=== PATIENT | female | born 1995 | race Caucasian/White ===

== ENCOUNTER 2024-05-25 08:02 | Outpatient (AMB) | payer OTHER, SELFPAY ==
--- OUTSIDE RECORDS SUMMARY | 2024-05-25 08:04 | XMS_ITS | Clinical Summary ---
Author Organization [address] Address [address] [place] [address] [place] [id number] Phone Care Team Providers Care Mineral Technologist Name Role Phone Vicki Miller MD Primary Care Provider [phone] Allergies Active Allergy Reactions Criticality Noted Date Comments Acetaminophen Headache,Nausea And Vomiting 08/08/2011 Fentanyl 09/05/2011 Nausea,vomiting Sumatriptan Succinate 02/13/2011 Cough blood and chest hurts Medications Medication Sig Dispensed Refills Start Date End Date Status levothyroxine sodium (LEVOTHYROXINE ORAL) Take by mouth. Active OMEPRAZOLE ORAL Take 20 mg by mouth. 07/19/2021 Active ARIPiprazole (ABILIFY) 15 mg tablet Take 1 Tablet by mouth daily. Active clotrimazole-beta methasone (LOTRISONE) 1-0.05 % cream Apply locally BID x 5 days 11/11/2023 Active drospirenone-ethi nyl estradioL (GIANVI,ARYA,YA Z) 3-0.02 mg per tablet Take 1 Tablet by mouth daily for 360 days. 11/11/2023 11/05/2024 Active FLUoxetine (PROzac) 10 mg capsule TAKE 1 CAPSULE BY MOUTH EVERY DAY 07/19/2021 Active melatonin-pyridox ine HCl, B6, 10-10 mg tablet, IR and ER, biphasic Daily at bedtime, 0 Refills, Maintenance, 07/19/21 11:54:00 EDT, Partial fill upon patient request if the prescription is for a schedule II opioid drug. 07/19/2021 Active methadone (DOLOPHINE) 10 mg/5 mL solution Take by mouth. 10/14/2019 Acti ve minocycline (MINOCIN,DYNACIN) 100 mg capsule TAKE 1 CAPSULE BY MOUTH 2 TIMES DAILY WITH FOOD-PROTECT SKIN FROM 12/26/2021 Active buPROPion (ZYBAN) 150 mg 12 hr tablet Take 1 tablet (150 mg total) by mouth 1 (one) time each day. 03/11/2024 Active nystatin-triamcin olone (MYCOLOG II) ointment 2x/day to affected area 30 g 05/19/2024 Active fluconazole (DIFLUCAN) 150 mg tablet Take 1 tablet (150 mg total) by mouth every 3 (three) days for 2 doses. 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 Overview (01/14/2024): 07/21/2019 methadone 45-50mg [employer] Depression 08/29/2011 Lumbago 08/05/2011 Post laminectomy syndrome 08/05/2011 Radiculitis, lumbosacral 08/05/2011 Encounters Date Type Department Care Team Description 05/19/2024 3:15 PM EST Office Visit Obstetrics and Gynecology - [address] [phone] Lolis Clement CNM Vulvar itching (Primary Dx); Vaginal discharge from Last 3 Months Immunizations Name Administration Dates Next Due Influenza trivalent, with pr eservative (Fluzone; Afluria) 6mo and older 01/07/2012 Surgical History Surgery Date Site/Laterality Comments BACK SURGERY PROCEDURE: HISTORICAL BACK SURGERY; COMMENT: 04/2011 Medical History Medical History Date Comments Deliberate self-cutting DX:Delib erate self-cutting Asthma DX:Asthma Bipolar disorder (CMS/HCC) DX:Bi polar disorder (HCC) Hypothyroidism DX:Hypothyroidis m Substance abuse (CMS/HCC) DX:Sub stance abuse (HCC) Family History Medical History Relation Name Comments Breast cancer Aunt 2 aunts father side Colon cancer Father Breast cancer Mother 40s Cervical cancer Mother Relation Name Status Comments Aunt Alive Brother Alive Father Mother Alive Sister Alive Social History Tobacco Use Types Packs/Day Years Used Date Smoking Tobacco: Some Days Smokeless Tobacco: Never Tobacco Cessation:Ready to Q uit: Not Asked; Counseling Given: Not Answered Alcohol Use Standard Drinks/Week Comments No 0 (1 standard drink = 0.6 oz pur e alcohol) Sex and Gender Information Value Date Recorded Sex Assigned at Not on file Gender Identity Not on file Sexual Orientation Not on file Job Start Date Occupation Industry Not on file Not on file Not on file Obstetrics History Last Filed Vital Signs Vital Sign Reading Time Taken Comments Blood Pressure 139/87 05/19/2024 1:24 PM EST Pulse 101 05/19/2024 1:24 PM EST Temperature - - Respiratory Rate 16 05/19/2024 1:24 PM EST Oxygen Saturation - - Inhaled Oxygen Concentration - - Weight 114 kg (251 lb 12.8 oz) 05/19/2024 1:24 P M EST Height 158 cm (5' 2.21 ) 05/19/2024 1:24 PM EST Body Mass Index 45.75 05/19/2024 1:24 PM EST Plan of Treatment Health Maintenance Due Date Last Done Comments Pneumococcal Vaccine: Pediatrics (0 to 5 Years) and At-Risk Patients (6 to 64 Years) (1 of 2 - PCV) 1999 Hepatitis B Vaccines (1 of 3 - 19+ 3-dose series) 2012 Cholesterol Screening (Lipid Panel) 03/30/2022 11/18/2011 Depression Screening 03/30/2022 Medicare Annual Wellness Visit 03/30/2022 Social Influencers of Health Screening 03/30/2022 COVID-19 Vaccine ( season) 2023 06/28/2023, 10/02/2020, 09/04/2020 Cervical Cancer Screening: Pap Smear 07/02/2025 07/02/2022, 07/02/2022 DTaP,Tdap,and Td Vaccines (2 - Td or Tdap) 07/20/2031 07/19/2021 HIV Screening Completed 08/08/2011 Hepatitis C Screening Completed 08/08/2011 Influenza Vaccine Completed 12/06/2023, , 03/11/2021, Additional history exists HIB Vaccines Aged Out No longer eligi ble based on patient's age to complete this topic HPV Vaccines Aged Out No longer eligi ble based on patient's age to complete this topic Hepatitis A Vaccines Aged Out No long er eligible based on patient's age to complete this topic IPV Vaccines Aged Out No longer eligi ble based on patient's age to complete this topic MMR Vaccines Aged Out No longer eligi ble based on patient's age to complete this topic Meningococcal ACWY Vaccine Aged Out N o longer eligible based on patient's age to complete this topic RSV Immunization Patients Under 20 months Aged Out No longer eligible based on patient's age to complete this topic Varicella Vaccines Aged Out No longer eligible based on patient's age to complete this topic Procedures Procedure Name Priority Date/Time Associated Diagnosis Comments POC WET MOUNT Routine 05/19/2024 2:01 PM EST Vulvar itching PAP SMEAR Routine 07/02/2022 LIPID PANEL Routine 11/18/2011 HEPATITIS C SCREENING Routine 08/08/2011 HIV SCREENING Routine 08/08/2011 from Last 3 Months or Most Recently Relevant to Health Maintenance Results * (ABNORMAL) POC Wet Mount (05/19/2024 2:01 PM EST) Trichomonas, Wet Prep POC Absent Absent Yeast, Wet Prep POC Positive(A) Not Applicable, Negative Clue Cells, Wet Prep POC Negative Not Applicable, Negative Whiff Test, Wet Prep POC Negative Not Done, Negative PH FL Type POC 4.0 Vaginal Fluid Vaginal structure / Unknown 05/19/2024 2:01 PM EST Lolis Clement CNM POINT OF CARE TEST ENTER/EDIT ORDERABLES * Pap smear (07/02/2022) 07/02/2022 Narrative HISTORICAL TESTING LAB RESULTING AGENCY - 07/14/2022 6:25 AM EDT [id number] THINPREP PAP, IMAGED: NEGATIVE FOR SQUAMOUS INTRAEPITHELIAL LESION AND MALIGNANCY . ORION CELESTIN(ASCP) (CASE ELECTRONICALLY SIGNED 07 12 2022) ADEQUACY: SATISFACTORY ENDOCERVICAL/TRANSFORMATION ZONE COMPONENT PRESENT. SOURCE: THINPREP PAP HPV IF ASCUS, CERVICAL, IMAGED CLINICAL INFORMATION: HPV IF DIAGNOSIS OF ASCUS. PAP HX NEGATIVE, [Z01.419] Ursula Galeanonz CN LAB CYTOLOGY ORDERAB LES HISTORICAL TESTING LAB RESULTING AGENCY * (ABNORMAL) Lipid panel (11/18/2011) LDL/HDL Ratio 4 0 - 4 Triglycerides 243(A) 0 - 150 mg/dL Cholesterol 193 0 - 200 mg/dL HDL 52 40 mg/dL LDL Cholesterol 93(A) 0 - 10 mg/dL Blood Venous blood specimen / Unknown Historical Provider LAB BLOOD ORDERAB LES * HIV Screening (08/08/2011) Pathologist [facility] HIV Screening Abstracted Historical Provider [facility] * Hepatitis C Screening (08/08/2011) Pathologist [facility] Hepatitis C Screening Abstracted Historical Provider MD GANN MAINTENJEN E from Last 3 Months or Most Recently Relevant to Health Maintenance Care Teams Mineral Technologist Relationship Specialty Start Date End Date Vicki Miller MD [address] [place] [address] , [address] [facility] D/B/A: [facility] [place] Diallo PCP - General Internal Medicine 06/13/14
--- OUTSIDE RECORDS SUMMARY | 2024-05-25 08:04 | XMS_ITS | Encounter Summary ---
Author Organization [facility] Address [address] [place] [address] Care Team Providers Care Inner Tube Cutter Name Role Phone Vicki Miller MD Primary Care Provider [phone] Reason for Visit * Reason Comments Vaginitis/Bacterial Vaginosis Vaginal Discharge Encounter Details Date Type Department Care Team (Late st Contact Info) Description 05/19/2024 3:15 PM EST Office Visit Obstetrics and Gynecology - [address] [phone] Lolis Clement, [address] [place] [address] Vulvar itching (Primary Dx); Vaginal discharge Social History Tobacco Use Types Packs/Day Years [...] file Not on file Not on file documented as of this encounter Last Filed Vital Signs Vital Sign Reading [...] Mass Index 45.75 05/19/2024 1:24 PM EST documented in this encounter Ordered Prescriptions Prescription Sig Dispensed Refills Start Date End Da te nystatin-triamcinolone (MYCOLOG II) ointment 2x/day to affected area 30 g 05/19/2024 fluconazole (DIFLUCAN) 150 mg tablet Take 1 tablet (150 mg total) by mouth every 3 (three) days for 2 doses. If symptoms not resolved in 3 days, take second dose 2 tablet 05/19/2024 05/23/2024 documented in this encounter Progress Notes * Lolis Juanita Clement, CARITO - 05/19/2024 3:15 PM EST VULVAR SKIN CARE GUIDELINES NOTE: The goal is to promote healthy vulvar skin. This is done by decreasing and removing chemicals, moisture, or rubbing (friction). Products listed below have been suggested for use because of their past success in helping to decrease or relieve vulvar/vaginal burning, irritation, or itching. LAUNDRY PRODUCTS 1. Use the detergent brand ALL FREE CLEAR on all laundry that goes into your washer, every load, every time. NO SUBSTITUTIONS. Use 1/3 to ?? the suggested amount per load. 2. Do not use fabric softeners or dryer sheets in the washer or dryer, even those advertised as ???free?? . If you use a shared washer or dryer, such as a laundromat, apartment, or dorm you must handwash, in ALL FREE CLEAR and line dry your underwear . You can use dryer balls to help soften clothes. 3. Stain removing products (including bleach). Soak and rinse in clear water all underwear and towels on which you have used a stain removing product. Then wash in your regular washing cycle using ALL FREE CLEAR. This removes as much of the product as possible. White vinegar or lemon juice, 1/4 to 1/3 cup per laundry load, can be used to freshen clothing and remove oils. CLOTHING 1. Wear white all cotton underwear, not nylon with a cotton crotch. Cotton allows air in and moisture out. Do not wear underwear when sleeping at night. Do not wear thongs. Loose fitting cotton boxers or cotton pajama bottoms are fine. 2. Avoid pantyhose. If you must wear them, either cut out the homero crotch (if you cut out the crotch be sure to leave about 1/4 inch of fabric from the seam to prevent running) or wear thigh high hose. Many stores now carry thigh high hose. 3. Avoid tight clothing, especially clothing made of synthetic fabrics. Remove wet bathing and exercise clothing as soon as you can. BATHING AND HYGIENE 1. Do not use bath soaps, lotions, gels, etc. which contain perfumes. These may smell nice, but canbe irritating. This includes many baby products and feminine hygiene products marked gentle or mild . DOVE FOR SENSITIVE SKIN, NEUTROGENA, BASIS, AVEENO, OR PEARS are the soaps we suggest. Your partner needs to use one of these soaps also. Do not use soap directly on the vulvar skin. Just warm wa ter and your hand will keep the vulvar area clean without irritating the skin. 2. Do not use bubble bath, bath salts, and scented oils. You may apply a neutral (unscented, non-perfumed) oil or lotion to damp skin after getting out of the tub or shower. Do not apply lotion directly to the vulva. 3. Do not scrub vulvar skin with a washcloth, washing with your hand and warm water is enough for good cleaning. 4. Pat dry rather than rubbing with a towel. Or, use a chair frame builder on a cool setting to dry the vulva. 5. Baking Soda soaks. Soak in lukewarm (not hot) bath water with 4-5 tablespoons of baking soda to help soothe vulvar itching and burning. Soak 1 to 3 times a day for 10 minutes. If you are using a sitz bath, use 1 to 2 teaspoons of baking soda. 6. Use white, unscented toilet paper. Do not use toilet paper with aloe. 7. Do not use feminine hygiene sprays, perfumes, adult, or baby wipes. You can use Water Wipes or Tucks hemorrhoid pads to clean if you feel the need. If urine causes burning of the skin, pour lukewarm water over the vulva while urinating. Pat dry rather than wiping. 8. Do not use deodorized pads and tampons. Tampons may be used when the blood flow is heavy enough to soak one tampon in four hours or less. Tampons are safe for most women, but wearing them too longor when the blood flow is light may result in vaginal infection, increased discharge, odor, or toxic shock syndrome. Also, use only pads that have a cotton liner, not nylon mesh weave, that comes in contact with your skin. Nylon traps moisture and keeps blood and discharge against your skin longer.Cotton unscented pads STAYFREE, CAREFREE, or 7th GENERATION. 9. Do not use xvve-vqw-cxqvkpa creams or ointments until you ask your health care provider. When buying ointments, be sure that they are paraben and fragrance-free. 10. Small amounts of coconut oil, extra virgin olive oil, vegetable oil, zinc oxide ointment, or plain Vaseline may be applied to your vulva as often as needed to protect the skin. It also helps to decrease skin irritation during your period and when you urinate. 11. Do not douche. Baking soda soaks or rinsing with warm water will help rinse away extra discharge and help with odor. 12. Do not shave or use hair removal products on the vulvar area. You may use scissors to trim the pubic hair close to the vulva. Laser hair removal is an option. 13. Some women may have problems with chronic dampness. Keeping dry is important. Do not wear pads on a daily basis. Choose cotton fabrics whenever you can. Keep an extra pair of underwear with you and change if you become damp. GOLD WINTER or ZEASORB powder may be applied to the groin area 1 to 2 times per day to help absorb moisture. Do not use powders that contain cornstarch. 14. Dryness and irritation during intercourse may be helped by using a lubricant. Use a small amount of a pure vegetable oil (solid, liquid, or extra virgin olive oil). These oils contain no chemicals to irritate vulvar/vaginal skin. Vegetable oils will rinse away with water and will not increase your chances of infection. Wdle-csf-rutlrdz water-based lubricants tend to dry out before intercourseis over, causing small tears in the vagina, and may also contain chemicals that can irritate your vulvar skin. It may be helpful to use a non-lubricated, non-spermicidal condom, and use vegetable oilas the lubricant. This will help keep the semen off the skin which can decrease burning and irritation after intercourse. CONTROL OPTIONS 1. control pills do not increase your chances of getting a yeast infection. 2. Lubricated condoms, contraceptive jellies, creams, or sponges may cause itching and burning. 3. The use of latex condoms with a vegetable oil as a lubricant (#14 above) is suggested to protectyour skin. Petroleum-based lubricants may affect the integrity of condoms when used for control or prevention of sexually transmitted infections. Our experience has not found this to be a problem with vegetable-based oils. However, the Centers for Disease Control recommend that condoms not beused with any oil-based lubricants for control or prevention of sexually transmitted disease. * Lolis Clement CNM - 05/19/2024 3:15 PM EST Encounter Date: 05/19/2024 Chief Complaint Patient presents with Vaginitis/Bacterial Vaginosis Subjective: Kalyn Weathers is a 29 y.o. who presents for evaluation of a vaginal infection. Main symptom is discharge which is also associated with itching. Symptoms started a couple of weeks ago. She has tried Monistat 7 which helped some but sx continue. She denies urinary symptoms, pelvic pain, fevers, chills. She is sexually active with one male partner. She uses vasectomy for contraception. No condoms. Declines STI testing. Review of Systems: As in HPI. All other systems reviewed and negative. Patient Active Problem List Diagnosis Depression Lumbago Methadone maintenance therapy patient ([facility]) Post laminectomy syndrome Radiculitis, lumbosacral Past Medical History: Diagnosis Date Asthma DX:Asthma Bipolar disorder (CMS/[facility]) DX:Bipolar disorder (HCC) Deliberate self-cutting DX:Deliberate self-cutting Hypothyroidism DX:Hypothyroidism Substance abuse (CMS/[facility]) DX:Substance abuse (HCC) Past Surgical History: Procedure Laterality Date BACK SURGERY PROCEDURE: HISTORICAL BACK SURGERY; COMMENT: 04/2011 Family History Problem Relation Name Age of Onset Breast cancer Mother 40s Cervical cancer Mother Colon cancer Father Breast cancer Aunt 2 aunts father side Social History Socioeconomic History Marital status: Single Spouse name: None Number of children: None Years of education: None Highest education level: None Occupational History None Tobacco Use Smoking status: Some Days Smokeless tobacco: Never Substance and Sexual Activity Alcohol use: No Drug use: No Sexual activity: None Comment: boyfriend x 3 years Other Topics Concern None Social History Narrative None OB History No obstetric history on file. Prior to Admission medications Medication Sig Start Date End Date Taking? Authorizing Provider buPROPion (ZYBAN) 150 mg 12 hr tablet Take 1 tablet (150 mg total) by mouth 1 (one) time each day. 03/11/24 Yes Historical Provider, ARIPiprazole (ABILIFY) 15 mg tablet Take 1 Tablet by mouth daily. Historical Provider, clotrimazole-betamethasone (LOTRISONE) 1-0.05 % cream Apply locally BID x 5 days 11/11/23 HistoricalProviderMD drospirenone-ethinyl estradioL (GIANVI,ARYA,ANGI) 3-0.02 mg per tablet Take 1 Tablet by mouth daily for 360 days. 11/11/23 11/05/24 Historical Provider, fluconazole (DIFLUCAN) 150 mg tablet Take 1 tablet (150 mg total) by mouth every 3 (three) days for2 doses. If symptoms not resolved in 3 days, take second dose 05/19/24 05/23/24 Lolis Clement CNM FLUoxetine (PROzac) 10 mg capsule TAKE 1 CAPSULE BY MOUTH EVERY DAY 07/19/21 Historical Provider, levothyroxine sodium (LEVOTHYROXINE ORAL) Take by mouth. Historical Provider, melatonin-pyridoxine HCl, B6, 10-10 mg tablet, IR and ER, biphasic Daily at bedtime, 0 Refills, Maintenance, 07/19/21 11:54:00 EDT, Partial fill upon patient request if the prescription is for a schedule II opioid drug. 07/19/21 Historical Provider, methadone (DOLOPHINE) 10 mg/5 mL solution Take by mouth. 10/14/19 Historical Provider, minocycline (MINOCIN,DYNACIN) 100 mg capsule TAKE 1 CAPSULE BY MOUTH 2 TIMES DAILY WITH FOOD-PROTECT SKIN FROM 12/26/21 Historical Provider, nystatin-triamcinolone (MYCOLOG II) ointment 2x/day to affected area 05/19/24 Lolis Clement CNM OMEPRAZOLE ORAL Take 20 mg by mouth. 07/19/21 Historical Provider, Allergies Allergen Reactions Acetaminophen Headache and Nausea And Vomiting Fentanyl Nausea,vomiting Sumatriptan Succinate Cough blood and chest hurts Objective: Vitals: 05/19/24 1324 BP: 139/87 BP Location: Right arm Patient Position: Sitting BP Cuff Size: Adult Pulse: 101 Resp: 16 Weight: 114 kg (251 lb 12.8 oz) Height: 1.58 m (62.21 ) Gen: Alert, cooperative. Well-appearing on today's exam NEUROLOGIC: speech fluent, grossly intact PSYCH: Normal affect. LYMPH: No inguinal lymphadenopathy. ABDOMEN: Soft, non-tender, no palpable masses or organomegally. PELVIC: External Genitalia: Normal appearing external genitalia, no lesions Urethral meatus: Normal Vagina: Normal appearance. Mucosa is pink. Mod amt white discharge. No lesions. Cervix: Normal in appearance without lesions. Uterus: Small, mobile, anteverted, non-tender. Adnexa: No palpable masses or tenderness ANUS: Normal, no lesions EXT: No edema, tenderness, discoloration Wet mount: neg clue/trich SCOTTY: pos yeast Whiff: neg pH: 4.0 All tests above performed in office and reviewed by me today Assessment/Plan: 29 y.o. with 1. Vulvar itching POC Wet Mount 2. Vaginal discharge Orders Placed This Encounter Procedures POC Wet Mount Reviewed vulvar and vaginal health and hygiene and how to use medications Will tx based on results. Follow up in about 6 months (around 11/16/2024) for bilingual trainer annual. Lolis Clement CNM documented in this encounter Plan of Treatment Not on file documented as of this encounter Procedures Procedure Name Priority Date/Time Associated Diagnosis Comments POC WET MOUNT Routine 05/19/2024 2:01 PM EST Vulvar itching documented in this encounter Results * (ABNORMAL) POC Wet Mount (05/19/2024 [...] CNM POINT OF CARE TEST ENTER/EDIT ORDERABLES documented in this encounter Visit Diagnoses Diagnosis Vulvar itching- Primary Vaginal discharge Leukorrhea, not specified as infective documented in this encounter Historical Medications * This list may reflect changes made after this encounter. Medication Sig Dispensed Refills Start Date End Date buPROPion (ZYBAN) 150 mg 12 hr tablet Take 1 tablet (150 mg total) by mouth 1 (one) time each day. 03/11/2024 added in this encounter Care Teams Inner Tube Cutter Relationship Specialty Start Date End Date Vicki Miller MD [address] [place] [address] , [address] [facility] D/B/A: [facility] [place] PCP - General Internal Medicine 06/13/14 documented as of this encounter
--- NOTE | 2024-05-25 11:45 | MHC.OFFVISWM ---
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 Allergies fentanyl Allergy (Unknown, Verified 05/18/24 15:51) rash sumatriptan [Imitrex] Allergy (Unknown, Verified 05/18/24 15:51) chest pain Medication List - Last Reconciled 05/25/24 by Michael Fuentes MD aripiprazole (Abilify) 30 mg PO BEDTIME duloxetine 60 mg PO DAILY levothyroxine 50 mcg PO DAILY zolpidem (Ambien) 5 mg PO BEDTIME HPI 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: Details: Start time: 11.42amam, End time: 12.18pm ?I spent 31 minutes speaking with the patient on the phone plus an additional 5 minutes reviewing and updating records for a total of 36 minutes HPI Comments Details: Previous weight loss efforts: exercise, self diets Wakes up: 6am, Sleeps: 11pm Breakfast: 6am (Bagels, cereal, microwaved food), or Slimfast Lunch: 12pm (Lean cousine, Delly sandwich) Dinner: 6pm (chicken Snacks: 3-4pm (Pretzels and hummus, [employer] protein bar, 8-9pm (Pretzels and hummus, crackers) Exercise: Has home treadmill Fluids: Coffee: just quit, tea: rarely, soda: none, juice: Gatorade zero, ETOH: rarely PFSH Medical History (Updated 05/25/24 @ 11:49 by Michael Fuentes MD) Insomnia Back pain Depression Bipolar 1 disorder Morbid obesity Surgical History (Updated 05/18/24 @ 15:53 by Sophie Bingham CMA) Hx of tonsillectomy Hx of discectomy Family History (Updated 05/18/24 @ 15:54 by Sophie Bingham CMA) Mother Depression Anxiety Father No problems noted. Social History (Updated 05/18/24 @ 15:54 by Sophie Bingham CMA) Alcohol intake: current Alcohol intake frequency: a few times a month Patient Tobacco Use Status: Former Tobacco user Telehealth Telehealth Telehealth Platform: Telephone Location of provider rendering services: practice address Location of patient: address on file Patient Identification confirmed using: Name, : Yes Telehealth method: voice only Patient verbally consented to treatment: Yes Patient verbally consented to billing insurance company: Yes Patient informed of any privacy concerns related to visit: Yes Minutes spent on Phone/Video with Pt.: 36 Assessment & Plan Assessment & Plan (1) Morbid obesity: Code(s): E66.01 - Morbid (severe) obesity due to excess calories Category: Medical Plan: 1.? Plan for lap sleeve gastrectomy. If diaphragmatic or ventral hernias are present at time of surgery, these will be repaired laparoscopically as well. I emphasized the importance of close follow-up, adherence to instructions and good communication. The surgery does not replace the need to change your lifestlyle which is the cause of the obesity problem. The surgery provides the motivation to try again to change your lifestyle, it reduces the appetite and make the transition to a better lifestyle easier and doubles the amount of weight you would lose compared to doing the lifestyle change without the surgery. You will need to be on a liquid diet with protein shakes for 2 weeks before surgery to maximize weight loss and boost your nutritional status to recover better from surgery and also for the first two weeks after surgery to let the stomach heal before we introduce other foods. After the first 2 weeks we will introduce protein bars and soft foods like scrambled eggs, cottage cheese and yogurt and after the 6th week will introduce meat, fish and cooked vegetables in small amounts. Over time you should be able to eat everything in small amounts. Side effects like nausea, vomiting, heartburn or abdominal pain are not common in the practice unless you are not following in the practice. This operation requires lifetime commitment to following in our practice and communication with me. You will much less weight and experience side effects if you don?t communicate or not following in the practice. Complications are rare and in our practice is about 1/10 of the national average. However, you can develop bleeding that may require transfusion (hasn?t happened for year in the practice), you may from complications (we did not have any deaths in the practice) and infections. Infections are usually a result of breakdown in communication or not understanding or following directions correctly. They are difficult to treat, they can happen during the first 6 weeks, they may require to be in the hospital for weeks or even months, not being able to eat by mouth and you may have drains and surgeries to try and correct the issue. Other risks and complications include possible conversion to an open procedure, leaks, small bowel obstruction, blood clots, cardiac, or pulmonary complications, as joint terminal attack controller complications such as ulcers, insufficient weight loss and vitamin deficiencies. 2. You will receive a link of our software shamika to generate an individualized nutritional and exercise plan specific for you. Please send me a screenshot of the plans you will generate Meal to include lean meat (beef, fish, pork, turkey, chicken), or panamanian yogurt, or egg whites, or beans with a salad with olive oil and fruits (berries, pears, apples, kiwi). Avoid salt, breads, potatoes, rice, pasta, desserts. ?3. If you choose shakes, each shake would be drunk slowly, like coffee in a period of 2 hours. ?4. If you choose bars, cut each bar in 4 pieces and eat each piece in 30min ?to make each bar last 2 hours. ?5. I emphasized the importance of measuring accurately the food portion and measure it when serving the food in plate ?6. The meal portions include a specific number of forks of meat and salad. You always eat the meat portion but you can replace up to half of salad/vegetables portion with rice, potatoes or pasta, or a fruit ?if you like. The less you do it the better weight loss will be. ?7. One full-size fork is what it can be scooped on the fork without falling aside and not what can be bit with the fork. Use regular forks like those you find in a typical restaurant. ?8.? Please buy the body composition scale we discussed and send me weight measurements as soon as possible and then once a week. Always include your diet and exercise plan. 9. The best choice would be to purchase a stationary bike, elliptical or treadmill at home that can track calories. Let me know if you do so I can give you an exercise plan. ?10.?It is important of avoiding and for at least 18 months postoperatively and has been discussed at the infosession. ?11. Goal is to lose at least 1.5-2lbs per week ?12. Goal to lose 10% of your weight before surgery, which is about 25lbs. Ultimate weight goal: 225lbs before surgery 13. Please follow the diet plan exactly without any change. If you don't like something about the plan or you feel hungry you need to communicate with me so I can help you revise the plan. You should not change the plan yourself. 14. To be scheduled for EGD due to the history of sleeve gastrectomy and anemia. The possibility of biopsies was discussed. Patient needs to avoid use of NSAIDs and aspirin for 1 week prior to EGD. You must be on liquids only the day before your endoscopy. Risks of perforation and bleeding was discussed with the patient. This will be an outpatient procedure with IV sedation. Orders: Orders Insulin Today E66.01 - Morbid (severe) obesity due to excess calories Hemoglobin A1c Today E66.01 - Morbid (severe) obesity due to excess calories H Pylori Breath Test Today E66.01 - Morbid (severe) obesity due to excess calories Lipid Panel Today E66.01 - Morbid (severe) obesity due to excess calories Vitamin B12 and Folate Today E66.01 - Morbid (severe) obesity due to excess calories C Reactive Protein Today E66.01 - Morbid (severe) obesity due to excess calories Vitamin B1 Today E66.01 - Morbid (severe) obesity due to excess calories Vitamin A Today E66.01 - Morbid (severe) obesity due to excess calories TSH reflex Free T4 Today E66.01 - Morbid (severe) obesity due to excess calories Vitamin D 25-OH Total Today E66.01 - Morbid (severe) obesity due to excess calories XR chest 2V Today E66.01 - Morbid (severe) obesity due to excess calories FL upper GI w air Today E66.01 - Morbid (severe) obesity due to excess calories Complete Blood Count Auto Diff Today E66.01 - Morbid (severe) obesity due to excess calories IRON PROFILE Today E66.01 - Morbid (severe) obesity due to excess calories Comprehensive Met. Panel Today E66.01 - Morbid (severe) obesity due to excess calories Zinc Today E66.01 - Morbid (severe) obesity due to excess calories Ferritin Today E66.01 - Morbid (severe) obesity due to excess calories US abdomen comp w elastography Today E66.01 - Morbid (severe) obesity due to excess calories ECG 12 lead EKG Today E66.01 - Morbid (severe) obesity due to excess calories Referrals Behavioral Health Referral E66.01 - Morbid (severe) obesity due to excess calories Nutrition/Dietitian Referral E66.01 - Morbid (severe) obesity due to excess calories
[2024-05-25 11:56] VITALS: BMI 40.2
== END 2024-05-25 12:19 | disposition home or self-care (01) ==
LOC: HO.HBS 08:02
PROVIDERS: PCP Pediatrics; Visit Provider Surgery
DX: E66.813 Obesity, class 3 (principal); Z68.41 Body mass index [BMI] 40.0-44.9, adult
CPT/HCPCS: 99203

== ENCOUNTER → 2024-05-25 08:02 | Outpatient (BNVA) | payer OTHER, SELFPAY | PROVIDERS: PCP Pediatrics; Visit Provider Surgery ==

== ENCOUNTER 2024-06-10 06:08 | Outpatient (REF) | payer OTHER, SELFPAY ==
--- NOTE | ~2024-06-10 | XR_ITS ---
CLINICAL HISTORY: E66.01 - Morbid (severe) obesity due to excess calories 2 view chest x-ray Comparison: None Findings: No focal consolidation. No pleural effusion or pneumothorax. Normal size cardiac silhouette. No acute fracture. IMPRESSION: 1. No acute findings. This document has been electronically signed by: Rola Hendrix MD on 06/10/2024 11:08:03
--- OUTSIDE RECORDS SUMMARY | 2024-06-10 06:11 | XMS_ITS | Encounter Summary ---
Author Organization [facility] Address [address] [place] [address] Care Team Providers Care Team Driver Name Role Phone Vicki Miller MD Primary Care Provider [phone] Reason for Visit * Reason Comments Vaginitis/Bacterial Vaginosis Vaginal Discharge Encounter Details Date Type Department Care Team (Late st Contact Info) Description 05/19/2024 3:15 PM EST Office Visit Obstetrics and Gynecology - [address] [address] Lolis Clement, [address] [place] [address] Vulvar itching (Primary Dx); Vaginal discharge Social History Tobacco Use Types Packs/Day Years Used Date Smoking Tobacco: Some Days Smokeless Tobacco: Never Tobacco Cessation:Ready to Q uit: Not Asked; Counseling Given: Not Answered Alcohol Use Standard Drinks/Week Comments No 0 (1 standard drink = 0.6 oz pur e alcohol) Comments Unknown Sex and Gender Information Value Date Recorded Sex Assigned at Not on file Legal Sex Female 6:52 AM EST Gender Identity Not on file Sexual Orientation Not on file documented as of this [...] in this encounter Ordered Prescriptions Prescription Sig Dispense Quantity Refills Last Filled Start Date End Date nystatin-triamcino lone (MYCOLOG II) ointment 2x/day to affected area 30 g 05/19/2024 fluconazole (DIFLUCAN) 150 mg tablet Take 1 tablet (150 mg total) by mouth every 3 (three) days for 2 doses. If symptoms not resolved in 3 days, take second dose 2 tablet 05/19/2024 documented in this encounter Progress Notes * Lolis Grant Racquel, CARITO - 05/19/2024 3:15 PM EST VULVAR [...] rubbing with a towel. Or, use a unhairing machine operator on a cool setting to dry the [...] or 7th GENERATION. 9. Do not use pwgo-zuc-qzcslyh creams or ointments until you ask your [...] will not increase your chances of infection. 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) Post laminectomy syndrome Radiculitis, lumbosacral Past Medical History: Diagnosis Date Asthma DX:Asthma Bipolar disorder (CMS/HCC) DX:Bipolar disorder (HCC) Deliberate self-cutting DX:Deliberate self-cutting Hypothyroidism DX:Hypothyroidism Substance abuse ([facility]) DX:Substance abuse ([facility]) Past Surgical History: Procedure Laterality Date BACK [...] Apply locally BID x 5 days 11/11/23 HistoricalProMD inga drospirenone-ethinyl estradioL (GIANVI,LORYNA,ANGI) 3-0.02 mg per tablet Take 1 Tablet [...] in about 6 months (around 11/16/2024) 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 Lolis Clement CNM documented in this [...] / Unknown 05/19/2024 2:01 PM EST Lolis RANDLE POINT OF CARE TEST ENTER/ED IT ORDERABLES Final Result documented in this encounter Visit Diagnoses Diagnosis Vulvar itching- Primary Vaginal discharge Leukorrhea, not specified as infective documented in this encounter Historical Medications * This list may reflect changes made after this encounter. buPROPion (ZYBAN) 150 mg 12 hr tablet Take 1 tablet (150 mg total) by mouth 1 (one) time each day. 03/11/2024 added in this encounter Care Teams Team Driver Relationship Specialty Start Date End Date Vicki Miller MD [address] [place] [address] , [address] [facility] [place] PCP - General Internal Medicine 06/13/14 documented as of this encounter
[2024-06-10 06:25] LABS: MANUAL DIFF FLAG NO
--- NOTE | 2024-06-10 06:44 | ECG_ITS ---
Test Reason : E66.01 Blood Pressure : */* mmHG Vent. Rate : 81 BPM Atrial Rate : 81 BPM P-R Int : 170 ms QRS Dur : 82 ms QT Int : 372 ms P-R-T Axes : 68 50 54 degrees QTcB Int : 432 ms Normal sinus rhythm Normal ECG No previous ECGs available Referred By: Michael Fuentes Electronically Signed By: MARA FALLON
[2024-06-10 07:44] LABS: Basophils Percent Auto 0.4 % (0-2); Eosinophils Absolute Auto 0.1 X10*3/uL (0.0-0.4); Eosinophils Percent Auto 0.7 % (0-4); Hematocrit 40.1 % (37.0-47.0); Hemoglobin 13.3 g/dl (12.0-16.0); Imm Gran Abs Auto 0.05 X10*3/uL (0.00-0.03); Imm Gran Pct Auto 0.6 % (0.0-0.4); Lymphocytes Absolute Auto 3.7 X10*3/uL (1.2-4.9); Lymphocytes Percent Auto 43.8 % (20-40); Mean Corpuscular HGB Conc 33.2 g/dl (31.0-35.0); Mean Corpuscular Hemoglobin 28.1 pg (27.0-33.0); Mean Corpuscular Volume 84.8 fL (80.0-98.0); Mean Platelet Volume 9.8 fL (9.4-12.3); Monocytes Absolute Auto 0.5 X10*3/uL (0.1-1.2); Monocytes Percent Auto 5.9 % (2-11); Neutrophils Absolute Auto 4.1 x10*3/uL (2.0-8.3); Neutrophils Percent Auto 48.6 % (45-73); Platelet Count 262 X10*3/uL (160-400); Red Blood Count 4.73 X10*6/uL (4.20-5.50); Red Cell Distribution Width 12.6 % (11.0-16.0); White Blood Count 8.5 X10*3/uL (4.8-10.8)
[2024-06-10 07:56] LABS: Estimated Average Glucose 235 mg/dL; Hemoglobin A1C 289.8588 umol/L; Hemoglobin A1c % 9.8 % (<6.0); Total Hemoglobin (HGBA1C) 3471.7924 umol/L
[2024-06-10 08:21] LABS: Alanine Aminotransferase 163 U/L (0-31); Alkaline Phosphatase 82 U/L (39-117); Anion Gap 12 (12-20); Aspartate Amino Transferase 95 U/L (5-31); Bilirubin Total 0.5 mg/dL (0.0-1.0); Blood Urea Nitrogen 11 mg/dL (9-16); C Reactive Protein 1.85 mg/dL (< or = 0.50); Calcium 9.3 mg/dL (8.4-10.2); Carbon Dioxide 26 mmol/L (22-29); Chloride 102 mmol/L (96-108); Cholesterol 221 mg/dL (<200); Estimated Glomerular Filt Rate > 60; Glucose Random 147 mg/dL (60-115); HDL Cholesterol 43 mg/dL (>40); Iron 70 mcg/dL (30-160); LDL Cholesterol Calculated 151 mg/dL (<100); Percent Iron Saturation 22 % (15-50); Potassium 3.8 mmol/L (3.3-5.1); Sodium 136 mmol/L (135-145); Total Iron Binding Capacity 314 mcg/dL (228-428); Total Protein 7.6 g/dL (6.5-8.0); Triglycerides 137 mg/dL (<150); Unsaturated Iron Binding 244 ug/dL
[2024-06-10 08:53] LABS: Folate 8.6 ng/mL (> or = 4.0); Vitamin B12 559 pg/mL (200-900)
[2024-06-10 08:57] LABS: Ferritin 165 ng/mL (10-122); Insulin 21 uU/mL (2-29); TSH reflex Free T4 3.71 uIU/mL (0.32-4.0); Vitamin D 25-OH Total 19.5 ng/mL (>30)
[2024-06-14 12:08] LABS: Zinc 76 mcg/dL (60-130)
[2024-06-14 13:23] LABS: Vitamin A 48 mcg/dL (38-98)
[2024-06-15 15:24] LABS: Vitamin B1 9 nmol/L (8-30)
== END 2024-06-10 06:09 | disposition home or self-care (01) ==
LOC: HO.XRAY 06:08
PROVIDERS: PCP Pediatrics; Visit Provider Surgery
DX: E66.01 Morbid (severe) obesity due to excess calories (principal); Z13.1 Encounter for screening for diabetes mellitus
CPT/HCPCS: 36415; 71046; 80053; 80061; 82306; 82607; 82728; 82746; 83036; 83525; 83540; 84425; 84443; 84590; 84630; 85025; 86140; 93005

== ENCOUNTER → 2024-06-10 06:25 | Outpatient (BNV) | payer OTHER, SELFPAY | PROVIDERS: PCP Pediatrics; Visit Provider Radiology Diagnostic Radiology | DX: E66.01 Morbid (severe) obesity due to excess calories (principal) | CPT/HCPCS: 71046 ==

== ENCOUNTER → 2024-06-10 06:44 | Outpatient (BNV) | payer OTHER, SELFPAY | PROVIDERS: PCP Pediatrics; Visit Provider Internal Medicine | DX: E66.01 Morbid (severe) obesity due to excess calories (principal) | CPT/HCPCS: 93010 ==

== ENCOUNTER 2024-06-15 09:06 | Outpatient (AMB) | payer OTHER, SELFPAY ==
--- NOTE | 2024-06-15 09:05 | MHC.WMTHER ---
Intake Intake Visit Reasons: TV BH Intake Allergies fentanyl Allergy (Unknown, Verified 05/18/24 15:51) rash sumatriptan [Imitrex] Allergy (Unknown, Verified 05/18/24 15:51) chest pain PFSH Medical History (Updated 05/25/24 @ 11:49 by Michael Fuentes MD) Insomnia Back pain Depression Bipolar 1 disorder Morbid obesity Surgical History (Updated 05/18/24 @ 15:53 by Sophie Bingham CMA) Hx of tonsillectomy Hx of discectomy Family History (Updated 05/18/24 @ 15:54 by Sophie Bingham CMA) Mother Depression Anxiety Father No problems noted. Social History (Updated 05/18/24 @ 15:54 by Sophie Bingham CMA) Alcohol intake: current Alcohol intake frequency: a few times a month Patient Tobacco Use Status: Former Tobacco user Behavioral Health Assessment Weight Management Therapy Therapy Notes Details PT is a 29-year-old female presenting for a behavioral health assessment as part of a surgical weight loss program. She reports that her current weight is the highest she has ever been and that she does not feel healthy. Recently, she was diagnosed with fatty liver, a condition that could improve with weight loss. PT?s primary goal is to achieve better health and feel more energetic. Presenting Concerns Referral Source P Provider. PT had an initial visit with surgeon on 08/22/2024. PT reports she was initially referred by her [facility] counselor. Reason for referral Completion of behavioral health assessment as part of process for weight-loss surgery. Precipitating Event Obesity. Living Situation Current Living Situation Rent At risk of losing current housing? No Satisfied with current living situation? Yes Comments PT lives with her boyfriend and their dog. Food/Weight/Diet Expectations of change The initial goal is to lose 10% of your weight before surgery, about 25 Lbs. The ultimate weight goal is 225 lbs before surgery. PT is implementing the following: Current meal plan: Exercise plan: History/Relationship with food Example of meals before starting the program: Breakfast: Lunch: Dinner: Snacks: Drinks/Liquids: History/Relationship with weight In the last 10 years, the patient's Lowest weight was and highest Social History Family history and relationship PT has been in a relationship with her current partner for about 4 years, she doesn't have children together. Partner has 3 bio-kids and 2 adopted. They get along together. Father is due to colon cancer. Mother is alive, she has a brother and a sister. PT reports she has had a shanna relationship with her mother in the past but they're better now. PT is close to her aunts on her dad's side. Also close to her siblings. 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 Developmental history and status Growing up had reading issues but denies any learning disabilities in childhood. Currently WNL, besides mental health issues and a BYRNES Hx. Social support with the WM Her boyfriend is her biggest support and her 2 aunts. Her mom and siblings are close to her and supportive in her life. Community support PT has a Nathan use counselor through [facility] and an outpatient therapist at [facility]. Also her MH prescriber, PCP. Confucianism/Spirituality None Cultural/Ethnic information PT is from [place]. . Legal Involvement and History Current or historical involvement with the legal system? None currently. Education Highest grade completed 10th. Preferred learning style Written and Learn by doing Currently enrolled in educational program? No Interested in further educational program? Yes (Wants to obtain her GED. ) Educational Interests/Skills PT would like to finish her GED and get a degree. Wants to eventually go back to work as she has been on disability since she was 18 after she injured her back at work. Employment Employment Status Unemployed Wants help to find employment? No Meaningful activities Coloring, reading, watch shows, listen to poadcast. Financial Situation Describe current financial situation Comfortable Financial assistance? [employer], Contributions from your family/friends, SSDI and Other (Medicaid.) Service Service? No Mental Health and Addiction Treatment Current/Past substance abuse? Yes (PT has a history of opioids use. Currently) Comments PT started taking opioids at age 18 due to her back history. She has D/c after her Dr went on leave without proper tampering process. She eventually started buying pills, and switched to heroin. Last time she used heroin about 4 years ago. She has been in Methadone Tx since stopped att [facility]. This medication also helps her with pain. Alcohol: Socially. 1-2 times at month. 1 mixed drink. Cigarettes/Tobacco: None. Cannabis/Edibles: None. Current/Past addictive behavior concerns? No (does $20 dollars on scratch tickets at week. ) Psychiatric history PT started counseling services when she was around 16 years old due to the start of Bipolar disorder. PT states she has never been hospitalized for psych Sx or in crisis, however, she was sectioned 6 years ago due to substance use. PT current attends [facility] treatment at [facility] in [place], She is at 30mg of methadone daily, currently going down to 1Ml a day. She meets with the [facility] counselor twice at month and gets the Methadone for home every 28 Days. PT also attends outpatient services at [facility] ([address] [place] [address]), she meets with a clinician every 2 weeks for counseling and every 1-3 months with a prescriber. PT reports she is diagnosed with Bipolar 2 (manic depression), generalized anxiety disorder, and insomnia. She gets prescribed Abilify 30mg 1 at day, duloxetine 60mg 1 at day and Zolpidem 5mg 1 at bedtime. PT reports she started the duloxetine less than a month ago as she was having major fatigue, and depressive Sx in the morning impacting her functioning. PT has noticed already improvements in her energy levels. PT reports her mental health is a work in progress . Questionnaires PHQ-9 Over the last 2 weeks, how often have you been bothered by any of the following problems? 1. Little interest or pleasure in doing things: not at all 2. Feeling down, depressed, or hopeless: more than half the days 3. Trouble falling or staying asleep, or sleeping too much: more than half the days 4. Feeling tired or having little energy: more than half the days 5. Poor appetite or overeating: several days 6. Feeling bad about yourself - or that you are a failure or have let yourself or your family down: not at all 7. Trouble concentrating on things, such as reading the newspaper or watching television: several days 8. Moving or speaking so slowly that other people could have noticed. Or the opposite - being so fidgety or restless that you have been moving around a lot more than usual: not at all 9. Thoughts that you would be better off or of hurting yourself in some way: not at all Total score: 8 Depression Screening Interpretation: Positive Depression Screening Follow-up: Existing condition and In treatment Depression Screening Done: Yes Source: Developed by Drs. Pradeep Owusu, Sheron Dykes, Johnathan Maya and colleagues, with an educational frankie from [employer]. Binge Eating Scale Group 1 A. I don't feel self-conscious about my wt. or body size when I'm with others. B. I feel concerned about how I look to others, but it normally does not make me fell disappointed with myself C. I do get self-conscious about my appearance and wt. which makes me feel disappointed in myself. D. I feel very self-conscious about my wt. and frequently I feel intense shame and disgust for myself. I try to avoid social contacts because of my self-consciousness. Response Group 1: B Group 2 A. I don't have any difficulty eating slowly in the proper manner. B. Although I seem to gobble down foods, I don't end up feeling stuffed because of eating to much. C. At times, I tend to eat quickly and then, I feel uncomfortably full afterwards. D. I have the habit of bolting down my food, without really chewing it. When this happens I usually feel uncomfortably stuffed because I've eaten to much. Response Group 2: A Group 3 A. I feel capable to control my eating urges when I want to. B. I feel like I have failed to control my eating more than the average person. C. I feel utterly helpless when it comes to feeling in control of my eating urges. D. Because I feel so helpless about controlling my eating I have become very desperate about trying to get control. Response Group 3: A Group 4 A. I don't have the habit of eating when I'm bored. B. I sometimes eat when I'm bored, but often I'm able to get busy and get my mind off food. C. I have a regular habit of eating when I'm bored, but occasionally, I can use some other activity to get my mind off eating. D. I have a strong habit of eating when I'm bored. Nothing seems to help me breath the habit. Response Group 4: C Group 5 A. I'm usually physically hungry when I eat something. B. Occasionally, I eat something on impulse even though I really am not hungry. C. I have the regular habit of eating foods, that I might not really enjoy, to satisfy a hungry feeling even though physically, I don't need the food. D. Although I'm not physically hungry, I get a hungry feeling in my mouth that only seems to be satisfied when I eat a food, like sandwich, that fills my mouth. Sometimes, when I eat the food to satisfy my mouth hunger, I then spit the food out so I won't gain weight. Response Group 5: A Group 6 A. I don't feel any guilt or self-hate after I overeat. B. After I overeat, occasionally I feel guilt or self-hate. C. Almost all the time I experience strong guilt or self-hate after I overeat. Response Group 6: B Group 7 A. I don't lose total control of my eating when dieting even after periods when I overeat. B. Sometimes when I eat a forbidden food on a diet, I feel like I blew it and eat even more. C. Frequently, I have the habit of saying to myself, I've blown it now, why not go all the way, when I overeat on a diet. When that happens I eat more. D. I have a regular habit of starting a strict diets for myself but I break the diets by going on an eating binge. My life seems to be either a feast or famine. Response Group 7: B Group 8 A. I rarely eat so much food that I feel uncomfortably stuffed afterwards. B. Usually about once a month, I each such a quantity of food, I end up feeling very stuffed. C. I have regular periods during the month when I eat large amounts of food, either at mealtime or at snacks. D. I eat so much food that I regularly feel quite uncomfortable after eating and sometimes a bit nauseous. Response Group 8: B Group 9 A. My level of calorie intake does not go up very high or go down very low on a regular basis. B. Sometimes after I overeat, I will try to reduce my caloric intake to almost nothing to compensate for the excess calories I've eaten. C. I have a regular habit of overeating during the night. It seems that my routine is not to be hungry in the morning but overeat in the evening. D. In my adult years, I have had week-long periods where I practically starve myself. This follows periods when I overeat. It seems I live a life of either feast or famine. Response Group 9: B Group 10 A. I usually am able to stop eating when I want to. I know when enough is enough. B. Every so often, I experience a compulsion to eat which I can't seem to control. C. Frequently, I experience strong urges to eat which I seem unable to control, but at other times I can control my eating urges. D. I feel incapable of controlling urges to eat. I have a fear of not being able to stop eating voluntarily. Response Group 10: B Group 11 A. I don't have any problem stopping eating when I feel full. B. I usually can stop eating when I feel full but occasionally overeat leaving me feeling uncomfortably stuffed. C. I have a problem stopping eating once I start and usually I feel uncomfortably stuffed after I eat a meal. D. Because I have a problem not being able to stop eating when I want, I sometimes have to induce vomiting to relieve my stuffed feeling. Response Group 11: A Group 12 A. I seem to eat just as much when I'm with others, Family social gatherings as when I'm by myself. B. Sometimes, when I'm with other persons, I don't eat as much as I want to eat because I'm self-conscious about my eating. C. Frequently, I eat only a small amount of food when others are present, because I'm very embarrassed about my eating. D. I feel so ashamed about overeating that I pick times to overeat when I know no one will see me. I feel like a closet eater. Response Group 12: A Group 13 A. I eat three meals a day with only an occasional between meal snack. B. I eat 3 meals a day, but I also normally snack between meals. C. When I am snacking heavily, I get in the habit of skipping regular meals. D. There are regular periods when I seem to be continually eating, with no planned meals. Response Group 13: B Group 14 A. I don't think much about trying to control unwanted eating urges. B. At least some of the time, I feel my thoughts are pre-occupied with trying to control my eating urges. C. I feel that frequently I spend much time thinking about how much I ate or about trying not to eat anymore. D. It seems to me that most of my waking hours are pre-occupied by thoughts about eating or not eating. I feel like I'm constantly struggling not to eat. Response Group 14: B Group 15 A. I don't think about food a great deal. B. I have strong craving for food but they last only for brief periods of time. C. I have days when I can't seem to think about anything else but food. D. Most of my days seem to be pre-occupied with thoughts about food. I feel like I live to eat. Response Group 15: B Group 16 A. I usually know whether or not I'm physically hungry. I take the right portion of food to satisfy me. B. Occasionally, I feel uncertain about knowing whether or not I'm physically hungry. A these times it's hard to know how much food I should take to satisfy me. C. Even though I might know how many calories I should eat, I don't have any idea what is a normal amount of food for me. Response Group 16: B Binge Eating Score: 12 Score less than 17 Minimal Risk Score between 18-26 Moderate Risk Score between 27-46 High Risk Assessment & Plan Assessment & Plan (1) Insomnia: Code(s): G47.00 - Insomnia, unspecified (2) Bipolar disorder, unspecified: Code(s): F31.9 - Bipolar disorder, unspecified (3) Generalized anxiety disorder: Code(s): F41.1 - Generalized anxiety disorder Plan PT is not cleared yet, she will return in about 3 weeks to continue assessment. We will send a request for her provider to complete mental health questionnaire to support clearance due to complex mental health history. Next shamika: 07/04/2024 at 8am. Telehealth Telehealth Telehealth Telehealth Platform: [facility] Location of provider rendering services: other Location of patient: address on file Patient Identification confirmed using: Name, : Yes Telehealth method: video Patient verbally consented to treatment: Yes Patient verbally consented to billing insurance company: Yes Patient informed of any privacy concerns related to visit: Yes Minutes spent on Phone/Video with Pt.: 60 Coding Level of Care Code New Pt Tele Psy Diag Eval (40374) Patient Type New Diagnoses Insomnia G47.00 Bipolar disorder, unspecified F31.9 Generalized anxiety disorder F41.1 Time Spent (min) 60
--- OUTSIDE RECORDS SUMMARY | 2024-06-15 10:00 | XMS_ITS | Encounter Summary ---
Author Organization [facility] Address [address] [place] [address] Care Team Providers Care Barge Pilot Name Role Phone Vicki Miller MD Primary Care Provider [phone] Reason for Visit * Reason Comments Vaginitis/Bacterial Vaginosis Vaginal Discharge Encounter Details Date Type Department Care Team (Late st Contact Info) Description 05/19/2024 3:15 PM EST Office Visit Obstetrics and Gynecology - [address] [address] Lolis Clement, [address] [place] [address] Vulvar itching (Primary Dx); Vaginal discharge Social [...] rubbing with a towel. Or, use a english division chair on a cool setting to dry the [...] or 7th GENERATION. 9. Do not use kfva-fsv-csjxzph creams or ointments until you ask your [...] will not increase your chances of infection. Iher-cbc-poibejn water-based lubricants tend to dry out before [...] Diagnosis Depression Lumbago Methadone maintenance therapy patient ([facility]/HCC) Post laminectomy syndrome Radiculitis, lumbosacral Past Medical History: Diagnosis Date Asthma DX:Asthma Bipolar disorder (CMS/HCC) DX:Bipolar disorder (HCC) Deliberate self-cutting DX:Deliberate self-cutting Hypothyroidism DX:Hypothyroidism Substance abuse ([facility]) DX:Substance abuse ([facility]) Past Surgical History: Procedure Laterality Date BACK [...] in about 6 months (around 11/16/2024) for obstetrics gynecology md annual. Lolis Clement CNM documented in this [...] 03/11/2024 added in this encounter Care Teams Barge Pilot Relationship Specialty Start Date End Date Vicki Miller MD [address] [place] [address] , [address] [facility] Physician Associ D/B/A: [facility] [place] PCP - General Internal Medicine 06/13/14 documented as of this encounter
--- OUTSIDE RECORDS SUMMARY | 2024-06-15 10:00 | XMS_ITS | Clinical Summary ---
Author Organization [address] Address [address] [place] [address] [place] [address] Phone Care Team Providers Care Restaurant Crew Member Name Role Phone Vicki Miller MD Primary Care Provider [phone] Allergies Active Allergy Reactions Criticality Noted Date Comments Acetaminophen Headache,Nausea And Vomiting 08/08/2011 Fentanyl 09/05/2011 Nausea,vomiting Sumatriptan Succinate 02/13/2011 Cough blood and chest hurts Medications levothyroxine sodium (LEVOTHYROXINE ORAL) Take by mouth. Activ e OMEPRAZOLE ORAL Take 20 mg by mouth. 2 Active ARIPiprazole (ABILIFY) 15 mg tablet Take 1 Tablet by mouth daily. Active clotrimazole-b etamethasone (LOTRISONE) 1-0.05 % cream Apply locally BID x 5 days 4 Active drospirenone-e thinyl estradioL (GIANVI,BALWINDERYNA ,ANGI) 3-0.02 mg per tablet Take 1 Tablet by mouth daily for 360 days. 4 11/06/19 25 Active FLUoxetine (PROzac) 10 mg capsule TAKE 1 CAPSULE BY MOUTH EVERY DAY 2 Active melatonin-pyri doxine HCl, B6, 10-10 mg tablet, IR and ER, biphasic Daily at bedtime, 0 Refills, Maintenance, 07/19/21 11:54:00 EDT, Partial fill upon patient request if the prescription is for a schedule II opioid drug. 2 Active methadone (DOLOPHINE) 10 mg/5 mL solution Take by mouth. 0 Active minocycline (MINOCIN,DYNAC IN) 100 mg capsule TAKE 1 CAPSULE BY MOUTH 2 TIMES DAILY WITH FOOD-PROTECT SKIN FROM SUN 2 Active buPROPion (ZYBAN) 150 mg 12 hr tablet Take 1 tablet (150 mg total) by mouth 1 (one) time each day. 4 Active nystatin-triam cinolone (MYCOLOG II) ointment 2x/day to affected area 30 g 5 Active fluconazole (DIFLUCAN) 150 mg tablet Take 1 tablet (150 mg total) by mouth every 3 (three) days for 2 doses. If symptoms not resolved in 3 days, take second dose 2 tablet 5 05/23/19 25 Active Problems Problem Noted Date Diagnosed Date Methadone maintenance therapy patient 07/21/2019 Overview (01/14/2024): 07/21/2019 methadone 45-50mg [employer] Depression 08/29/2011 Lumbago 08/05/2011 Post laminectomy syndrome 08/05/2011 Radiculitis, lumbosacral 08/05/2011 Encounters Date Type Department Care Team Description 05/19/2024 3:15 PM EST Office Visit Obstetrics and Gynecology - [address] [address] Lolis Clement CNM Vulvar itching (Primary Dx); [...] on file Sexual Orientation Not on file Obstetrics History Last Filed [...] Health Maintenance Due Date Last Done Comments Hepatitis B Vaccines (1 of 3 - 19+ 3-dose series) 2012 Pneumococcal Vaccine: Pediatrics (0 to 5 Years) and At-Risk Patients (6 to 64 Years) (1 of 2 - PCV) 2012 Cholesterol Screening (Lipid Panel) 03/30/2022 11/18/2011 [...] patient's age to complete this topic Meningococcal B Vacine Aged Out No lo nger eligible based on patient's age to complete [...] CARE TEST ENTER/ED IT ORDERABLES Final Result * Pap smear (07/02/2022) 07/02/2022 Narrative HISTORICAL TESTING LAB RESULTING AGENCY - 07/14/2022 6:25 AM EDT [id number] THINPREP PAP, IMAGED: NEGATIVE FOR SQUAMOUS INTRAEPITHELIAL LESION AND MALIGNANCY . DERECK KERN , ORION(ASCP) (CASE ELECTRONICALLY SIGNED 07 12 2022) ADEQUACY: SATISFACTORY ENDOCERVICAL/TRANSFORMATION ZONE COMPONENT PRESENT. SOURCE: THINPREP PAP HPV IF ASCUS, CERVICAL, IMAGED CLINICAL INFORMATION: HPV IF DIAGNOSIS OF ASCUS. PAP HX NEGATIVE, [[id number]] Result [facility] Ursula Steel CN LAB CYTOLOGY ORDERABLES Final R esult HISTORICAL TESTING LAB RESULTING AGENCY * (ABNORMAL) Lipid panel (11/18/2011) LDL/HDL Ratio 4 0 - 4 Triglycerides 243(A) 0 - 150 mg/dL Cholesterol 193 0 - 200 mg/dL HDL 52 >=40 mg/dL LDL Cholesterol 93(A) 0 - 10 mg/dL Blood Venous blood specimen / Unknown Result [facility] Historical Provider LAB BLOOD ORDERABLES Emily l Result * HIV Screening (08/08/2011) HIV Screening Abstracted Historical Provider HEALTH MAINTENANCE Final Result * Hepatitis C Screening (08/08/2011) Hepatitis C Screening Abstracted Historical Provider HEALTH MAINTENANCE Final Result from Last 3 Months or Most Recently Relevant to Health Maintenance Insurance [facility] MEDIC[facility] Member Subscriber Plan / Payer (Ef fective 2023-Present) Name:Kalyn Weathers Relation to Subscriber:Self Name:Kalyn Weathers Payer ID:[id number] Group ID:[id number] Type:Not on file Address: [facility] [address] Care Teams Restaurant Crew Member Relationship Specialty Start Date End Date Vicki Miller MD [address] [place] [address] , [address] [facility] Physician Associ D/B/A: [facility] [place] PCP - General Internal Medicine 06/13/14
== END 2024-06-15 10:33 | disposition home or self-care (01) ==
LOC: HO.HBST 09:06
PROVIDERS: PCP Pediatrics; Visit Provider Counselor Mental Health
DX: G47.00 Insomnia, unspecified (principal); F31.9 Bipolar disorder, unspecified; F41.1 Generalized anxiety disorder
CPT/HCPCS: 90791

== ENCOUNTER → 2024-06-15 09:06 | Outpatient (BNVA) | payer OTHER, SELFPAY | PROVIDERS: PCP Pediatrics; Visit Provider Counselor Mental Health ==

== ENCOUNTER 2024-06-22 11:27 | Outpatient (REF) | payer OTHER, SELFPAY ==
--- NOTE | ~2024-06-22 | US_ITS ---
EXAMINATION: US ABDOMEN COMPLETE WITH LIVER ELASTOGRAPHY HISTORY: E66.01 - Morbid (severe) obesity due to excess calories TECHNIQUE: Real-time grayscale ultrasound imaging of the abdomen was performed and images were reviewed. COMPARISON: There are no prior studies for comparison. FINDINGS: Liver: The right lobe of the liver measures 18.1 cm in size. The left lobe of the liver measures 12.0 cm in size. The liver demonstrates increased echotexture, consistent with steatosis. There is focal fatty sparing adjacent to the gallbladder. No focal mass or intrahepatic biliary ductal dilatation is identified. There is normal hepatopedal flow in the portal vein. Ultrasound elastography of the liver was performed with 10 separate measurements of the liver parenchyma with the patient in the supine position. Measurements were obtained approximately 2 cm below Lucas's capsule and perpendicular to the capsule. Images are of satisfactory quality. The median shear wave velocity is 1.88 m/s. The interquartile range/median (IQR/median) is 0.14. Gallbladder and biliary tree: The gallbladder is unremarkable, without evidence of calculi, wall thickening, or pericholecystic fluid. There is no sonographic Dong sign. The common bile duct is normal in caliber measuring 2 mm. Kidneys: The right kidney measures 12.8 cm in length. The left kidney measures 11.9 cm in length. The kidneys are unremarkable, without evidence of masses, hydronephrosis, or calculi. Pancreas: The pancreatic head, neck, and body are unremarkable. The pancreatic tail is obscured by bowel gas. Spleen: The spleen is enlarged, measuring 14.9 cm in length. Abdominal aorta and inferior vena cava: The visualized portions of the abdominal aorta and inferior vena cava are normal in caliber. There is no free fluid in the abdomen. US/US abdomen comp w elastography IMPRESSION: Hepatosplenomegaly and hepatic steatosis. The median shear wave velocity is 1.88 m/s, corresponding to a median liver stiffness of 10.75 kPa. The IQR/median value is 0.14. This is indicative of a quality data set. Findings are indicative of a high elastography value suggestive of compensated advanced chronic liver disease. REFERENCE: Society of Radiologists in Ultrasound Liver Stiffness Thresholds (2020): LIVER STIFFNESS THRESHOLDS: *Shear wave velocity less than 1.3 m/s (Liver Stiffness equal or less than 5 kPa): High probability of being normal. *Shear wave velocity less than 1.7 m/s (Liver Stiffness less than 9 kPa): In the absence of other known clinical signs, rules out compensated advanced chronic liver disease. *Shear wave velocity between 1.7-2.1 m/s (Liver Stiffness 9-13 kPa): Suggestive of compensated advanced chronic liver disease but need further test for confirmation. *Shear wave velocity between 2.1-2.4 m/s (Liver Stiffness 13-17 kPa): Rules in compensated advanced chronic liver disease. *Shear wave velocity greater than 2.4 m/s (Liver Stiffness over 17 kPa): Suggestive of clinically significant portal hypertension. QUALITY OF DATA SET: *IQR/Median value equal or less than 0.15 implies a quality data set. *IQR/Median value over 0.15 implies a poor quality data set. SIGNIFICANT CHANGE FROM PRIOR EXAM: Significant change if liver stiffness measurement is 10% or greater from prior exam. OTHER CONSIDERATIONS: The stage of liver fibrosis may be overestimated in the setting of acute hepatitis, liver inflammation, elevated liver function tests, hepatic vascular congestion, obstructive cholestasis, non-fasting state, and infiltrative diseases such as amyloidosis and lymphoma. In some patients with NAFLD, the liver stiffness thresholds for compensated advanced chronic liver disease may be lower. In causes other than viral hepatitis and NAFLD, liver stiffness thresholds are not well established. Electronically signed by: Pradeep Watters MD 06/24/2024 08:04 AM [facility]
--- OUTSIDE RECORDS SUMMARY | 2024-06-22 13:53 | XMS_ITS | Clinical Summary ---
Author Organization [address] Address [address] [place] [address] [place] [address] Phone Care Team Providers Care Latex Dipper Name Role Phone Vicki Miller MD Primary Care Provider [phone] Allergies Active Allergy Reactions Criticality Noted Date [...] EST Office Visit Obstetrics and Gynecology - [address] [id number] Lolis Clement CNM Vulvar itching [...] RESULTING AGENCY - 07/14/2022 6:25 AM EDT [id number] THINPREP PAP, IMAGED: NEGATIVE FOR SQUAMOUS INTRAEPITHELIAL LESION AND MALIGNANCY . DERECK KERN , ORION(ASCP) (CASE ELECTRONICALLY SIGNED 07 12 2022) ADEQUACY: SATISFACTORY ENDOCERVICAL/TRANSFORMATION ZONE COMPONENT PRESENT. SOURCE: THINPREP PAP HPV IF ASCUS, CERVICAL, IMAGED CLINICAL INFORMATION: HPV IF DIAGNOSIS OF ASCUS. PAP HX NEGATIVE, [Z01.419] Result [facility] Ursula Steel CN LAB CYTOLOGY ORDERABLES Final R esult HISTORICAL TESTING LAB RESULTING AGENCY * (ABNORMAL) Lipid panel (11/18/2011) LDL/HDL Ratio 4 0 - 4 Triglycerides 243(A) 0 - 150 mg/dL Cholesterol 193 0 - 200 mg/dL HDL 52 >=40 mg/dL LDL Cholesterol 93(A) 0 - 10 mg/dL Blood Venous blood specimen / Unknown Result [facility] Historical Provider LAB BLOOD ORDERABLES Emily l Result * HIV Screening (08/08/2011) HIV Screening Abstracted Historical Provider HEALTH MAINTENANCE Final Result * Hepatitis C Screening (08/08/2011) Hepatitis C Screening Abstracted Historical Provider HEALTH MAINTENANCE Final Result from Last 3 Months or Most Recently Relevant to Health Maintenance Insurance [facility] [employer] Member Subscriber Plan / Payer (Ef fective 2023-Present) Name:Kalyn Weathers Relation to Subscriber:Self Name:Kalyn Weathers Payer ID:[id number] Group ID:[id number] Type:Not on file Address: [facility] [address] [address] Care Teams Latex Dipper Relationship Specialty Start Date End Date Vicki Miller MD [address] [place] [address] , [address] [facility] FERMIN Diallo PCP - General Internal Medicine 06/13/14
== END 2024-06-22 11:28 | disposition home or self-care (01) ==
LOC: HO.US 11:27
PROVIDERS: PCP Pediatrics; Visit Provider Surgery
DX: E66.01 Morbid (severe) obesity due to excess calories (principal)
CPT/HCPCS: 76700; 76981

== ENCOUNTER → 2024-06-22 11:28 | Outpatient (BNV) | payer OTHER, SELFPAY | PROVIDERS: PCP Pediatrics; Visit Provider Radiology Diagnostic Radiology | DX: K76.0 Fatty (change of) liver, not elsewhere classified (principal); R16.2 Hepatomegaly with splenomegaly, not elsewhere classified | CPT/HCPCS: 76700 ==

== ENCOUNTER 2024-07-04 08:16 | Outpatient (AMB) | payer OTHER, SELFPAY ==
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
--- OUTSIDE RECORDS SUMMARY | 2024-07-04 08:25 | XMS_ITS | Clinical Summary ---
Author Organization [address] Address [address] [place] [address] [place] [address] Phone Care Team Providers Care Front Office Supervisor Name Role Phone Vicki Miller MD Primary Care Provider [phone] Allergies Active Allergy Reactions Criticality Noted Date Comments Acetaminophen Headache,Nausea And Vomiting 08/08/2011 Fentanyl 09/05/2011 Nausea,vomiting Sumatriptan Succinate 02/13/2011 Cough blood and chest hurts Medications levothyroxine sodium (LEVOTHYROXINE ORAL) Take by mouth. Activ e OMEPRAZOLE ORAL Take 20 mg by mouth. 2 Active ARIPiprazole (ABILIFY) 15 mg tablet Take 1 Tablet by mouth daily. Active clotrimazole-be tamethasone (LOTRISONE) 1-0.05 % cream Apply locally BID x 5 days 4 Active drospirenone-et hinyl estradioL (GIANVI,LORYNA, ANGI) 3-0.02 mg per tablet Take 1 Tablet by mouth daily for 360 days. 4 11/06/19 25 Active FLUoxetine (PROzac) 10 mg capsule TAKE 1 CAPSULE BY MOUTH EVERY DAY 2 Active melatonin-pyrid oxine HCl, B6, 10-10 mg tablet, IR and ER, biphasic Daily at bedtime, 0 Refills, Maintenance, 07/19/21 11:54:00 EDT, Partial fill upon patient request if the prescription is for a schedule II opioid drug. 2 Active methadone (DOLOPHINE) 10 mg/5 mL solution Take by mouth. 0 Active minocycline (MINOCIN,DYNACI N) 100 mg capsule TAKE 1 CAPSULE BY MOUTH 2 TIMES DAILY WITH FOOD-PROTECT SKIN FROM SUN 2 Active buPROPion (ZYBAN) 150 mg 12 hr tablet Take 1 tablet (150 mg total) by mouth 1 (one) time each day. 4 Active nystatin-triamc inolone (MYCOLOG II) ointment 2x/day to affected area 30 g 5 Active Active Problems Problem Noted Date Diagnosed Date Methadone maintenance therapy patient 07/21/2019 Overview (01/14/2024): 07/21/2019 methadone 45-50mg [facility] Depression 08/29/2011 Lumbago 08/05/2011 Post laminectomy syndrome 08/05/2011 Radiculitis, lumbosacral 08/05/2011 Encounters Date Type Department Care Team Description 05/19/2024 3:15 PM EST Office Visit Obstetrics and Gynecology [address] [phone] Lolis Clement CNM [place] itching [...] DX:Asthma Bipolar disorder (CMS/HCC) DX:Bi polar disorder ([facility]) Hypothyroidism DX:Hypothyroidis m Substance abuse (CMS/HCC) DX:Sub stance abuse ([facility]) Family History Medical History Relation Name Comments [...] Lolis Clement CNM POINT OF CARE TEST ENTER/ED IT ORDERABLES Final Result * Pap smear (07/02/2022) 07/02/2022 Narrative HISTORICAL TESTING LAB RESULTING AGENCY - 07/14/2022 6:25 AM EDT [id number] THINPREP PAP, IMAGED: NEGATIVE FOR SQUAMOUS INTRAEPITHELIAL LESION AND MALIGNANCY . ORION CELESTIN(ASCP) (CASE ELECTRONICALLY SIGNED 07 12 2022) ADEQUACY: SATISFACTORY ENDOCERVICAL/TRANSFORMATION ZONE COMPONENT PRESENT. SOURCE: THINPREP PAP HPV IF ASCUS, CERVICAL, IMAGED CLINICAL INFORMATION: HPV IF DIAGNOSIS OF ASCUS. PAP HX NEGATIVE, [Z01.419] Ursula Steel CNM LAB CYTOLOGY ORDERABLES Final R esult HISTORICAL TESTING LAB RESULTING AGENCY * (ABNORMAL) Lipid panel (11/18/2011) Pathologist [facility] [place] LDL/HDL Ratio 4 0 - 4 Triglycerides 243(A) 0 - 150 mg/dL Cholesterol 193 0 - 200 mg/dL HDL 52 >=40 mg/dL LDL Cholesterol 93(A) 0 - 10 mg/dL Blood Venous blood specimen / Unknown Historical Provider LAB BLOOD ORDERABLES Emily l Result * HIV Screening (08/08/2011) Pathologist [facility] [place] HIV Screening Abstracted Historical Provider HEALTH MAINTENANCE Final Result * Hepatitis C Screening (08/08/2011) Pathologist [facility] Hepatitis C Screening Abstracted Historical Provider HEALTH MAINTENANCE Final Result from Last 3 Months or Most Recently Relevant to Health Maintenance Insurance [employer] MEDICARE Member Subscriber Plan / Payer (Ef fective 2023-Present) Name:Kalyn Weathers Relation to Subscriber:Self Name:Kalyn Weathers Payer ID:[id number] Group ID:[id number] Type:Not on file Address: [place] [address] [address] [phone] Care Teams Front Office Supervisor Relationship Specialty Start Date End Date Vicki Miller MD [address] [place] [address] , [facility] D/B/A: [facility] FERMIN Diallo PCP - General Internal Medicine 06/13/14
== END 2024-07-04 09:32 | disposition home or self-care (01) ==
LOC: HO.HBST 08:16
PROVIDERS: PCP Pediatrics; Visit Provider Counselor Mental Health
DX: F31.9 Bipolar disorder, unspecified (principal); F41.1 Generalized anxiety disorder; G47.00 Insomnia, unspecified
CPT/HCPCS: 90837

== ENCOUNTER → 2024-07-04 08:16 | Outpatient (BNVA) | payer OTHER, SELFPAY | PROVIDERS: PCP Pediatrics; Visit Provider Counselor Mental Health ==

== ENCOUNTER 2024-08-12 13:07 | Outpatient (AMB) | payer OTHER, SELFPAY ==
--- NOTE | 2024-08-12 12:29 | MHC.WMTHER ---
Intake Intake Visit Reasons: VIDEO BH F/U Allergies fentanyl Allergy (Unknown, Verified 05/18/24 15:51) rash sumatriptan [Imitrex] Allergy (Unknown, Verified 05/18/24 15:51) chest pain PFSH Medical History (Updated 06/23/24 @ 14:36 by Michael Fuentes MD) Insomnia Back pain Depression Bipolar 1 disorder Morbid obesity Surgical History (Updated 05/18/24 @ 15:53 by Sophie Bingham CMA) Hx of tonsillectomy Hx of discectomy Family History (Updated 05/18/24 @ 15:54 by Sophie Bingham CMA) Mother Depression Anxiety Father No problems noted. Social History (Updated 05/18/24 @ 15:54 by Sophie Bingham CMA) Alcohol intake: current Alcohol intake frequency: a few times a month Patient Tobacco Use Status: Former Tobacco user Behavioral Health Assessment Weight Management Therapy Therapy Notes Details Subjective: Patient reports feeling generally well with stable mental health. Currently on a 40 mg dose of Methadone and continues to attend scheduled behavioral health treatments. PT shared some concerns with low sugar levels, advised to inform Dr. Osei for further guidance. Objective: Patient presents for a follow-up behavioral health appointment via Telehealth. . Discussed current functioning, program engagement, and challenges. Provided support for managing ambivalence about surgery and discussed common post-surgical psychological responses. Reinforced patient autonomy and emphasized the role of internal motivation versus external pressure. Focused on cultivating a growth-oriented mindset by exploring cognitive reframing techniques and the importance of self-compassion. Introduced strategies to build discipline, including establishing consistent routines, setting achievable goals, and tracking progress. Emphasized the significance of psychological preparation in enhancing surgical outcomes, highlighting the impact of mindset on recovery and long-term success. Assessment/Response: Mental status: WNL Risk reported/identified:None. Food/Weight/Diet Expectations of change The initial goal is to lose 10% of your weight before surgery, about 25 Lbs. The ultimate weight goal is 225 lbs before surgery. The initial weight was 249 Lbs, per the system's note. However, the client reports that it was 254 lbs on her records from the [employer] scale. Weight as of 07/03/2024: 246 Lbs Weight as of 08/07/2024: 238 Lbs Target: 180 Lbs and go from there. PT is implementing the following: Current meal plan: using the [employer] website. Using a combination of shakes and 1 meal Exercise plan: She has been walking. Now she's starting the stationary bike today. Scale: Yes. Communication with provider: Fridays. Assessment & Plan Assessment & Plan (1) Insomnia: Code(s): G47.00 - Insomnia, unspecified (2) Bipolar disorder, unspecified: Code(s): F31.9 - Bipolar disorder, unspecified (3) Generalized anxiety disorder: Code(s): F41.1 - Generalized anxiety disorder Plan Patient remains cleared from a behavioral health standpoint. A follow-up appointment will be scheduled 1?3 weeks post-surgery to monitor psychological adjustment and provide ongoing support. Telehealth Telehealth Telehealth Platform: [facility] Location of provider rendering services: other Location of patient: other Patient Identification confirmed using: Name, : Yes Telehealth method: voice only Patient verbally consented to treatment: Yes Patient verbally consented to billing insurance company: Yes Patient informed of any privacy concerns related to visit: Yes Minutes spent on Phone/Video with Pt.: 30 Coding Level of Care Code Established Pt Tele Psytx 30 mins (76115) Patient Type Established Diagnoses Insomnia G47.00 Bipolar disorder, unspecified F31.9 Generalized anxiety disorder F41.1 Time Spent (min) 30
--- OUTSIDE RECORDS SUMMARY | 2024-08-12 13:51 | XMS_ITS | Clinical Summary ---
Author Organization [address] Address [address] [place] [address] [place] [address] Phone Care Team Providers Care Airborne Weapons Technical Manager Name Role Phone Vicki Miller MD Primary Care Provider [phone] Allergies Active Allergy Reactions Criticality Noted Date [...] Diagnosed Date Methadone maintenance therap y patient ([facility] V24, [facility] V28) 07/21/2019 Overview (01/14/2024): 07/21/2019 methadone 45-50mg [employer] Depression 08/29/2011 Lumbago 08/05/2011 Post laminectomy syndrome 08/05/2011 Radiculitis, lumbosacral 08/05/2011 Encounters Date Type Department Care Team Description 05/19/2024 3:15 PM EST Office Visit Obstetrics and Gynecology [address] [phone] Lolis Clement CNM Vulvar itching (Primary Dx); Vaginal discharge from Last 3 Months Immunizations Name Administration Dates Next Due Influenza trivalent, with pr eservative (Fluzone; Afluria) 6mo and older 01/07/2012 Surgical History Surgery Date Site/Laterality Comments BACK SURGERY PROCEDURE: HISTORICAL BACK SURGERY; COMMENT: 04/2011 Medical History Medical History Date Comments Deliberate self-cutting DX:Delib erate self-cutting Asthma DX:Asthma Bipolar disorder ([facility] V24, [facility] V28) DX:Bipolar disorder (HCC) Hypothyroidism DX:Hypothyroidis m Substance abuse ([facility] V24, [facility] V28) DX:Substance abuse (HCC) Family History Medical [...] RESULTING AGENCY - 07/14/2022 6:25 AM EDT [id number] THINPREP PAP, IMAGED: NEGATIVE FOR SQUAMOUS INTRAEPITHELIAL [...] RESULTING AGENCY * (ABNORMAL) Lipid panel (11/18/2011) [facility] LDL/HDL Ratio 4 0 - 4 Triglycerides 243(A) 0 - 150 mg/dL Cholesterol 193 0 - 200 mg/dL HDL 52 >=40 mg/dL LDL Cholesterol 93(A) 0 - 10 mg/dL Blood Venous blood specimen / Unknown Result [facility] Historical Provider LAB BLOOD ORDERABLES Emily l Result * HIV Screening (08/08/2011) [facility] HIV Screening Abstracted Historical Provider HEALTH MAINTENANCE Final Result * Hepatitis C Screening (08/08/2011) [facility] Hepatitis C Screening Abstracted Historical Provider HEALTH MAINTENANCE Final Result from Last 3 Months or Most Recently Relevant to Health Maintenance Insurance [facility] MEDICARE Member Subscriber Plan / Payer (Ef fective 2023-Present) Name:Kalyn Weathers Relation to Subscriber:Self Name:Kalyn Weathers Payer ID:[id number] Group ID:[id number] Type:Not on file Address: [place] [address] [place] [id number] Care Teams Airborne Weapons Technical Manager Relationship Specialty Start Date End Date Vicki Miller MD [address] [place] [address] , [address] [facility] Physician Associ D/B/A: [facility] FERMIN Diallo PCP - General Internal Medicine 06/13/14
== END 2024-08-12 13:37 | disposition home or self-care (01) ==
LOC: HO.HBST 13:07
PROVIDERS: PCP Pediatrics; Visit Provider Counselor Mental Health
DX: G47.00 Insomnia, unspecified (principal); F31.9 Bipolar disorder, unspecified; F41.1 Generalized anxiety disorder
CPT/HCPCS: 90832

== ENCOUNTER 2024-08-15 08:04 | Outpatient (REF) | payer OTHER, SELFPAY ==
--- NOTE | ~2024-08-15 | FL_ITS ---
EXAMINATION: XR FLUOROSCOPY UPPER GI WITH AIR CLINICAL INFORMATION: Moderate to severe obesity due to excess calories. COMPARISON: None available. TECHNIQUE: Routine upper GI air contrast study was performed in upright and lying position. FINDINGS: Following oral administration of thick barium and effervescent granules there is there is normal propagation of bolus from the oral cavity through the pharynx, esophagus into stomach without any evidence of obstruction, narrowing or stricture. On placing patient in supine and prone lying the course, caliber and peristalsis of the stomach is normal. On placing patient in supine and prone lying the course, caliber and peristalsis of the stomach is normal. There is a large gastroesophageal reflux without hiatal hernia. The mucosal pattern of the esophagus, stomach or duodenum is normal. FLUOROSCOPY TIME: 1 minute 20 seconds DOSE AREA PRODUCT: 1673 uGy-m2 (microgray-meter squared) FL/FL upper GI w air IMPRESSION: Large gastroesophageal reflux without hiatal hernia. Electronically signed by: Ty Martin MD 08/15/2024 02:33 PM EDT
--- OUTSIDE RECORDS SUMMARY | 2024-08-15 08:16 | XMS_ITS | Clinical Summary ---
Author Organization [address] Address [address] [place] [address] [place] [address] Phone Care Team Providers Care Care Aid Name Role Phone Vicki Miller MD Primary Care Provider [phone] Allergies Active Allergy Reactions Criticality Noted Date [...] Diagnosed Date Methadone maintenance therap y patient ([facility] V24, [facility] V28) 07/21/2019 Overview (01/14/2024): 07/21/2019 methadone 45-50mg [employer] Depression 08/29/2011 Lumbago 08/05/2011 Post laminectomy syndrome 08/05/2011 Radiculitis, lumbosacral 08/05/2011 Encounters Date Type Department Care Team Description 05/19/2024 3:15 PM EST Office Visit Obstetrics and Gynecology [address] [phone] Lolis Clement CNM Vulvar itching (Primary Dx); Vaginal discharge from Last 3 Months Immunizations Name Administration Dates Next Due Influenza trivalent, with pr eservative (Fluzone; Afluria) 6mo and older 01/07/2012 Surgical History Surgery Date Site/Laterality Comments BACK SURGERY PROCEDURE: HISTORICAL BACK SURGERY; COMMENT: 04/2011 Medical History Medical History Date Comments Deliberate self-cutting DX:Delib erate self-cutting Asthma DX:Asthma Bipolar disorder ([facility] V24, [facility] V28) DX:Bipolar disorder (HCC) Hypothyroidism DX:Hypothyroidis m Substance abuse ([facility] V24, [facility] V28) DX:Substance abuse (HCC) Family History Medical [...] Maintenance Due Date Last Done Comments Hepatitis A Vaccines (1 of 2 - Risk 2-dose series) 2012 Hepatitis B Vaccines (1 of 3 - [...] RESULTING AGENCY - 07/14/2022 6:25 AM EDT [id number] THINPREP PAP, IMAGED: NEGATIVE FOR SQUAMOUS INTRAEPITHELIAL [...] RESULTING AGENCY * (ABNORMAL) Lipid panel (11/18/2011) [facility] LDL/HDL Ratio 4 0 - 4 Triglycerides 243(A) 0 - 150 mg/dL Cholesterol 193 0 - 200 mg/dL HDL 52 >=40 mg/dL LDL Cholesterol 93(A) 0 - 10 mg/dL Blood Venous blood specimen / Unknown Result [facility] Historical Provider LAB BLOOD ORDERABLES Emily l Result * HIV Screening (08/08/2011) [facility] HIV Screening Abstracted Historical Provider HEALTH MAINTENANCE Final Result * Hepatitis C Screening (08/08/2011) [facility] Hepatitis C Screening Abstracted Historical Provider HEALTH MAINTENANCE Final Result from Last 3 Months or Most Recently Relevant to Health Maintenance Insurance [facility] MEDICARE Member Subscriber Plan / Payer (Ef fective 2023-Present) Name:Kalyn Weathers Relation to Subscriber:Self Name:Kalyn Weathers Payer ID:[id number] Group ID:[id number] Type:Not on file Address: [place] [address] [place] [phone] Care Teams Care Aid Relationship Specialty Start Date End Date Vicki Miller MD [address] [place] [address] , [address] [facility] Physician Associ D/B/A: [facility] FERMIN Diallo PCP - General Internal Medicine 06/13/14
== END 2024-08-15 08:05 | disposition home or self-care (01) ==
LOC: HO.XRAY 08:04
PROVIDERS: PCP Pediatrics; Visit Provider Surgery
DX: E66.01 Morbid (severe) obesity due to excess calories (principal)
CPT/HCPCS: 74246

== ENCOUNTER → 2024-08-15 08:05 | Outpatient (BNV) | payer OTHER, SELFPAY | PROVIDERS: PCP Pediatrics; Visit Provider Radiology Diagnostic Radiology | DX: E66.09 Other obesity due to excess calories (principal) | CPT/HCPCS: 74246 ==

== ENCOUNTER 2024-08-17 09:11 | Day surgery (SDC) | payer OTHER, SELFPAY ==
--- OUTSIDE RECORDS SUMMARY | 2024-07-28 15:14 | XMS_ITS | Clinical Summary ---
Author Organization [address] Address [address] [place] [address] [place] [address] Phone Care Team Providers Care Wort Extractor Name Role Phone Vikci Miller MD Primary Care Provider [phone] Allergies Active Allergy Reactions Criticality Noted Date [...] Problem Noted Date Diagnosed Date Methadone maintenance therap y patient ([facility] [place], [facility] V28) 07/21/2019 Overview (01/14/2024): 07/21/2019 methadone 45-50mg [employer] Depression 08/29/2011 Lumbago 08/05/2011 Post laminectomy syndrome 08/05/2011 Radiculitis, lumbosacral 08/05/2011 Encounters Date Type Department Care Team Description 05/19/2024 3:15 PM EST Office Visit Obstetrics and Gynecology [address] [phone] Lolis Clement CNM Vulvar itching (Primary Dx); Vaginal discharge from Last 3 Months Immunizations Name Administration Dates Next Due Influenza trivalent, with pr eservative (Fluzone; Afluria) 6mo and older 01/07/2012 Surgical History Surgery Date Site/Laterality Comments BACK SURGERY PROCEDURE: HISTORICAL BACK SURGERY; COMMENT: 04/2011 Medical History Medical History Date Comments Deliberate self-cutting DX:Delib erate self-cutting Asthma DX:Asthma Bipolar disorder ([facility] [place], [facility] V28) DX:Bipolar disorder (HCC) Hypothyroidism DX:Hypothyroidis m Substance abuse ([facility]24, [facility] V28) DX:Substance abuse (HCC) Family History Medical History Relation [...] age to complete this topic Meningococcal B Vaccine Aged Out No l onger eligible based on patient's age to complete [...] RESULTING AGENCY - 07/14/2022 6:25 AM EDT [id number] THINPREP PAP, IMAGED: NEGATIVE FOR SQUAMOUS INTRAEPITHELIAL LESION AND MALIGNANCY . DERECK KERN , ORION(ASCP) (CASE ELECTRONICALLY SIGNED 07 12 2022) ADEQUACY: SATISFACTORY ENDOCERVICAL/TRANSFORMATION ZONE COMPONENT PRESENT. SOURCE: THINPREP PAP HPV IF ASCUS, CERVICAL, IMAGED CLINICAL INFORMATION: HPV IF DIAGNOSIS OF ASCUS. PAP HX NEGATIVE, [Z01.419] Ursula Steel CN LAB CYTOLOGY ORDERABLES Final R esult HISTORICAL TESTING LAB RESULTING AGENCY * (ABNORMAL) Lipid panel (11/18/2011) [facility] LDL/HDL Ratio 4 0 - 4 Triglycerides 243(A) 0 - 150 mg/dL Cholesterol 193 0 - 200 mg/dL HDL 52 >=40 mg/dL LDL Cholesterol 93(A) 0 - 10 mg/dL Blood Venous blood specimen / Unknown Result [facility] Historical Provider LAB BLOOD ORDERABLES Emily l Result * HIV Screening (08/08/2011) [facility] HIV Screening Abstracted Historical Provider HEALTH MAINTENANCE Final Result * Hepatitis C Screening (08/08/2011) [facility] Hepatitis C Screening Abstracted Historical Provider HEALTH MAINTENANCE Final Result from Last 3 Months or Most Recently Relevant to Health Maintenance Insurance [facility] MEDICARE Member Subscriber Plan / Payer (Ef fective 2023-Present) Name:Kalyn Weathers Relation to Subscriber:Self Name:Kalyn Weathers Payer ID:[id number] Group ID:[id number] Type:Not on file Address: [place] [address] [place] [phone] Care Teams Wort Extractor Relationship Specialty Start Date End Date Vicki Miller MD [address] [place] [address] , [address] [facility] Associ D/B/A: [facility] FERMIN Diallo PCP - General Internal Medicine 06/13/14
--- NOTE | 2024-08-16 10:12 | P.CONAN_ITS ---
Documented by User: Susana Rose NP 08/16/24 10:12 HPI - Anesthesia Eval Consult details Narrative: 29yo F for Upper Endoscopy Anesthesia Pre-Procedure Meds Is the patient on any of the following meds?: GLP1/DPP4 PMFSH Active Problems Active Problems: All Active Problems Non-insulin dependent type 2 diabetes mellitus (Acute) Insomnia (Acute) Back pain (Acute) Depression (Acute) Bipolar 1 disorder (Acute) Morbid obesity (Acute) Past Medical History Medical History (Updated 08/17/24 @ 09:36 by Kasey Kimball RN) Asthma Diabetes Insomnia Back pain Depression Bipolar 1 disorder Morbid obesity Family History Family History (Updated 05/18/24 @ 15:54 by Sophie Bingham CMA) Mother Depression Anxiety Father No problems noted. Surgical History Surgical History (Updated 08/17/24 @ 09:42 by Kasey Kimball RN) History of surgery History of surgery Hx of tonsillectomy Hx of discectomy Social History Social History (Updated 05/18/24 @ 15:54 by Sophie Bingham CMA) Alcohol intake: current Alcohol intake frequency: holidays/special occasions only Patient Tobacco Use Status: Former Tobacco user Use of substances other than those prescribed or required for medical reasons: No Are you DNR?: No Advance Directives: No Advance Directives Information Provided: Yes Meds Allergies Allergy/AdvReac Type Severity Reaction Status Date / Time fentanyl Allergy Unknown rash Verified 05/18/24 15:51 sumatriptan [Imitrex] Allergy Unknown chest pain Verified 05/18/24 15:51 acetaminophen [From Tylenol] AdvReac Mild Nausea Verified 08/17/24 09:30 Home Medications ?Medication ?Instructions ?Recorded ?Confirmed ?Last Taken ?Type aripiprazole 30 mg tablet (Abilify) 30 mg PO BEDTIME 05/18/24 08/17/24 Unknown History levothyroxine 50 mcg capsule 50 mcg PO DAILY 05/18/24 08/17/24 Unknown History zolpidem 5 mg tablet (Ambien) 5 mg PO BEDTIME 05/18/24 08/17/24 Unknown History duloxetine 60 mg capsule,delayed 60 mg PO DAILY 05/25/24 08/17/24 Unknown History release methadone 40 mg soluble tablet 40 mg PO DAILY 08/17/24 08/17/24 08/16/24 History Assessment and Plan Assessment Anesthesia Assessment: Chart Reviewed Documented by User: Gómez Barcenas MD 08/17/24 11:24 [facility] Past Medical History Medical History (Updated 08/17/24 @ 09:36 by Kasey Kimball RN) Asthma Diabetes Insomnia Back pain Depression Bipolar 1 disorder Morbid obesity Family History Family History (Updated 05/18/24 @ 15:54 by Sophie Bingham CMA) Mother Depression Anxiety Father No problems noted. Family history of problems with anesthesia: No Surgical History Surgical History (Updated 08/17/24 @ 09:42 by Kasey Kimball RN) History of surgery History of surgery Hx of tonsillectomy Hx of discectomy History of Problems with Anesthesia: No Social History Social History (Updated 05/18/24 @ 15:54 by Sophie Bingham CMA) Alcohol intake: current Alcohol intake frequency: holidays/special occasions only Patient Tobacco Use Status: Former Tobacco user Use of substances other than those prescribed or required for medical reasons: No Are you DNR?: No Advance Directives: No Advance Directives Information Provided: Yes Meds Allergies Allergy/AdvReac Type Severity Reaction Status Date / Time fentanyl Allergy Unknown rash Verified 05/18/24 15:51 sumatriptan [Imitrex] Allergy Unknown chest pain Verified 05/18/24 15:51 acetaminophen [From Tylenol] AdvReac Mild Nausea Verified 08/17/24 09:30 Home Medications ?Medication ?Instructions ?Recorded ?Confirmed ?Last Taken ?Type aripiprazole 30 mg tablet (Abilify) 30 mg PO BEDTIME 05/18/24 08/17/24 Unknown History levothyroxine 50 mcg capsule 50 mcg PO DAILY 05/18/24 08/17/24 Unknown History zolpidem 5 mg tablet (Ambien) 5 mg PO BEDTIME 05/18/24 08/17/24 Unknown History duloxetine 60 mg capsule,delayed 60 mg PO DAILY 05/25/24 08/17/24 Unknown His tory release methadone 40 mg soluble tablet 40 mg PO DAILY 08/17/24 08/17/24 08/16/24 History Exam Airway Mallampati Class: II TM Dist: >3cm Neck ROM: Full Assessment and Plan Assessment Anesthesia Assessment: Anesthesia Plan Discussed Final Anesthetic Review Family History of Problems with Anesthesia: No History of Problems with Anesthesia: No NPO: Yes ASA Class: III Final Preanesthetic Review: No Changes in Pt Med Stat, Meds/Allgs Chart Rev iewed, Consent Obtained/Reviewed and Anes Risks/Benef Reviewed Patient Risk: Intermediate Procedure Risk: Low Anesthetic Plan Anesthetic Plan: TIVA Disposition: Standard PACU
[2024-08-17 09:27] VITALS: BMI 38.7
[2024-08-17 09:35] LABS: UPreg QC Valid YES
[2024-08-17 09:36] LABS: Urine Pregnancy NEGATIVE (NEGATIVE)
[2024-08-17 09:45] VITALS: BP 121/65; PULSE 88; RESP 16; TEMP 36.8; O2SAT 98
[2024-08-17] MEDS: Lactated Ringers 1,000 ML 100 ML IVCONT (09:59)
--- NOTE | 2024-08-17 11:32 | MHC.SHP ---
Pre-Procedural Eval Section A - 24 Hr Update-Section A only Date of Service: 08/17/24 The patient is an INPATIENT: No The patient has been examined within 24 hours of the surgical procedure. The History & Physical has been completed within 30 days and I have reviewed it.: Yes Section B - Complete if H&P > 30 days Chief Complaint: Morbid (severe) obesity due to excess calories Relevant Family History (Specify if Yes): No Relevant Social History: None Present Medications: None Medical History: No relevant PMH History of Previous Operations: No relevant previous surgery Allergies: Allergies Allergy/AdvReac Type Severity Reaction Status Date / Time fentanyl Allergy Unknown rash Verified 05/18/24 15:51 sumatriptan [Imitrex] Allergy Unknown chest pain Verified 05/18/24 15:51 acetaminophen [From Tylenol] AdvReac Mild Nausea Verified 08/17/24 09:30 Review of Systems Sugical H&P ROS: Negative: Constitution, Cardiovascular, Respiratory, Neurological, Psychiatric, Hem-Onc, Allergic/Immunologic, Gastrointestinal, Genitourinary, Musculoskeletal, Integumentary, Endocrine and Eyes/Ears/Nose/Throat Exam Surgical H&P Exam: Normal: HEENT, Normal: Heart, Normal: Lungs, Normal: Extremities, Normal: Abdomen, Normal: Skin and Normal: Neurological Plan Diagnosis/Plan: Unchanged (EGD to assess the stomach's anatomy. Risks of bleeding and perforation were discussed with the patient and she is in agreement with the plan.) I have reviewed the history and physical and performed a pertinent physical examination on my patient. No changes have occurred unless specified. Time Spent With Patient Time: Total time managing care of this patient today ____ minutes.
--- NOTE | 2024-08-17 11:58 | P.BOP_ITS ---
Brief Operative Note Date of Service: 08/17/24 Pre-op diagnosis: Morbid obesity Post-op diagnosis: same Procedure: PROCEDURE DATE: 08/17/2024 PREOPERATIVE DIAGNOSIS: Morbid obesity POSTOPERATIVE DIAGNOSIS: ?Same as above. 1) gastritis PROCEDURE: Fvjocseg-[id number] with biopsies Surgeon: ?Mir Fuentes M.D.. Ph.D. Event Security Officer: None ? Anesthesia: IV sedation Estimated blood loss: ?Minimal FINDINGS AND PROCEDURE: ? OPERATIVE INDICATIONS: ?The patient is a 29 year old female known to me who is interested in bariatric surgery. Based on this information I recommended an upper endoscopy to evaluate the stomach's anatomy. Risks and complications of the surgery were discussed with the patient in advance particularly the possibility of perforation or bleeding that may require surgical intervention. The patient understood the risks and was in agreement with the plan. ? PROCEDURE: After informed consent was obtained by the patient, the patient was ?transferred to the Operating Room and was placed in the supine position.? After successful induction of IV sedation, a mouth block was inserted and the patient was placed in the left lateral decubitus position. An upper endoscopy was performed next, the oropharynx and esophagus appeared within the normal limits. There was no hiatal hernia. The z-line was smooth. Two biopsies were obtained from the distal esophagus 2-3 cm proximal to the GE junction and two additional biopsies from the GE junction. The stomach was entered and it appeared to be of normal size. There was gastritis at stomach's mid-body and antrum. There was no stricture or ulcer. A biopsy was obtained from the gastric fundus, mid-gastric body and the antrum. No significant bleeding was noted from any of the biopsy sites. The scope was then advanced into the duodenum which appeared to be normal as well. Retroflexion of the scope confirmed a normal GE junction. At that point the duodenum ?and the stomach were decompressed and the scope was withdrawn from the patient's mouth. The patient extubated and was transferred in stable condition to the Recovery Room for further care. I was present and performed all steps of the procedure. There were no residents to assist with this case. Mir Fuentes M.D., Ph.D. Surgeon: Michael Fuentes MD Anesthesia: MAC Was an Event Security Officer used for this Procedure?: No Estimated blood loss (mL): 0 IV fluids (mL): 400 Urine output (mL): 0 (No Menendez to record output) Pathology: other (1) antrum x1, 2) fundus x1, 3) GE junction x2, 4) distal esophagus x2, 5) mid gastric body x1) Condition: stable Disposition: PACU
[2024-08-17 12:04] VITALS: BP 90/53; PULSE 94; RESP 16; TEMP 36.8; O2SAT 95
[2024-08-17 12:19] VITALS: BP 115/59; PULSE 90; RESP 20; TEMP 36.6; O2SAT 98
== END 2024-08-17 12:52 | disposition home or self-care (01) ==
PROVIDERS: Nurse Practitioner; PCP Pediatrics; Visit Provider Surgery
PROC: 0DJ08ZZ Inspection of Upper Intestinal Tract, Via Natural or Artificial Opening Endoscopic (ICD-10-PCS; CPT 43235; principal; 2024-08-17 11:40)
DX: E66.01 Morbid (severe) obesity due to excess calories (principal); Z68.41 Body mass index [BMI] 40.0-44.9, adult; E11.9 Type 2 diabetes mellitus without complications; K29.50 Unspecified chronic gastritis without bleeding; M54.9 Dorsalgia, unspecified; F31.9 Bipolar disorder, unspecified; G47.00 Insomnia, unspecified; Z79.899 Other long term (current) drug therapy; Z79.85 Long-term (current) use of injectable non-insulin antidiabetic drugs; Z88.5 Allergy status to narcotic agent; Z88.8 Allergy status to other drugs, medicaments and biological substances; Z87.891 Personal history of nicotine dependence
CPT/HCPCS: 43239; 81025; 88305; 88313; 88342; J2003; J2704

== ENCOUNTER → 2024-08-17 09:11 | Outpatient (BNV) | payer OTHER, SELFPAY | PROVIDERS: PCP Pediatrics; Visit Provider Surgery | DX: K29.70 Gastritis, unspecified, without bleeding (principal) | CPT/HCPCS: 43239 ==

== ENCOUNTER 2024-09-21 08:21 | Outpatient (AMB) | payer OTHER, SELFPAY ==
--- OUTSIDE RECORDS SUMMARY | 2024-09-21 08:26 | XMS_ITS | Clinical Summary ---
Author Organization [address] Address [address] [place] [address] [place] [address] Phone Care Team Providers Care Nurse Office Name Role Phone Vicki Miller MD Primary Care Provider [phone] Allergies Active Allergy Reactions Criticality Noted Date [...] 5 days 4 Active drospirenone-et hinyl estradioL (GIANVI,BALWINDERYNA, ANGI) 3-0.02 mg per tablet Take 1 [...] Diagnosed Date [place]adone maintenance therap [place] [place] [facility] 07/21/2019 Overview (01/14/2024): 07/21/2019 methadone 45-50mg [employer] Depression 08/29/2011 Lumbago 08/05/2011 Post laminectomy syndrome 08/05/2011 Radiculitis, lumbosacral 08/05/2011 Immunizations Name Administration Dates Next Due Influenza trivalent, with pr eservative (Fluzone; Afluria) 6mo and older 01/07/2012 Surgical History Surgery Date Site/Laterality Comments BACK SURGERY PROCEDURE: HISTORICAL BACK SURGERY; COMMENT: 04/2011 Medical History Medical History Date Comments Deliberate self-cutting DX:Delib erate self-cutting Asthma DX:Asthma B[place] disorder [place] [place] [facility] DX:Bipolar disorder ([facility]) Hypothyroidism DX:Hypothyroidis m Substance abuse [place] [place] [facility] [place] DX:Substance abuse ([facility]) Family History Medical [...] Procedure Name Priority Date/Time Associated Diagnosis Comments PAP SMEAR Routine 07/02/2022 LIPID PANEL Routine 11/18/2011 HEPATITIS C SCREENING Routine 08/08/2011 HIV SCREENING Routine 08/08/2011 from Last 3 Months or Most Recently Relevant to Health Maintenance Results * Pap smear (07/02/2022) 07/02/2022 Narrative HISTORICAL TESTING LAB RESULTING AGENCY - 07/14/2022 6:25 AM EDT [id number] THINPREP PAP, IMAGED: NEGATIVE FOR SQUAMOUS INTRAEPITHELIAL [...] Result * Hepatitis C Screening (08/08/2011) Pathologist [facility] Hepatitis C Screening Abstracted us Historical Provider HEALTH MAINTENANCE Final Result from Last 3 Months or Most Recently Relevant to Health Maintenance Insurance [employer] MEDICARE Member Subscriber Plan / Payer (Ef fective 2023-Present) Name:Deanne Weathersica Relation to Subscriber:Self Name:Weathers Kalyn Payer ID:[id number] Group ID:[id number] Type:Not on file Address: [place] [address] [address] [address] Care Teams Nurse Office Relationship Specialty Start Date End Date Vicki Miller MD [address] [place] [address] , [address] [facility] FERMIN Diallo PCP - General Internal Medicine 06/13/14
--- NOTE | 2024-09-21 11:39 | MHC.OFFVISWM ---
VS Expanded 09/21/24 11:49 Height 5 ft 6 in Weight 234 lb 2 oz BMI 37.8 Body Fat % 48.2 Body Fat Mass 112.8 Fat Free Mass 121.2 Visceral Fat Rating 19 Body Water % 35.5 Body Water Mass 83.1 Basal Metabolic Rate/Score 1,558 Intake Visit Reasons: TV Pre Op LSG 10/04/24 Allergies fentanyl Allergy (Unknown, Verified 05/18/24 15:51) rash sumatriptan [Imitrex] Allergy (Unknown, Verified 09/21/24 11:41) chest pain Medication List - Last Reconciled 09/21/24 by Michael Fuentes MD aripiprazole (Abilify) 30 mg PO BEDTIME cholecalciferol (vitamin D3) 125 mcg PO DAILY duloxetine 60 mg PO DAILY levothyroxine 50 mcg PO DAILY methadone 40 mg PO DAILY ondansetron 4 mg PO Q12H pantoprazole 40 mg PO DAILY polyethylene glycol 3350 17 grams PO DAILY semaglutide (Ozempic) 2 mg (0.75 mL) subcut QWEEK sucralfate 10 mL PO BID zolpidem (Ambien) 5 mg PO BEDTIME HPI HPI TV Pre Op LSG 10/04/24: Details: Start time: 11.30am, End time: 12pm ?I spent 25 minutes speaking with the patient on the phone plus an additional 5 minutes reviewing and updating records for a total of 30 minutes HPI Comments Details: Overall weight loss: 16.2lbs, or 6.5% TBWL Is doing 3 Merlos protein bars and one meal (8 forks of protein and 8 forks of salad or vegetables) Exercise: stationary bike x3 for 170 mary ann and walking outside for 170 calories PFSH Medical History (Updated 09/21/24 @ 12:02 by Michael Fuentes MD) Obesity Asthma Diabetes Insomnia Back pain Depression Bipolar 1 disorder Morbid obesity Surgical History (Updated 08/17/24 @ 09:42 by Kasey Kimball RN) History of surgery History of surgery Hx of tonsillectomy Hx of discectomy Family History (Updated 05/18/24 @ 15:54 by Sophie Bingham CMA) Mother Depression Anxiety Father No problems noted. Social History (Updated 05/18/24 @ 15:54 by Sophie Bingham CMA) Alcohol intake: current Alcohol intake frequency: holidays/special occasions only Patient Tobacco Use Status: Former Tobacco user Telehealth Telehealth Telehealth Platform: Telephone Location of provider rendering services: practice address Location of patient: address on file Patient Identification confirmed using: Name, : Yes Telehealth method: voice only Patient verbally consented to treatment: Yes Patient verbally consented to billing insurance company: Yes Patient informed of any privacy concerns related to visit: Yes Minutes spent on Phone/Video with Pt.: 30 Assessment & Plan Assessment & Plan (1) Obesity: Code(s): E66.9 - Obesity, unspecified Category: Medical Qualifiers: Obesity type: due to excess calories Obesity classification: adult class 2 (BMI 35 - 39.9) Serious obesity comorbidity presence: without serious comorbidity Body mass index: BMI 37.0-37.9 Qualified Code(s): E66.812 - Obesity, class 2; E66.09 - Other obesity due to excess calories; Z68.37 - Body mass index [BMI] 37.0-37.9, adult Plan: 1. Plan for lap sleeve gastrectomy including upper GI endoscopy. All tests has been completed and reviewed and the patient is cleared for the surgery. ?If diaphragmatic or ventral hernias are present at time of surgery, these will be repaired laparoscopically as well. Risks and complications were discussed in detail including possible conversion to an open procedure, anastomotic leak, bleeding requiring transfusion, small bowel obstruction, , DVT and pulmonary embolism, cardiac, or pulmonary complications, as group home complications such as anastomotic ulcer, insufficient weight loss and vitamin deficiencies. I emphasized the importance of close follow-up, adherence to instructions and good communication. So far she has proven to be an excellent communicator and very compliant with all our directions accomplishing a great weight loss. I believe that she is an excellent candidate and she is ready. 2. Preop prescriptions were provided and explained the purpose of each one. Need to be purchased preop. Start Pantoprazole now as you get it from the pharmacy, 1 pill per day. Sucralfate and Zofran are for after surgery as needed. 3. Bowel prep: please do 7 packets ?of Miralax mixing each one with a an 8oz glass of water, crystal light, gatorade zero, or propel ?on 10/02/24 and the same amount on 10/03/24. The Miralax you begin with one packet at a time in 8oz water or crystal light, gatorade zero, or propel ?as early in the day as you can and you do them back to back until you finish them. Continue the protein shakes during ?the bowel prep. 4. Needs to purchase 1oz medicine cups . 5. Needs to purchase Children's liquid Tylenol for postop pain control. 6. She needs to stop the Ozempic as of tomorrow 09/22/24. Last dose tomorrow. Avoid aspirin, motrin, Advil, Aleve, Meloxicam, Excedrin, Ibuprofen, Naproxyn. Tylenol is OK. 7. She needs to purchase the Celebrate multivitamins from the hospital's gift shop, chewable or pills whatever you prefer. 8. Will do basic preop blood work-up any day between Thursday09/26/24 and Thursday09/30/24 fasting for 12 hours and is scheduled to see the Anesthesiologist prior to the day of surgery. 9. Importance of adherence to postop follow-up and recommendations was underscored and she understands that. 10. Stop food and bars as of tomorrow 09/22/24 and continue with 4 ?Premier premade protein shakes (mix 6oz of Premier with 2oz of almond milk) at 7am-9am, 10am-12pm, 1pm-3pm, 4pm-6pm and one more Whole-Bottle Premier protein shake at 7pm-9pm 11. No soups, broths or V8 12. The patient's?medical?history has been reviewed and they are considered low risk for post op DVT and therefore DVT prophylaxis is not considered necessary. Travel after surgery was reviewed. The patient has not disclosed any travel plans during the first 30 days after surgery and they have been advised that within the first 30 days after surgery any bus, plane, train or car travel over 2 hours in duration is contraindicated due to the possibility of developing blood clots from immobility. Any travel, needs to include periods of ambulation of 10 minutes in duration every 2 hours.? Patient was instructed to discuss any plans for travel during this period with their bariatric surgeon.? 13. Please take at the day of surgery the following medications: None 14. Stop any control pills and don't use them for one month after surgery 15. Absolutely no smoking or vaping, or marijuana until the surgery and for at least the first 4 weeks. Only nicotine patches are allowed. 16. Send me weight measurements on 09/22/24, 09/29/24 and then on Thursday10/04/24, the day of surgery before you go to the hospital. 17. Avoid any steroids by mouth for any reason. Let me know if someone prescribes them to you 18. These instructions supersede anything else you read in the handbook, anything you watched in videos or classes or you were told by any other provider. If there is any conflict, you follow the above instructions and nothing else. Orders: Orders Comprehensive Met. Panel Today E11.9 - Type 2 diabetes mellitus without complications, E66.9 - Obesity, unspecified, Z68.37 - Body mass index [BMI] 37.0-37.9, adult TSH reflex Free T4 Today E11.9 - Type 2 diabetes mellitus without complications, E66.9 - Obesity, unspecified, Z68.37 - Body mass index [BMI] 37.0-37.9, adult Type and Screen Today E11.9 - Type 2 diabetes mellitus without complications, E66.9 - Obesity, unspecified, Z68.37 - Body mass index [BMI] 37.0-37.9, adult C Reactive Protein Today E11.9 - Type 2 diabetes mellitus without complications, E66.9 - Obesity, unspecified, Z68.37 - Body mass index [BMI] 37.0-37.9, adult Hemoglobin A1c Today E11.9 - Type 2 diabetes mellitus without complications, E66.9 - Obesity, unspecified, Z68.37 - Body mass index [BMI] 37.0-37.9, adult Complete Blood Count Auto Diff Today E11.9 - Type 2 diabetes mellitus without complications, E66.9 - Obesity, unspecified, Z68.37 - Body mass index [BMI] 37.0-37.9, adult Insulin Today E11.9 - Type 2 diabetes mellitus without complications, E66.9 - Obesity, unspecified, Z68.37 - Body mass index [BMI] 37.0-37.9, adult Prothrombin Time INR Today E11.9 - Type 2 diabetes mellitus without complications, E66.9 - Obesity, unspecified, Z68.37 - Body mass index [BMI] 37.0-37.9, adult Partial Thromboplastin Time Today E11.9 - Type 2 diabetes mellitus without complications, E66.9 - Obesity, unspecified, Z68.37 - Body mass index [BMI] 37.0-37.9, adult Lipid Panel Today E11.9 - Type 2 diabetes mellitus without complications, E66.9 - Obesity, unspecified, Z68.37 - Body mass index [BMI] 37.0-37.9, adult Medications: New pantoprazole 40 mg PO DAILY 90 tabs 0RF K21.9 - Gastro-esophageal reflux disease without esophagitis sucralfate 10 mL PO BID 600 mL 2RF K21.9 - Gastro-esophageal reflux disease without esophagitis ondansetron Only take one every 12 hours as needed if you have nausea 4 mg PO Q12H 20 tabs 0RF nausea and vomiting R11.0 - Nausea polyethylene glycol 3350 Mix each measuring cup with 8oz of water, Crystal light, or Gatorade zero, or Propel and do 7 measuring cups on 10/02/24 and another 7 measuring cups on 10/03/24 17 grams PO DAILY 119 grams 0RF Z01.818 - Encounter for other preprocedural examination
[2024-09-21 11:49] VITALS: BMI 37.8
== END 2024-09-21 12:01 | disposition home or self-care (01) ==
LOC: HO.HBS 08:21
PROVIDERS: PCP Pediatrics; Visit Provider Surgery
DX: E66.812 Obesity, class 2 (principal); E66.09 Other obesity due to excess calories; Z68.37 Body mass index [BMI] 37.0-37.9, adult
CPT/HCPCS: 99214

== ENCOUNTER → 2024-09-27 07:53 | Outpatient (BNVA) | payer OTHER, SELFPAY | PROVIDERS: PCP Pediatrics; Visit Provider Physician Assistant Surgical ==

== ENCOUNTER 2024-10-04 06:15 | Inpatient (IN) | payer OTHER, SELFPAY ==
[2024-09-26 12:22] VITALS: BMI 37.4
[2024-09-27 07:43] LABS: MANUAL DIFF FLAG NO
[2024-09-27 07:48] LABS: Basophils Percent Auto 0.4 % (0-2); Eosinophils Percent Auto 0.3 % (0-4); Hemoglobin 13.4 g/dl (12.0-16.0); Imm Gran Abs Auto 0.02 X10*3/uL (0.00-0.03); Imm Gran Pct Auto 0.3 % (0.0-0.4); Lymphocytes Absolute Auto 2.7 X10*3/uL (1.2-4.9); Lymphocytes Percent Auto 39.5 % (20-40); Mean Corpuscular HGB Conc 32.7 g/dl (31.0-35.0); Mean Corpuscular Hemoglobin 27.7 pg (27.0-33.0); Mean Corpuscular Volume 84.9 fL (80.0-98.0); Mean Platelet Volume 9.7 fL (9.4-12.3); Monocytes Absolute Auto 0.5 X10*3/uL (0.1-1.2); Neutrophils Absolute Auto 3.6 x10*3/uL (2.0-8.3); Neutrophils Percent Auto 52.5 % (45-73); Platelet Count 240 X10*3/uL (160-400); Red Blood Count 4.83 X10*6/uL (4.20-5.50); White Blood Count 6.9 X10*3/uL (4.8-10.8)
[2024-09-27 07:56] LABS: Estimated Average Glucose 105 mg/dL; Hemoglobin A1C 120.9556 umol/L; Hemoglobin A1c % 5.3 % (<6.0); Total Hemoglobin (HGBA1C) 3467.4828 umol/L
[2024-09-27 07:58] LABS: INTERNATIONAL NORM RATIO 1.1 (0.9-1.1); Partial Thromboplastin Time 31.5 SEC (26.0-36.8); Prothrombin Time 12.2 SEC (10.9-12.4)
[2024-09-27 08:25] LABS: Alanine Aminotransferase 30 U/L (0-31); Albumin Level 4.3 g/dL (3.5-5.0); Alkaline Phosphatase 72 U/L (39-117); Anion Gap 11 (12-20); Aspartate Amino Transferase 30 U/L (5-31); Bilirubin Total 0.6 mg/dL (0.0-1.0); Blood Urea Nitrogen 14 mg/dL (9-16); Calcium 9.7 mg/dL (8.4-10.2); Carbon Dioxide 27 mmol/L (22-29); Chloride 103 mmol/L (96-108); Cholesterol 180 mg/dL (<200); Creatinine Clr Calc Pharmacy 136.9; Estimated Glomerular Filt Rate > 60; Glucose Random 95 mg/dL (60-115); HDL Cholesterol 34 mg/dL (>40); LDL Cholesterol Calculated 127 mg/dL (<100); Potassium 4.4 mmol/L (3.3-5.1); Sodium 137 mmol/L (135-145); Triglycerides 99 mg/dL (<150)
[2024-09-27 08:42] LABS: Insulin 15 uU/mL (2-29); TSH reflex Free T4 1.25 uIU/mL (0.32-4.0)
--- NOTE | 2024-10-03 08:54 | P.CONAN_ITS ---
Documented by User: Susana Rose NP 10/03/24 08:56 HPI - Anesthesia Eval Consult details Narrative: 29yo F for Gastrectomy Sleeve,EGD,possible Diaphragmatic Hernia,possible Ventral Hernia,possible Open Methadone daily Anesthesia Pre-Procedure Meds Is the patient on any of the following meds?: GLP1/DPP4 PMFSH Active Problems Active Problems: All Active Problems BMI 37.0-37.9, adult (Acute) Non-insulin dependent type 2 diabetes mellitus (Acute) Obesity (Acute) Insomnia (Acute) Back pain (Acute) Depression (Acute) Bipolar 1 disorder (Acute) Morbid obesity (Acute) Past Medical History Medical History Left leg numbness Ambulates with cane Fatty liver Anxiety Obesity Asthma Diabetes Insomnia Back pain Depression Bipolar 1 disorder Morbid obesity Family History Family History Mother Depression Anxiety Father No problems noted. Family history of problems with anesthesia: No Surgical History Surgical History History of surgery History of surgery Hx of tonsillectomy Hx of discectomy History of Problems with Anesthesia: No Social History Social History Household Members: Significant Other Housing: House Are you a primary acute care assistant to a significant other at home: No Do you presently have visiting nurse or other home services: No Alcohol intake: current Alcohol intake frequency: holidays/special occasions only Patient Tobacco Use Status: Former Tobacco user Tobacco use type: Cigarette e-Cigarette/Vaping Use: Former Use Substance Use Type: Opiates Substance Use Type Other:: on Methadone 4.5 years Have you been hit, kicked, punched, or otherwise hurt by someone within the past year? If so, by whom?: No Are you DNR?: No Advance Directives: No Advance Directives Information Provided: Yes Advance Directives on File: No Patient : No FDLMP: unknown : No Poor oral hygiene: No (upper partial) Meds Allergies Allergy/AdvReac Type Severity Reaction Status Date / Time fentanyl Allergy Intermediate rash from Verified 10/04/24 06:33 fentanyl patch sumatriptan [Imitrex] Allergy Intermediate chest pain Verified 10/04/24 06:33 Home Medications ?Medication ?Instructions ?Recorded ?Confirmed ?Last Taken ?Type aripiprazole 30 mg tablet (Abilify) 30 mg PO BEDTIME 05/18/24 09/26/24 10/03/24 History levothyroxine 50 mcg capsule 50 mcg PO DAILY 05/18/24 09/26/24 10/03/24 History zolpidem 5 mg tablet (Ambien) 5 mg PO BEDTIME PRN Insomnia 05/18/24 09/26/24 Unknown History duloxetine 60 mg capsule,delayed 60 mg PO DAILY 05/25/24 09/26/24 10/03/24 History release methadone 40 mg soluble tablet 40 mg PO DAILY 08/17/24 09/26/24 10/03/24 History Exam Height,Weight and Vital Signs: Height 5 ft 6 in Weight 105.233 kg Pertinent Lab Results Pertinent Lab Results: Laboratory Tests 09/27/24 09/27/24 07:31 07:41 WBC 6.9 RBC 4.83 Hgb 13.4 Hct 41.0 MCV 84.9 MCH 27.7 MCHC 32.7 RDW 13.0 Plt Count 240 MPV 9.7 Immature Gran % (Auto) 0.3 Neut % (Auto) 52.5 Lymph % (Auto) 39.5 Dickson % (Auto) 7.0 Eos % (Auto) 0.3 Baso % (Auto) 0.4 Lymph # (Auto) 2.7 Dickson # (Auto) 0.5 Eos # (Auto) 0.0 Baso # (Auto) 0.0 Abs Immat Gran (auto) 0.02 Absolute Neuts (auto) 3.6 Absolute Nucleated RBC 0.000 Nucleated RBC % (auto) 0.0 PT 12.2 INR 1.1 APTT 31.5 Sodium 137 Potassium 4.4 Chloride 103 Carbon Dioxide 27 Anion Gap 11 L BUN 14 Creatinine 0.73 Estim Creat Clear Calc 136.9 Estimated GFR > 60 Random Glucose 95 Estimat Average Glucose 105 Hemoglobin A1c % 5.3 Insulin Level 15 Calcium 9.7 Total Bilirubin 0.6 AST 30 ALT 30 Alkaline Phosphatase 72 C-Reactive Protein 1.40 H Total Protein 7.0 Albumin 4.3 Triglycerides 99 Cholesterol 180 LDL Cholesterol, Calc 127 H HDL Cholesterol 34 L TSH 1.25 Blood Type A Positive Antibody Screen NEGATIVE Narrative Narrative: EKG 05/2024 Vent. Rate : 81 BPM Atrial Rate : 81 BPM P-R Int : 170 ms QRS Dur : 82 ms QT Int : 372 ms P-R-T Axes : 68 50 54 degrees QTcB Int : 432 ms Normal sinus rhythm Normal ECG No previous ECGs available Assessment and Plan Assessment Anesthesia Assessment: Chart Reviewed Final Anesthetic Review Family History of Problems with Anesthesia: No History of Problems with Anesthesia: No Documented by User: Leighton Randolph MD 10/04/24 07:15 HPI - Anesthesia Eval Anesthesia Pre-Procedure Meds If yes to any meds - educate patient: Pt education - increased risk of aspiration and/or euvolemic DKA PMFSH Past Medical History Medical History Left leg numbness Ambulates with cane Fatty liver Anxiety Obesity Asthma Diabetes Insomnia Back pain Depression Bipolar 1 disorder Morbid obesity Functional capacity: independent ambulation Patient : No Family History Family History Mother Depression Anxiety Father No problems noted. Surgical History Surgical History History of surgery History of surgery Hx of tonsillectomy Hx of discectomy Social History Social History Household Members: Significant Other Housing: House Are you a primary acute care assistant to a significant other at home: No Do you presently have visiting nurse or other home services: No Alcohol intake: current Alcohol intake frequency: holidays/special occasions only Patient Tobacco Use Status: Former Tobacco user Tobacco use type: Cigarette e-Cigarette/Vaping Use: Former Use Substance Use Type: Opiates Substance Use Type Other:: on Methadone 4.5 years Have you been hit, kicked, punched, or otherwise hurt by someone within the past year? If so, by whom?: No Are you DNR?: No Advance Directives: No Advance Directives Information Provided: Yes Advance Directives on File: No Patient : No FDLMP: unknown : No Poor oral hygiene: No (upper partial) Meds Allergies Allergy/AdvReac Type Severity Reaction Status Date / Time fentanyl Allergy Intermediate rash from Verified 10/04/24 06:33 fentanyl patch sumatriptan [Imitrex] Allergy Intermediate chest pain Verified 10/04/24 06:33 Home Medications ?Medication ?Instructions ?Recorded ?Confirmed ?Last Taken ?Type aripiprazole 30 mg tablet (Abilify) 30 mg PO BEDTIME 05/18/24 09/26/24 10/03/24 History levothyroxine 50 mcg capsule 50 mcg PO DAILY 05/18/24 09/26/24 10/03/24 History zolpidem 5 mg tablet (Ambien) 5 mg PO BEDTIME PRN Insomnia 05/18/24 09/26/24 Unknown History duloxetine 60 mg capsule,delayed 60 mg PO DAILY 05/25/24 09/26/24 10/03/24 History release methadone 40 mg soluble tablet 40 mg PO DAILY 08/17/24 09/26/24 10/03/24 History Exam Exam Date and Time: 10/04/2024 Airway Mallampati Class: II TM Dist: >3cm Neck ROM: Full Loose/Missing/Broken Teeth: No Heart: rrr Lungs: cta Assessment and Plan Assessment Anesthesia Assessment: Anesthesia Plan Discussed Final Anesthetic Review NPO: Yes ASA Class: II Final Preanesthetic Review: No Changes in Pt Med Stat, Meds/Allgs Chart Reviewed, Consent Obtained/Reviewed and Anes Risks/Benef Reviewed Patient Risk: Intermediate Procedure Risk: Intermediate Anesthetic Plan Anesthetic Plan: GA Disposition: Standard PACU
[2024-10-04] VITALS (13 sets, daily range): BP systolic 109–135; BP diastolic 57–81; PULSE 57–86; RESP 14–18; TEMP 36.3–36.8; O2SAT 93–100; BMI 36.4
[2024-10-04 06:37] LABS: UPreg QC Valid YES; Urine Pregnancy NEGATIVE (NEGATIVE)
[2024-10-04] MEDS: Lactated Ringers 1,000 ML 999 ML IV (06:50)
[2024-10-04] MEDS: Aprepitant 32 MG/4.4 ML VIAL IVPUSH (06:54)
--- NOTE | 2024-10-04 07:27 | PHA.MEDREC ---
Pharmacy Consult ? Medication Reconciliation Pharmacy has reviewed the medication reconciliation done by RN. Utilized claims, of note, some claims seem to be out of date.
--- NOTE | 2024-10-04 07:30 | P.HPSUR_ITS ---
Pre-Procedural Eval Section A - 24 Hr Update-Section A only Date of Service: 10/04/24 The patient is an INPATIENT: Yes The patient has been examined within 24 hours of the surgical procedure. The History & Physical has been completed within 30 days and I have reviewed it.: Yes Section B - Complete if H&P > 30 days Chief Complaint: Obesity Relevant Family History (Specify if Yes): No Relevant Social History: None Present Medications: None Medical History: No relevant PMH History of Previous Operations: No relevant previous surgery Allergies: Allergies Allergy/AdvReac Type Severity Reaction Status Date / Time fentanyl Allergy Intermediate rash from Verified 10/04/24 06:33 fentanyl patch sumatriptan [Imitrex] Allergy Intermediate chest pain Verified 10/04/24 06:33 Review of Systems Sugical H&P ROS: Negative: Constitution, Cardiovascular, Respiratory, Neurological, Psychiatric, Hem-Onc, Allergic/Immunologic, Gastrointestinal, Genitourinary, Musculoskeletal, Integumentary, Endocrine and Ey es/Ears/Nose/Throat Exam Surgical H&P Exam: Normal: HEENT, Normal: Heart, Normal: Lungs, Normal: Extremities, Normal: Abdomen, Normal: Skin and Normal: Neurological Plan Diagnosis/Plan: Unchanged I have reviewed the history and physical and performed a pertinent physical examination on my patient. No changes have occurred unless specified. Time Spent With Patient Time: Total time managing care of this patient today ____ minutes.
[2024-10-04] MEDS: ceFAZolin Sodium/Dextrose,Iso 2 GM/50 ML PIGGYBACK IV ×2 (07:40→13:32)
[2024-10-04] MEDS: Acetaminophen 1,000 MG/100 ML PIGGYBACK 400 MG IV (08:00)
[2024-10-04] MEDS: ondansetron HCL 4 MG/2 ML VIAL IVPUSH (09:38)
--- NOTE | 2024-10-04 09:39 | P.BOP_ITS ---
Brief Operative Note Date of Service: 10/04/24 Pre-op diagnosis: Severe obesity with comorbidities (see below) Post-op diagnosis: same Procedure: INITIAL PATIENT BMI ON PRESENTATION AT OUR OFFICE: 40.3 kg/m2 LAST BMI BEFORE SURGERY: 36.9 kg/m2 COMORBIDITIES: non-insulin dependent diabetes, bipolar disorder, hypothyroidism, insomnia, back pain, GERD, liver steatosis, liver fibrosis ?The patient presented to the Weight Management Program with significant obesity that was negatively impacting the patient's comorbidities as listed above.? The program is a phased program with a special focus on preoperative medical weight management to promote substantial weight loss and prepare the patients for the second phase of the program: bariatric surgery. The patient participated in an intensive weekly lifestyle ?intervention and exercise program during which the patient ?has lost between the initial office visit and the last preoperative visit 22.8 lbs, or 9.14% of initial actual body weight. It was deemed appropriate for the patient to now have bariatric surgery. In light of the current Covid-19 pandemic and the well documented strong association of obesity and increased risk of worse outcomes if infected with Covid-19 (REFERENCES: https://pubmed.ncbi.nlm.nih.gov/60499954/ ,? https://pubmed.ncbi.nlm.nih.gov/94655202/ ), any delay in undergoing bariatric surgery may lead to the patient's worsening health condition and increased?risk of more severe Covid-19 disease if infected. In addition a recent?study from [facility] published in [facility] on 04/15/2021 ([email or web address]) found that, among patients with obesity, substantial weight loss achieved with surgery was associated with improved outcomes of COVID-19 infection. The findings suggest that obesity can be a modifiable risk factor for the severity of COVID- 19 infection. In addition, the patient met the BMI-criteria for bariatric surgery based on the BMI on initial presentation. The patient should not be penalized for achieving such weight loss because ?it is not sustainable long-term without surgical intervention and it was achieved in preparation for bariatric surgery ?under my direction and based on my published research ([email or web address]).[email or web address] and? https://www.soard.org/article/[email or web address](58)11430-X/pdf ) ?that a 10% preoperative weight loss improves long-term weight loss after surgery and reduces perioperative complications.? Insurance carriers such as [facility] have endo rsed my recommendations ?and have included in their policies criteria to include a 10% preoperative weight loss requirement. PROCEDURE: Esophago-gastroscopy laparoscopic sleeve gastrectomy and laparoscopic gastropexy INDICATIONS: This is a 29 year-old female who was electively scheduled for laparoscopic, possibly open sleeve gastrectomy. The risks and complications of the procedure were discussed with the patient in advance, particularly the possibility of ; pulmonary embolism; staple line leak; bleeding; GERD; cardiac, pulmonary, or renal complications; as well as long-term problems such as insufficient weight loss, vitamin deficiency, strictures, or ulcers. The patient understood all the risks, and was in agreement to proceed with surgery. DESCRIPTION OF PROCEDURE: After informed consent was obtained from the patient, the patient was given preoperative antibiotics, and was transferred to the operating room. After successful induction of general anesthesia, pneumatic compression devices were placed on both lower extremities. An upper endoscopy was performed next. The oropharynx and esophagus appeared to be within normal limits. There was no diaphragmatic hernia present. The stomach was entered. Then after all fluid and air were suctioned and the stomach was fully decompressed, the scope was withdrawn and secured in the mid esophagus. The patient was then prepped and draped in the usual sterile manner, and abdominal access was established at the right upper quadrant with the Irvin technique. A 12 mm blunt port was inserted, and the abdomen was insufflated with CO2 to a pressure of 15 mmHg. Under direct visualization, additional ports were placed, specifically two 5 mm Versi-step ports to the left upper quadrant, and a 5 mm Versi-Step port to the right upper quadrant. 1% lidocaine plain was used to infiltrate all port sites as well as all fascia defects. Following that, the patient was placed in a steep reverse Trendelenburg position. An additional 5 mm port was placed to the right flank for the Mediflex retractor that was used to retract the left lobe of the liver. The gastro-esophageal fat pad was opened with the ultrasonic device (Jt Olympus) and the anterior esophagus and hiatus were exposed. The angle of His was opened with the ultrasonic device the fundus of the stomach from any diaphragmatic and splenic attachments. I then opened the gastrocolic ligament between the transverse colon and the greater curvature of the stomach with the ultrasonic device to enter the lesser sac and facilitate the ligation of the short gastric vessels. I started at a mid-point along the greater curvature and using the Thunderbeat, all short gastric vessels were divided all the way to the angle of His until the left dimitry was completely dissected at its entirety. I then divided the gastro-colic ligament distally to a distance of about 3-4 cm proximal to the pylorus. The stomach was then divided transversely with four Endo TE-45 purple and two TE-60 articulating purple loads using the Third Age stapler and loads. Every effort was made that the gastric sleeve had a tubular shape and an even caliber throughout. Once the sleeve resection was completed, the staple line of the gastric sleeve was reinforced with Hemoclips. The resected stomach was retrieved without difficulty from the Irvin port. A gastropexy was then performed in order to prevent postoperative GERD and partial gastric volvulus. Several interrupted 2.0 Surgidac sutures were placed between the sleeve's staple line and the previously divided greater omentum and gastro-colic ligament using the Endo-Stitch device. ?An upper endoscopy was performed. There was no narrowing at the GE junction. The scope was easily advanced all the way to the pylorus which was clearly visualized. There was no narrowing anywhere and the sleeve's caliber was even throughout. The sleeve's staple line was inspected and there was no evidence of ischemia, bleeding or dehiscence. At that point the gastroscope was withdrawn from the patient?s mouth while we were decompressing the bowel and the stomach from any remaining air. I looked into the lesser sac to see how the sleeve was situating and it was situating well. There was no bleeding from the staple line, spleen, or short gastric vessels. The Mediflex retractor was removed, and the undersurface of the liver was inspected and there was no bleeding. The patient was placed in supine position. I closed the fascial defect of the 12 mm port site with a figure of eight #1 Polysorb suture. Then 30cc Ropivacaine plain with 10 mg of Dexamethasone were used to infiltrate the fascial closure as well as all skin incisions. At this point, the abdomen was deflated, all ports were removed under direct vision, and no bleeding was noted from any of the port sites. The skin incisions were irrigated with saline and were closed with 4-0 absorbable monofilament sutures. Steri-Strips and OpSites were used to cover all incisions. The patient was extubated and was transferred in stable condition to the recovery room for further care. I was present and performed all lopes parts of the procedure. Ms. Brookspancho was the learning support assistant. There were no residents to assist with this case. Mir Fuentes MD, PhD, FACS Surgeon: Michael Fuentes MD Anesthesia: GETA, local and other (TAP block) Was an Receiving Inspector used for this Procedure?: Yes Receiving Inspector: Tamia Chavira Estimated blood loss (mL): 10 IV fluids (mL): 1,800 Urine output (mL): 0 (No Menendez to record output) Pathology: other () Stomach, 2) Gastro-esophageal fat pad) Condition: stable Disposition: PACU
--- NOTE | 2024-10-04 09:39 | PM.DS ---
DS: Providers Provider Date of Service: 10/05/24 Date of admission: 10/04/24 06:15 Date of discharge: 10/05/24 Primary care physician: Erin Perez DO DS: Summary Hospital Course Hospital Course: ADMITTING DIAGNOSIS: obesity DISCHARGE DIAGNOSIS: same, s/p laparoscopic sleeve gastrectomy and gastropexy PAST SURGICAL HISTORY:? Hx of tonsillectomy Hx of discectomy PROCEDURE: upper endoscopy, laparoscopic sleeve gastrectomy and gastropexy DISCHARGE SUMMARY: History of Present Illness: The patient is a?29 year-old woman with a BMI of?36.4 kg/m2 and associated co-morbidities as described above. The patient had extensive work-up, lost?23.6 lbs preoperatively and was electively scheduled for laparoscopic, possible open sleeve gastrectomy and gastropexy. Risks and complications of the surgery were discussed with the patient in advance, particularly the possibility of , pulmonary embolism, anastomotic leak, bleeding, bowel injury, GERD, cardiac, renal or pulmonary complications. The patient understood all the risks and was in agreement with the surgical plan. Hospital Course: The patient underwent an uneventful laparoscopic sleeve gastrectomy with gastropexy on the day of admission. Postoperatively, the patient was transferred to the surgical floor. The patient received IV acetaminophen and IV Dilaudid for pain control. Patient was started on bariatric phase 1 diet POD #0. On postoperative day one, the patient was feeling well without nausea, vomiting, fevers, or tachycardia. The patient had some mild incisional pain and the abdomen was soft.? ? On the morning of postoperative day one, the patient was continued on 1 ounce of water or ice every half hour. During the day, the patient did fairly well, having some incisional pain, but able to ambulate adequately and to tolerate liquids well. Since the patient is doing well, we decided that the patient was ready to be discharged. The patient was given instructions to follow-up in office next week and to call the office for any fever over 101, persistent abdominal pain, nausea, vomiting, GERD, symptoms of DVT such as calf tenderness, or leg swelling, or pulmonary embolism such as chest pain or shortness of breath.? The patient was also instructed to drink 40-60 ounces of liquids per day using the 1-ounce cups. The patient had been given prescriptions for Tylenol for pain, Zofran prn for nausea, and pantoprazole and carafate previously. The patient was encouraged to ambulate and use the incentive spirometer. The patient was allowed to shower, but no baths, and encouraged to stay active at home. All of these instructions were given to the patient personally. All questions were answered and the patient understood all instructions, the instructions were also given to the patient in print. Time Attestation Discharge Coordination Time (in mins): 30 Quality: Safe Use of Opioids Does Pt have an Active Cancer Diagnosis on the Problem List?: No Quality: Stroke Does the patient have a stroke diagnosis?: No Physical Exam Vital Signs: Vital Signs: Last Vital Signs Temp 97.5 F 10/04/24 09:26 Pulse 86 10/04/24 09:31 Resp 16 10/04/24 09:31 BP 120/75 10/04/24 09:31 Pulse Ox 100 10/04/24 09:31 O2 Del Method Nasal Cannula 10/04/24 09:31 O2 Flow Rate 2 10/04/24 09:31 BMI result Body Mass Index 36.4 DS: Data Data Completed and Pending Pending studies at discharge: Pending at discharge 10/04/24 08:51 Surgical [PTH] Routine Labs on day of discharge: Laboratory Results - last 24 hr 10/04/24 06:30 Urine Test NEGATIVE Discharge Plan Discharge Anticipated Discharge Date/Time: 10/05/24 10:00 Patient Disposition: Home, Self-Care Discharge Diagnosis: s/p laparoscopic sleeve gastrectomy with gastropexy Referrals: Erin Perez DO [Primary Care Provider] - 1 Week Discharge Medications: Continued methadone 40 mg Tablet,Soluble 40 mg PO DAILY levothyroxine 50 mcg capsule 50 mcg PO DAILY aripiprazole [Abilify] 30 mg tablet 30 mg PO BEDTIME zolpidem [Ambien] 5 mg tablet 5 mg PO BEDTIME PRN (Reason: Insomnia) Rx Instructions: may repeat once if no response in 30-60 minutes duloxetine 60 mg capsule,delayed release(DR/EC) 60 mg PO DAILY pantoprazole 40 mg tablet,delayed release (DR/EC) 40 mg PO DAILY Qty: 90 0RF sucralfate 100 mg/mL suspension 10 ml PO BID Qty: 600 2RF ondansetron 4 mg tablet,disintegrating 4 mg PO Q12H Qty: 20 0RF Rx Instructions: Only take one every 12 hours as needed if you have nausea Discontinued cholecalciferol (vitamin D3) 125 mcg (5,000 unit) capsule 125 mcg PO DAILY Qty: 90 0RF Ozempic 2 mg/dose (8 mg/3 mL) pen injector 2 mg subcut QWEEK Qty: 3 0RF polyethylene glycol 3350 17 gram/dose powder 17 g PO DAILY Qty: 119 0RF Rx Instructions: Mix each measuring cup with 8oz of water, Crystal light, or Gatorade zero, or Propel and do 7 measuring cups on 10/02/24 and another 7 measuring cups on 10/03/24 Discharge Orders: Discharge Order (Routine); Ordered 10/05/24 Ordered By: Michael Fuentes Activity on Discharge: No heavy lifting Stand Alone Forms: Patient Portal Discharge page Print Language: Icelandic Care Plan Goals: weight loss Health Concerns: obesity Plan of Treatment: No tub baths, sex or returning to work until discussed at first post op appointment. No alcohol, tobacco or illegal drug use. Continue to use incentive spirometer hourly while awake. Walk in home for 5- 10 minutes every 2 hours during the first week. Wear abdominal binder with activity. Follow all meal plan instructions from your bariatric surgeon. Review bariatric handbook and call with any questions. Discharge Instructions 1. Please call your doctor or come back to the emergency room should any new symptoms arise. 2. Activity: abstain from alcohol,? limited stair climbing, no bending, no driving, no exercise, no illicit substances, no lifting, no sex, no tub bath, no work. 4. Diet: follow your bariatric surgeon's recommendations for advancing diet. 5. Dressing Change/Wound Care: Your incisions are covered with waterproof dressings. You can shower with these and pat dry. Do not rub over dressings or incisions. If the area is tender, you may apply an ice pack for short intervals (no more than 20 minutes on, followed by at least 20 minutes off). Do not apply heat. Do not use creams, lotions, or topical antibiotics unless instructed to do so by your surgeon. 6. Call your doctor if: - Your temperature exceeds 101.5 F - You experience excessive pain or swelling - You have an unexpected reaction to medication - You have excessive bleeding - You experience continued vomiting/nausea - Your incision begins to separate - Your incision shows signs of infection such as increased redness, swelling, excessive pain, heat, or drainage (light blood or clear fluid is normal) General instructions: No lifting greater than 10 lbs for the next 6 weeks. No driving within 24 hours of taking narcotic pain medications. If you do not move your bowels in the next 2 days, please take milk of magnesia over the counter. Please follow the post op diet and do not advance your diet until instructed by your surgeon or until you are seen in the office in about 1 week. Please walk around your home every hour or two to prevent blood clots from forming in your legs. You do not need to wake from sleeping to walk. Please sleep in a bed or couch to prevent kinking at the hips and knees. Please take your incentive spirometer (your lung rehabilitation counsellor) home with you and use it for the next few days to prevent pneumonias. You may shower; no hot tubs, baths or swimming pools. Please make sure you are consuming 40-60 ounces of total fluids per day. Avoid all carbonation. Please call the office with any questions or concerns such as increasing abdominal pain, fever, chills, shortness of breath, chest pain, leg pain or swelling, or redness or drainage from your incisions. Do not hesitate to contact the office with any questions at . The patient's medical history has been reviewed and they are considered low risk for post op DVT and therefore DVT prophylaxis is not considered necessary. Travel after surgery was reviewed. The patient has not disclosed any travel plans during the first 30 days after surgery and they have been advised that within the first 30 days after surgery any bus, plane, train or car travel over 2 hours in duration is contraindicated due to the possibility of developing blood clots from immobility. Any travel, needs to include periods of ambulation of 10 minutes in duration every 2 hours.? The patient was instructed to discuss any plans for travel during this period with their bariatric surgeon. Assessment: s/p laparoscopic sleeve gastrectomy with gastropexy Discharge Date/Time: 10/05/24 09:02
--- NOTE | 2024-10-04 09:43 | P.PNGS_ITS ---
Subjective Subjective Date of Service: 10/05/24 Interval history: Feels well. Mild incisional pain. She is tolerating phase 1 bariatric diet Physical Exam 2 Vital Signs: Vital Signs: Last Vital Signs Temp 97.5 F 10/04/24 09:26 Pulse 79 10/04/24 09:36 Resp 18 10/04/24 09:36 BP 121/68 10/04/24 09:36 Pulse Ox 100 10/04/24 09:36 O2 Del Method Nasal Cannula 10/04/24 09:36 O2 Flow Rate 2 10/04/24 09:36 BMI result Body Mass Index 36.4 GI: Inspection: Yes normal to inspection and Yes incision (clean, dry and intact) Palpation (GI): Soft to palpation Extrem: Right lower extremity: normal to inspection (no calf tenderness) L eft lower extremity: normal to inspection (no calf tenderness) Objective Data Active Medications Fentanyl (Fentanyl Citrate/Pf 100 Mcg/2 Ml Vial) 50 mcg IVPUSH Q5M PRN PRN Reason: Pain, Moderate to Severe (Pain Scale 4-10) Stop: 10/04/24 13:16 Hydromorphone HCl (Hydromorphone Hcl 0.5 Mg/0.5 Ml Syringe) 0.5 mg IVPUSH Q5M PRN PRN Reason: Pain, Moderate to Severe (Pain Scale 4-10) Stop: 10/04/24 13:16 Lactated Ringer's (Lr) 1,000 mls @ 50 mls/hr IVCONT .Q20H YVON Naloxone HCl (Naloxone Hcl 0.4 Mg/Ml Vial) 0.04 mg IVPUSH Q5M PRN PRN Reason: Excessive sedation or RR < 8 Labs 10/05/24 05:21 10/05/24 05:21 Labs: Laboratory Results - last 24 hr 10/04/24 06:30 Urine Test NEGATIVE Procedures Date of Service Date of Service: 10/05/24 Progress Note: A&P Assessment and plan (1) Obesity: Status: Acute Assessment and Plan: s/p laparoscopic sleeve gastrectomy, lysis of adhesions, diaphragmatic hernia repair and gastropexy Doing well Will check am labs and if OK the patient will be discharged home (2) BMI 36.0-36.9,adult: Status: Acute (3) Non-insulin dependent type 2 diabetes mellitus: Status: Acute (4) Bipolar 1 disorder: Status: Acute (5) Depression: Status: Acute (6) Back pain: Status: Acute (7) Insomnia: Status: Acute (8) GERD (gastroesophageal reflux disease): Status: Acute (9) Liver fibrosis: Status: Acute (10) Hypothyroidism: Status: Acute Time Spent With Patient Time: Total time managing care of this patient today ____ minutes. Quality Stroke Does the patient have a stroke diagnosis?: No VTE Prior VTE?: No VTE Risk Level:: Surgical - moderate VTE Device Contraindication: N/A - Device Ordered VTE Drug Contraindication: Treatment Not Indicated
[2024-10-04 10:09] LABS: Hematocrit 36.3 % (37.0-47.0); Hemoglobin 12.4 g/dl (12.0-16.0)
[2024-10-04] MEDS: fentaNYL citrate/PF 100 MCG/2 ML VIAL 50 MCG IVPUSH (10:22)
[2024-10-04 11:24] LABS: Anion Gap 11 (12-20); Blood Urea Nitrogen 17 mg/dL (9-16); Calcium 9.4 mg/dL (8.4-10.2); Carbon Dioxide 29 mmol/L (22-29); Chloride 103 mmol/L (96-108); Creatinine Clr Calc Pharmacy 136.8; Estimated Glomerular Filt Rate > 60; Glucose Random 148 mg/dL (60-115); Potassium 4.1 mmol/L (3.3-5.1); Sodium 139 mmol/L (135-145)
[2024-10-04] MEDS: Lactated Ringers 1,000 ML 100 ML IVCONT ×2 (11:36→21:36)
[2024-10-04] MEDS: Acetaminophen 1,000 MG/100 ML PIGGYBACK 16.7 MG IV ×2 (14:08→20:05)
[2024-10-04 16:55] LABS: Glucose, Whole Blood 104 mg/dL (60-115)
[2024-10-04] MEDS: ARIPiprazole 30 MG TABLET PO (20:11)
[2024-10-04] MEDS: Famotidine/PF 20 MG/2 ML VIAL IVPUSH (20:12)
[2024-10-04] MEDS: Zolpidem Tartrate 5 MG TABLET PO (20:12)
[2024-10-04] MEDS: 0.9 % Sodium Chloride Flush 3 ML SYRINGE IVFLUSH (20:12)
[2024-10-05] MEDS: Acetaminophen 1,000 MG/100 ML PIGGYBACK 16.7 MG IV (02:03)
[2024-10-05 02:56] VITALS: BP 107/55; PULSE 65; RESP 18; TEMP 36.6; O2SAT 95
[2024-10-05 06:06] LABS: MANUAL DIFF FLAG NO
[2024-10-05 06:22] LABS: Basophils Percent Auto 0.1 % (0-2); Hematocrit 37.8 % (37.0-47.0); Hemoglobin 12.7 g/dl (12.0-16.0); Imm Gran Abs Auto 0.03 X10*3/uL (0.00-0.03); Imm Gran Pct Auto 0.4 % (0.0-0.4); Lymphocytes Absolute Auto 1.4 X10*3/uL (1.2-4.9); Lymphocytes Percent Auto 16.9 % (20-40); Mean Corpuscular HGB Conc 33.6 g/dl (31.0-35.0); Mean Corpuscular Hemoglobin 28.3 pg (27.0-33.0); Mean Corpuscular Volume 84.2 fL (80.0-98.0); Mean Platelet Volume 10.2 fL (9.4-12.3); Monocytes Absolute Auto 0.4 X10*3/uL (0.1-1.2); Monocytes Percent Auto 4.9 % (2-11); Neutrophils Absolute Auto 6.6 x10*3/uL (2.0-8.3); Neutrophils Percent Auto 77.7 % (45-73); Platelet Count 244 X10*3/uL (160-400); Red Blood Count 4.49 X10*6/uL (4.20-5.50); Red Cell Distribution Width 13.3 % (11.0-16.0); White Blood Count 8.5 X10*3/uL (4.8-10.8)
[2024-10-05 06:27] LABS: Anion Gap 13 (12-20); Blood Urea Nitrogen 10 mg/dL (9-16); Calcium 9.2 mg/dL (8.4-10.2); Carbon Dioxide 24 mmol/L (22-29); Chloride 108 mmol/L (96-108); Creatinine Clr Calc Pharmacy 166.9; Estimated Glomerular Filt Rate > 60; Glucose Random 81 mg/dL (60-115); Sodium 141 mmol/L (135-145)
--- NOTE | 2024-10-05 07:49 | HO.POSTANES ---
Post Anesthesia Evaluation Post Anesthesia Evaluation Date of Service: 10/05/24 Vital Signs: Vital Signs Temp Pulse Resp BP Pulse Ox O2 Del Method 10/05/24 02:56 97.9 F 65 18 107/55 L 95 Room Air 10/04/24 23:14 97.6 F 65 16 112/57 L 95 Room Air Anesthesia: General Endotracheal-GETA Mental Status: Awake Pain Control: Satisfactory Nausea/Vomiting: None Hydration: Adequate Anesthesia-Related Issues: No Anes. Related Issues
[2024-10-05 07:55] VITALS: BP 118/79; PULSE 78; RESP 17; TEMP 36.9; O2SAT 98
[2024-10-05] MEDS: DULoxetine HCl 60 MG CAPSULE.DR PO (08:04)
[2024-10-05] MEDS: methADONE HCl 20 MG/2 ML ORAL.CONC 40 MG PO (08:04)
[2024-10-05] MEDS: Famotidine/PF 20 MG/2 ML VIAL IVPUSH (08:04)
[2024-10-05] MEDS: Levothyroxine Sodium 50 MCG TABLET PO (08:04)
--- NOTE | 2024-10-05 09:09 | MHC.CM.PN ---
pt lives with boyfriend is indepedent does not need services has a ride
== END 2024-10-05 09:02 | disposition home or self-care (01) | DRG 621 ==
LOC: HO.SSSA 06:18 → HO.S3 09:29
PROVIDERS: Anesthesiology; Surgery; Admitting Provider Physician Assistant Surgical; PCP Pediatrics; Visit Provider Physician Assistant Surgical
PROC: 0DB64Z3 Excision of Stomach, Percutaneous Endoscopic Approach, Vertical (ICD-10-PCS; CPT 43845; principal; 2024-10-04 07:30)
DX: E66.01 Morbid (severe) obesity due to excess calories (principal); E11.9 Type 2 diabetes mellitus without complications; F31.9 Bipolar disorder, unspecified; E03.9 Hypothyroidism, unspecified; G47.00 Insomnia, unspecified; M54.9 Dorsalgia, unspecified; K21.9 Gastro-esophageal reflux disease without esophagitis; K76.0 Fatty (change of) liver, not elsewhere classified; K74.00 Hepatic fibrosis, unspecified; Z87.891 Personal history of nicotine dependence; Z79.890 Hormone replacement therapy; Z79.899 Other long term (current) drug therapy; Z68.36 Body mass index [BMI] 36.0-36.9, adult
CPT/HCPCS: 36415; 80048; 80053; 80061; 81025; 82947; 83036; 83525; 84443; 85014; 85018; 85025; 85610; 85730; 86140; 86850; 86900; 86901; 88304; 88305; 88307; 88342; A4649; C9145; J0131; J0690; J1100; J1171; J1308; J1596; J2003; J2405; J2704; J2795; J3010; J7120

== ENCOUNTER → 2024-10-04 06:15 | Outpatient (BNV) | payer OTHER, SELFPAY | PROVIDERS: Admitting Provider Physician Assistant Surgical; PCP Pediatrics; Visit Provider Surgery | DX: E66.812 Obesity, class 2 (principal); E66.09 Other obesity due to excess calories; Z68.37 Body mass index [BMI] 37.0-37.9, adult; Z68.36 Body mass index [BMI] 36.0-36.9, adult; E11.9 Type 2 diabetes mellitus without complications; F31.9 Bipolar disorder, unspecified; F32.A Depression, unspecified; M54.9 Dorsalgia, unspecified; G47.00 Insomnia, unspecified; K21.9 Gastro-esophageal reflux disease without esophagitis; K74.00 Hepatic fibrosis, unspecified; E03.9 Hypothyroidism, unspecified | CPT/HCPCS: 43659; 43775; 99024; 99499 ==

== ENCOUNTER 2024-10-12 12:55 | Outpatient (AMB) | payer OTHER, SELFPAY ==
--- NOTE | 2024-10-12 13:03 | A.OFFVIS_ITS ---
VS Expanded 10/12/24 13:19 BP 119/61 Blood Pressure Location Rt brachial Blood Pressure Position Sitting Pulse 96 Pulse Source Pulse Oximeter Temp 98.0 F Temperature Source Temporal Artery Scan Pulse Oximetry 97 Oxygen Delivery Method Room Air Height 5 ft 6 in Weight 215 lb BMI 34.7 Body Fat % 40.2 Body Fat Mass 86.4 Fat Free Mass 128.6 Visceral Fat Rating 8.0 Body Water % 42.9 Body Water Mass 92.2 Muscle Mass/Score 122.2 Basal Metabolic Rate/Score 1,801 Intake Visit Reasons: (OV) PO LSG 10/04/24 Copy Writer Required: No Allergies fentanyl Allergy (Intermediate, Verified 10/04/24 06:33) rash from fentanyl patch sumatriptan (Imitrex) Allergy (Intermediate, Verified 10/04/24 06:33) chest pain HPI Comments Details: Patient is a pleasant 29-year-old female who returns to the office today in follow-up. She is 8 days post sleeve gastrectomy performed on 10/04/2024. Weight today is 215 lb with a BMI of 34.7. She is tolerating 8 oz premier protein ready to drink shake at 10-12, 2-4. And 1 entire ready to drink shake at6-9. She is having 40-50 oz of fluids. Moved her bowels. Denies any pain. [facility] Medical History (Updated 10/04/24 @ 09:45 by Michael Fuentes MD) Hypothyroidism Left leg numbness Ambulates with cane Fatty liver Anxiety Obesity Asthma Diabetes Insomnia Back pain Depression Bipolar 1 disorder Morbid obesity Surgical History (Updated 10/12/24 @ 13:05 by MARIAJOSE Hidalgo) History of surgery History of surgery Hx of tonsillectomy Hx of discectomy Family History Mother Depression Anxiety Father No problems noted. Social History Household Members: Significant Other Housing: Apartment Are you a primary customer care team coach to a significant other at home: No Do you presently have visiting nurse or other home services: No 75 years or older and lives alone: No Alcohol intake: current Alcohol intake frequency: holidays/special occasions only Patient Tobacco Use Status: Former Tobacco user Tobacco use type: Cigarette e-Cigarette/Vaping Use: Former Use Substance Use Type: Opiates service: No Physical Exam GI Other: She had removed her dressings in it inadvertently removed her Steri-Strips as well. Minor erythema without signs of infection, Steri-Strips were placed. Assessment & Plan Assessment & Plan (1) S/P laparoscopic sleeve gastrectomy: Code(s): Z98.84 - Bariatric surgery status Category: Surgical Plan: POD 8 s/p LSG on 10/04/[address] Fuentes Weight loss prior to surgery was 18 pounds or 7.2 % TBWL. Original weight on 05/25/2024 was 249.4 pounds and op weight was 231.4 pounds. Be sure to text Dr Fuentes exactly 1 week after surgery your weight from your home scale so he can adjust your meal plan. Continue meal plan until f/u terri Mcneal in 2 weeks May shower, no submersion in bath for another week Continue abdominal binder with activity and exercise for the next 2 weeks. Exercise prior to surgery was treadmill, stationary bike and may resume No abdominal exercises for 6 weeks post operatively Will be emailed link to post op video for review Reminded of the pace of drinking, 2 mL per minute, 1 oz/15 min.
[2024-10-12 13:19] VITALS: BP 119/61; PULSE 96; TEMP 36.7; O2SAT 97; BMI 34.7
--- OUTSIDE RECORDS SUMMARY | 2024-10-12 15:04 | XMS_ITS | Clinical Summary ---
Author Organization [address] Address [address] [place] [address] [place] [address] Phone Care Team Providers Care Governor Assembler Hydraulic Name Role Phone Vicki Miller MD Primary Care Provider [phone] Allergies Active Allergy Reactions Criticality Noted Date [...] Diagnosed Date Methadone maintenance therap y patient ([facility] [place], [facility]) 07/21/2019 Overview (01/14/2024): 07/21/2019 methadone 45-50mg [...] DX:Delib erate self-cutting Asthma DX:Asthma Bipolar disorder ([facility], [facility]) DX:Bipolar disorder ([facility]) Hypothyroidism DX:Hypothyroidis m Substance abuse ([facility], [facility] V28) DX:Substance abuse (HCC) Family History Medical [...] RESULTING AGENCY - 07/14/2022 6:25 AM EDT [id number] THINPREP PAP, IMAGED: NEGATIVE FOR SQUAMOUS INTRAEPITHELIAL [...] Result * Hepatitis C Screening (08/08/2011) Pathologist [facility] Hepatitis C Screening Abstracted us Historical Provider HEALTH MAINTENANCE Final Result from Last 3 Months or Most Recently Relevant to Health Maintenance Insurance [employer] MEDICARE Member Subscriber Plan / Payer (Ef fective 2023-Present) Name:Deanne Weathersica Relation to Subscriber:Self Name:Weathers Kalyn Payer ID:[id number] Group ID:[id number] Type:Not on file Address: [place] [address] [place] [phone] Care Teams Governor Assembler Hydraulic Relationship Specialty Start Date End Date Vicki Miller MD [address] [place] [address] , [address] [facility] Physician Associ D/B/A: [facility] FERMIN Diallo PCP - General Internal Medicine 06/13/14
== END 2024-10-12 13:50 | disposition home or self-care (01) ==
LOC: HO.HBS 12:56
PROVIDERS: PCP Pediatrics; Visit Provider Physician Assistant Surgical
DX: Z98.84 Bariatric surgery status (principal)
CPT/HCPCS: 99024

== ENCOUNTER → 2024-10-12 12:55 | Outpatient (BNVA) | payer OTHER, SELFPAY | PROVIDERS: PCP Pediatrics; Visit Provider Physician Assistant Surgical | DX: Z98.84 Bariatric surgery status (principal) | CPT/HCPCS: 99212 ==

== ENCOUNTER 2024-10-13 09:44 | Outpatient (AMB) | payer OTHER, SELFPAY ==
--- NOTE | 2024-10-13 09:30 | A.OFFWM_ITS ---
Intake Intake Visit Reasons: TV PO LSG 10/04/24 Allergies fentanyl Allergy (Intermediate, Verified 10/04/24 06:33) rash from fentanyl patch sumatriptan (Imitrex) Allergy (Intermediate, Verified 10/04/24 06:33) chest pain PFSH Medical History (Updated 10/13/24 @ 00:02 by Esme Loco) Hypothyroidism Left leg numbness Ambulates with cane Fatty liver Anxiety Obesity Asthma Diabetes Insomnia Back pain Depression Bipolar 1 disorder Morbid obesity Surgical History (Updated 10/12/24 @ 13:05 by MARIAJOSE Hidalgo) History of surgery History of surgery Hx of tonsillectomy Hx of discectomy Family History Mother Depression Anxiety Father No problems noted. Social History Household Members: Significant Other Housing: Apartment Are you a primary district manager primary care sales to a significant other at home: No Do you presently have visiting nurse or other home services: No 75 years or older and lives alone: No Alcohol intake: current Alcohol intake frequency: holidays/special occasions only Patient Tobacco Use Status: Former Tobacco user Tobacco use type: Cigarette e-Cigarette/Vaping Use: Former Use Substance Use Type: Opiates service: No Behavioral Health Assessment Weight Management Therapy Therapy Notes Details Subjective: Patient underwent weight loss surgery on October 04. Weight on the day of surgery was 218 lbs; as of October 13, 2024, weight is 215 lbs. Patient denies any pain or difficulties with recovery and reports she is tolerating the liquid diet well. She reports occasional hunger or food-related thoughts, especially in the morning or when fluid intake is insufficient. Mood is stable, and she reports feeling well with good energy levels. Her partner has been very supportive throughout the recovery process. Patient continues to engage in counseling, meeting with her therapist biweekly and with her prescriber every 1?3 months. She reports overall emotional stability. Objective: The patient presents for a behavioral health post-operative follow-up visit. A guided emotional check-in was conducted to assess her current functioning, recovery, mood, and emotional state. Psychoeducation was provided on the emotional and psychological adjustments commonly experienced after bariatric surgery. We also focused on distinguishing between hunger and cravings or food thoughts, exploring possible reasons for these experiences, and strategies to work on her mindset. Emphasis was placed on becoming mindful of her physical and mental needs during these times while staying on track. The PHQ-9 was administered to screen for symptoms of depression. The importance of adhering to the Weight Management Program (WMP) providers' instructions was emphasized, including the pace of drinking and following the meal and exercise plan. Tips and recommendations for long-term success were also discussed. Program resources were provided, and the patient was invited to join our Facebook group to stay informed about ongoing events and activities. Assessment/Response: * Mental status: WNL * Risk reported/identified: None Food/Weight/Diet Expectations of change The initial goal was to lose 10% of your weight before surgery, about 25 Lbs. The ultimate weight goal is 225 lbs before surgery. The initial weight was 249 Lbs, per the system's note. However, the client reports that it was 254 lbs on her records from the [facility] scale. Weight as of 07/03/2024: 246 Lbs Weight as of 08/07/2024: 238 Lbs Weight on day of surgery 10/04/2024: 218Lbs, and weight as of yesterday 10/13/2024: 215Lbs Target: 180 Lbs and go from there. PT is implementing the following: Current meal plan: Liquid plan. Exercise plan: Cleared yesterday. Scale: Yes. Communication with provider: Tuesdays. Questionnaires PHQ-9 Over the last 2 weeks, how often have you been bothered by any of the following problems? 1. Little interest or pleasure in doing things: not at all 2. Feeling down, depressed, or hopeless: not at all 3. Trouble falling or staying asleep, or sleeping too much: not at all 4. Feeling tired or having little energy: several days (Nothing new.) 5. Poor appetite or overeating: not at all 6. Feeling bad about yourself - or that you are a failure or have let yourself or your family down: not at all 7. Trouble concentrating on things, such as reading the newspaper or watching television: not at all 8. Moving or speaking so slowly that other people could have noticed. Or the opposite - being so fidgety or restless that you have been moving around a lot more than usual: several days (Fidgety.) 9. Thoughts that you would be better off or of hurting yourself in some way: not at all Total score: 2 Depression Screening Interpretation: Negative Depression Screening Done: Yes 96259 - PHQ-9 Billing: Yes Source: Developed by Drs. Pradeep Owusu, Sheron Dykes, Johnathan Maya and colleagues, with an educational frankie from [employer]. Assessment & Plan Assessment & Plan (1) Bipolar disorder, unspecified: Code(s): F31.9 - Bipolar disorder, unspecified (2) Generalized anxiety disorder: Code(s): F41.1 - Generalized anxiety disorder (3) Status post bariatric surgery: Code(s): Z98.84 - Bariatric surgery status Plan No safety concerns or issues were identified that would necessitate behavioral health monitoring. The patient declined further visits but is aware of the available behavioral health support if needed in the future. Telehealth Telehealth Telehealth Platform: [email or web address] Location of provider rendering services: other (Home office. [place], [place]) Location of patient: address on file Patient Identification confirmed using: Name, : Yes Telehealth method: voice only Patient verbally consented to treatment: Yes Patient verbally consented to billing insurance company: Yes Patient informed of any privacy concerns related to visit: Yes Minutes spent on Phone/Video with Pt.: 25 Coding Level of Care Code Established Pt Tele Psytx 30 mins (57854) Patient Type Established Diagnoses Bipolar disorder, unspecified F31.9 Generalized anxiety disorder F41.1 Status post bariatric surgery Z98.84 Additional Codes PHQ-9 - 17146 - PHQ-9 Billing: Yes ([id number]) Time Spent (min) 25
--- NOTE | 2024-10-13 09:33 | MHC.WMTHER ---
Intake Intake Visit Reasons: TV PO LSG 10/04/24 Allergies fentanyl Allergy (Intermediate, Verified 10/04/24 06:33) rash from fentanyl patch sumatriptan (Imitrex) Allergy (Intermediate, Verified 10/04/24 06:33) chest pain PFSH Medical History (Updated 10/13/24 @ 00:02 by Esme Loco) Hypothyroidism Left leg numbness Ambulates with cane Fatty liver Anxiety Obesity Asthma Diabetes Insomnia Back pain Depression Bipolar 1 disorder Morbid obesity Surgical History (Updated 10/12/24 @ 13:05 by MARIAJOSE Hidalgo) History of surgery History of surgery Hx of tonsillectomy Hx of discectomy Family History Mother Depression Anxiety Father No problems noted. Social History Household Members: Significant Other Housing: Apartment Are you a primary healthcare business analyst to a significant other at home: No Do you presently have visiting nurse or other home services: No 75 years or older and lives alone: No Alcohol intake: current Alcohol intake frequency: holidays/special occasions only Patient Tobacco Use Status: Former Tobacco user Tobacco use type: Cigarette e-Cigarette/Vaping Use: Former Use Substance Use Type: Opiates service: No Coding
--- OUTSIDE RECORDS SUMMARY | 2024-10-13 10:57 | XMS_ITS | Clinical Summary ---
Author Organization [address] Address [address] [place] [address] [place] [address] Phone Care Team Providers Care Er Manager Name Role Phone Vicki Miller MD Primary Care Provider [phone] Allergies Active Allergy Reactions Criticality Noted Date [...] Diagnosed Date Methadone maintenance therap y patient ([facility]24, [facility] V28) 07/21/2019 Overview (01/14/2024): 07/21/2019 methadone 45-50mg [...] DX:Delib erate self-cutting Asthma DX:Asthma Bipolar disorder ([facility] V24, [facility] V28) DX:Bipolar disorder ([facility]) Hypothyroidism DX:Hypothyroidis m Substance abuse ([facility] V24, [facility] V28) DX:Substance abuse (HCC) Family History Medical [...] RESULTING AGENCY - 07/14/2022 6:25 AM EDT [id number] THINPREP PAP, IMAGED: NEGATIVE FOR SQUAMOUS INTRAEPITHELIAL [...] Hepatitis C Screening (08/08/2011) Pathologist [facility] Hepatitis C Screening Abstracted us Historical Provider HEALTH MAINTENANCE Final Result from Last 3 Months or Most Recently Relevant to Health Maintenance Insurance [employer] MED[employer] Member Subscriber Plan / Payer (Ef fective 2023-Present) Name:Deanne Weathersica Relation to Subscriber:Self Name:Weathers Kalyn Payer ID:[id number] Group ID:[id number] Type:Not on file Address: [place] [address] [place] [phone] Care Teams Er Manager Relationship Specialty Start Date End Date Vicki Miller MD [address] [place] [address] , [address] [facility] Physician Associ D/B/A: [facility] FERMIN Diallo PCP - General Internal Medicine 06/13/14
== END 2024-10-13 10:10 | disposition home or self-care (01) ==
LOC: HO.HBST 09:44
PROVIDERS: PCP Pediatrics; Visit Provider Counselor Mental Health
DX: F31.9 Bipolar disorder, unspecified (principal); F41.1 Generalized anxiety disorder; Z98.84 Bariatric surgery status
CPT/HCPCS: 90832

== ENCOUNTER 2024-11-11 09:05 | Outpatient (AMB) | payer OTHER, SELFPAY ==
--- NOTE | 2024-11-11 09:10 | A.OFFVIS_ITS ---
VS Expanded 11/11/24 09:12 BP 133/63 Blood Pressure Location Rt brachial Blood Pressure Position Sitting Pulse 89 Pulse Source Pulse Oximeter Temp 98.0 F Temperature Source Temporal Artery Scan Pulse Oximetry 100 Oxygen Delivery Method Room Air Height 5 ft 6 in Weight 213 lb 9.6 oz BMI 34.5 Body Fat % 39.3 Body Fat Mass 83.8 Fat Free Mass 129.6 Visceral Fat Rating 8.0 Body Water % 43.6 Body Water Mass 93.0 Muscle Mass/Score 123.0 Basal Metabolic Rate/Score 1,811 Intake Visit Reasons: (OV) PO LSG 10/04/24 Block Stacker Required: No Allergies fentanyl Allergy (Intermediate, Verified 11/11/24 09:14) rash from fentanyl patch sumatriptan (Imitrex) Allergy (Intermediate, Verified 11/11/24 09:14) chest pain Medication List - Last Reconciled 11/11/24 by MARIAJOSE Hidalgo aripiprazole (Abilify) 30 mg PO BEDTIME duloxetine 60 mg PO DAILY levothyroxine 50 mcg PO DAILY methadone 40 mg PO DAILY pantoprazole 40 mg PO DAILY sucralfate 10 mL PO BID zolpidem (Ambien) 5 mg PO BEDTIME PRN HPI Comments Details: This?a?29?yo female who is s/p LSG without hiatal hernia repair on?10/04/2024. Presents for 1 month post op visit. Weight today is 213.2 pounds, with a BMI of 34.5. There has been a 35.8 pound weight loss,(initial weight 249.4 pounds) since starting the program on 05/25/2024 reflecting a 14.3 % total body weight loss and a weight loss of 17.8 pounds since surgery (operative weight 231.4 pounds) reflecting a 7.6 % TBWL since surgery. No complaints of nausea, emesis, abdominal pain or reflux. Reports infrequent but normal bowel movements every 2- 3 days and uses stool softeners regularly. Present meal plan includes: Premier protein rtd 4 oz w 4 oz almond milk, 8-10, 2-4 fit crunch bar 11-1, 7-9 meal at 5 with 3 forks protein and 3 forks veg 60 oz water daily? Exercise routine includes: was in [place] week. last few days stationary bike (100-150 mary ann) and treadmill (150-200 mary ann), [facility] Medical History Hypothyroidism Left leg numbness Ambulates with cane Fatty liver Anxiety Obesity Asthma Diabetes Insomnia Back pain Depression Bipolar 1 disorder Morbid obesity Surgical History History of surgery History of surgery Hx of tonsillectomy Hx of discectomy Family History Mother Depression Anxiety Father No problems noted. Social History Household Members: Significant Other Housing: Apartment Are you a primary child care team lead to a significant other at home: No Do you presently have visiting nurse or other home services: No 75 years or older and lives alone: No Alcohol intake: current Alcohol intake frequency: holidays/special occasions only Patient Tobacco Use Status: Former Tobacco user Tobacco use type: Cigarette e-Cigarette/Vaping Use: Former Use Substance Use Type: Opiates service: No Physical Exam Vital Signs: Last Vital Signs Temp 98.0 F 11/11/24 09:12 Pulse 89 11/11/24 09:12 BP 133/63 11/11/24 09:12 Pulse Ox 100 11/11/24 09:12 Oxygen Delivery Method Room Air 11/11/24 09:12 BMI result Body Mass Index 34.5 Const General: healthy appearing and no acute distress Resp Effort & Inspection: normal respiratory effort Auscultation: clear to auscultation bilaterally Cardio Rate: regular rate Rhythm: regular rhythm GI Auscultation: normal bowel sounds Extrem General: Yes normal to inspection Assessment & Plan Assessment & Plan (1) S/P laparoscopic sleeve gastrectomy: Code(s): Z98.84 - Bariatric surgery status Category: Surgical Plan: Discussed the importance of consistent exercise. Goal of 400 calories burned per session, split between 2 sessions per day on the stationary bike and treadmill respectively. She will continue with her meal plan as directed by Dr. Fuentes. Continue to communicate weekly. Return to the clinic 1 month
[2024-11-11 09:12] VITALS: BP 133/63; PULSE 89; TEMP 36.7; O2SAT 100; BMI 34.5
--- OUTSIDE RECORDS SUMMARY | 2024-11-11 09:21 | XMS_ITS | Clinical Summary ---
Author Organization [address] Address [address] [place] [address] [place] [address] Phone Care Team Providers Care Chief Media Officer Name Role Phone Vicki Miller MD Primary Care Provider [phone] Allergies Active Allergy Reactions Criticality Noted Date [...] by mouth daily for 360 days. 4 Active FLUoxetine (PROzac) 10 mg capsule TAKE [...] Diagnosed Date Methadone maintenance therap y patient ([facility], [facility]) 07/21/2019 Overview (01/14/2024): 07/21/2019 methadone 45-50mg [...] DX:Delib erate self-cutting Asthma DX:Asthma Bipolar disorder ([facility] V[facility], [facility] V[facility]) DX:Bipolar disorder ([facility]) Hypothyroidism DX:Hypothyroidis m Substance abuse ([facility] V[facility], [facility] V28) DX:Substance abuse (HCC) Family History Medical [...] 5 Years) and At-Risk Patients (6 to 49 Years) (1 of 2 - PCV) 2012 Cholesterol Screening (Lipid Panel) 03/30/2022 11/18/2011 Medicare Annual Wellness Visit 03/30/2022 Social Influencers of Health Screening 03/30/2022 COVID-19 Vaccine ( season) 2023 06/28/2023, 10/02/2020, 09/04/2020 Depression Screening 04/20/2024 Influenza Vaccine (#1) 2024 , 03/17/2023, 03/11/2021, Additional history exists Cervical Cancer Screening: Pap Smear 07/02/2025 07/02/2022, 07/02/2022 DTaP,Tdap,and Td Vaccines (2 - Td or Tdap) 07/20/2031 07/19/2021 HIV Screening Completed 08/08/2011 Hepatitis C Screening Completed 08/08/2011 HIB Vaccines Aged Out No longer eligi [...] RESULTING AGENCY - 07/14/2022 6:25 AM EDT [id number] THINPREP PAP, IMAGED: NEGATIVE FOR SQUAMOUS INTRAEPITHELIAL [...] * HIV Screening (08/08/2011) HIV Screening Abstracted us Historical Provider HEALTH MAINTENANCE Final Result * Hepatitis C Screening (08/08/2011) Hepatitis C Screening Abstracted us Historical Provider HEALTH MAINTENANCE Final Result from Last 3 Months or Most Recently Relevant to Health Maintenance Insurance [employer] MED[employer] Member Subscriber Plan / Payer (Ef fective 2023-Present) Name:NELLIE WEATHERSSSICA Relation to Subscriber:Self Name:Daniella Weathers Payer ID:[id number] Group ID:[id number] Type:Not on file Address: [place] [address] [place] [phone] Care Teams Chief Media Officer Relationship Specialty Start Date End Date Vicki Miller MD [address] [place] [address] , [address] [facility] Physician Associ D/B/A: [facility] FERMIN Diallo PCP - General Internal Medicine 06/13/14
== END 2024-11-11 09:31 | disposition home or self-care (01) ==
LOC: HO.HBS 09:06
PROVIDERS: PCP Pediatrics; Visit Provider Physician Assistant Surgical
DX: Z98.84 Bariatric surgery status (principal)
CPT/HCPCS: 99024

== ENCOUNTER → 2024-11-11 09:05 | Outpatient (BNVA) | payer OTHER, SELFPAY | PROVIDERS: PCP Pediatrics; Visit Provider Physician Assistant Surgical | DX: Z48.815 Encounter for surgical aftercare following surgery on the digestive system (principal); Z98.84 Bariatric surgery status | CPT/HCPCS: 99212 ==

== ENCOUNTER 2024-12-16 11:27 | Outpatient (AMB) | payer OTHER, SELFPAY ==
--- NOTE | 2024-12-16 11:32 | A.OFFVIS_ITS ---
VS Expanded 12/16/24 11:41 BP 142/63 H Blood Pressure Location Rt brachial Blood Pressure Position Sitting Pulse 96 Pulse Source Pulse Oximeter Temp 98.8 F Temperature Source Temporal Artery Scan Pulse Oximetry 96 Oxygen Delivery Method Room Air Height 5 ft 6 in Weight 207 lb 12.8 oz BMI 33.5 Body Fat % 37.3 Body Fat Mass 77.4 Fat Free Mass 130.2 Visceral Fat Rating 7.0 Body Water % 45.0 Body Water Mass 93.4 Muscle Mass/Score 123.6 Basal Metabolic Rate/Score 1,808 Intake Visit Reasons: (OV) PO LSG 10/04/24 Allergies fentanyl Allergy (Intermediate, Verified 12/16/24 11:42) rash from fentanyl patch sumatriptan (Imitrex) Allergy (Intermediate, Verified 12/16/24 11:42) chest pain HPI Comments Details: This?a?29?yo female who is s/p LSG without hiatal hernia repair on?10/04/2024. Presents for 2 month post op visit. Weight today is 207.8 pounds, with a BMI of 33.5. There has been a 41.6 pound weight loss,(initial weight 249.4 pounds) since starting the program on 05/25/2024 reflecting a 16.6 % total body weight loss and a weight loss of 23.6 pounds since surgery (operative weight 231.4 pounds) reflecting a 10.1 % TBWL since surgery. No complaints of nausea, emesis, abdominal pain or reflux. Reports infrequent but normal bowel movements every 2-3 days and uses stool softeners regularly. She states that since last visit, she did have her menstrual cycle and had a little bit more to eat and drink than typical. She had been exercising quite regularly but due to some dietary indiscretions she did not lose as much as she wanted to. Present meal plan includes: Premier protein rtd 4 oz w 4 oz almond milk, 8-10, 2-4 fit crunch bar 11-1, 7-9 meal at 5 with 3 forks protein and 3 forks veg 60 oz water daily? Exercise routine includes: treadmill 6-7 days per week (350-400 mary ann split between 2 sessions), speed 3- 3.5, incline 10-12 PFSH Medical History Hypothyroidism Left leg numbness Ambulates with cane Fatty liver Anxiety Obesity Asthma Diabetes Insomnia Back pain Depression Bipolar 1 disorder Morbid obesity Surgical History History of surgery History of surgery Hx of tonsillectomy Hx of discectomy Family History Mother Depression Anxiety Father No problems noted. Social History Household Members: Significant Other Housing: Apartment Are you a primary companion caregiver to a significant other at home: No Do you presently have visiting nurse or other home services: No 75 years or older and lives alone: No Alcohol intake: current Alcohol intake frequency: holidays/special occasions only Patient Tobacco Use Status: Former Tobacco user Tobacco use type: Cigarette e-Cigarette/Vaping Use: Former Use Substance Use Type: Opiates service: No Physical Exam Vital Signs: Last Vital Signs Temp 98.8 F 12/16/24 11:41 Pulse 96 12/16/24 11:41 BP 142/63 H 12/16/24 11:41 Pulse Ox 96 12/16/24 11:41 Oxygen Delivery Method Room Air 12/16/24 11:41 BMI result Body Mass Index 33.5 Const General: healthy appearing and no acute distress Resp Effort & Inspection: normal respiratory effort Auscultation: clear to auscultation bilaterally Cardio Rate: regular rate Rhythm: regular rhythm GI Auscultation: normal bowel sounds Extrem General: Yes normal to inspection Assessment & Plan Assessment & Plan (1) S/P laparoscopic sleeve gastrectomy: Code(s): Z98.84 - Bariatric surgery status Category: Surgical Plan: Patient is following the meal plan as directed by Dr. Fuentes. She is exercising although made some recommendations to improve that. She does split her routine, 200 calories, 150 calories. Recommended trying to increase her endurance by way of increasing calories burned per session. Goal of 400-450 calories burned per day with an ultimate goal of 400 calories in 1 session. She will continue to communicate with Dr. Fuentes. She did report feelings of disappointment during her menstrual cycle with her eating habits and requested a follow-up appointment with behavioral health. Return to the office as scheduled.
[2024-12-16 11:41] VITALS: BP 142/63; PULSE 96; TEMP 37.1; O2SAT 96; BMI 33.5
--- OUTSIDE RECORDS SUMMARY | 2024-12-16 12:29 | XMS_ITS | Clinical Summary ---
Author Organization [address] Address [address] [place] [address] [place] [address] Phone Care Team Providers Care Efficiency Miner Name Role Phone Vicki Miller MD Primary Care Provider [phone] Allergies Active Allergy Reactions Criticality Noted Date [...] Diagnosed Date Methadone maintenance therap y patient ([facility] [place], [facility]28) 07/21/2019 Overview (01/14/2024): 07/21/2019 methadone 45-50mg [...] DX:Delib erate self-cutting Asthma DX:Asthma Bipolar disorder ([facility], [facility] V28) DX:Bipolar disorder ([facility]) Hypothyroidism DX:Hypothyroidis m Substance abuse ([facility] V24, [facility] V28) DX:Substance abuse (HCC) Family History Medical [...] RESULTING AGENCY - 07/14/2022 6:25 AM EDT [id number] THINPREP PAP, IMAGED: NEGATIVE FOR SQUAMOUS INTRAEPITHELIAL [...] ID:[id number] Group ID:[id number] Type:Not on file Address: [place] [address] [place] [phone] Care Teams Efficiency Miner Relationship Specialty Start Date End Date Vicki Miller MD [address] [place] [address] , [address] [facility] Physician Associ D/B/A: [facility] FERMIN Diallo PCP - General Internal Medicine 06/13/14
== END 2024-12-16 12:08 | disposition home or self-care (01) ==
LOC: HO.HBS 11:28
PROVIDERS: PCP Pediatrics; Visit Provider Physician Assistant Surgical
DX: Z98.84 Bariatric surgery status (principal)
CPT/HCPCS: 99024

== ENCOUNTER → 2024-12-16 11:27 | Outpatient (BNVA) | payer OTHER, SELFPAY | PROVIDERS: PCP Pediatrics; Visit Provider Physician Assistant Surgical | DX: E66.9 Obesity, unspecified (principal); Z68.33 Body mass index [BMI] 33.0-33.9, adult; Z90.3 Acquired absence of stomach [part of] | CPT/HCPCS: 99212 ==

== ENCOUNTER 2024-12-29 13:15 | Outpatient (AMB) | payer OTHER, SELFPAY ==
--- NOTE | 2024-12-29 13:05 | A.OFFWM_ITS ---
Intake Intake Visit Reasons: TV PO LSG 10/04/24 Allergies fentanyl Allergy (Intermediate, Verified 12/16/24 11:42) rash from fentanyl patch sumatriptan (Imitrex) Allergy (Intermediate, Verified 12/16/24 11:42) chest pain PFSH Medical History Hypothyroidism Left leg numbness Ambulates with cane Fatty liver Anxiety Obesity Asthma Diabetes Insomnia Back pain Depression Bipolar 1 disorder Morbid obesity Surgical History History of surgery History of surgery Hx of tonsillectomy Hx of discectomy Family History Mother Depression Anxiety Father No problems noted. Social History Household Members: Significant Other Housing: Apartment Are you a primary critical care transport nurse to a significant other at home: No Do you presently have visiting nurse or other home services: No 75 years or older and lives alone: No Alcohol intake: current Alcohol intake frequency: holidays/special occasions only Patient Tobacco Use Status: Former Tobacco user Tobacco use type: Cigarette e-Cigarette/Vaping Use: Former Use Substance Use Type: Opiates service: No Behavioral Health Assessment Weight Management Therapy Therapy Notes Details Subjective: Patient is post-bariatric surgery (September). She was seen by JESUS a couple of weeks ago and requested a behavioral health appointment after noticing increased moodiness and difficulty losing weight prior to her menstrual period. She reported a 5 lb weight gain before her period, followed by a 6 lb loss after her period. She also noted increased hunger around her menstrual cycle. Patient reports being discharged from counseling due to stability and will continue follow-up with her prescriber. Most recent weight 205Lbs Objective: Patient presents for a behavioral health post-operative follow-up visit via telehealth. She is approximately three months post-bariatric surgery. Patient is alert, oriented, and engaged throughout the session. She reports adherence to her current meal and exercise plan, with recent fluctuations in weight and mood related to her menstrual cycle. No acute distress or safety concerns noted. Interventions Provided: * Reviewed and practiced self-talk techniques and strategies to manage negative emotional responses during periods of frustration. * Provided a journal to support self-monitoring and reflection throughout her weight-loss journey. * Encouraged ongoing participation in peer support groups and facilitated access to a relevant Facebook group; provider texted her the link and information on upcoming meetings. * Discussed the use of a daily mood and hunger tracking tool to help identify patterns and triggers, and to support ongoing behavioral adjustments. Assessment/Response: * Mental status: WNL * Risk reported/identified: None. Food/Weight/Diet Expectations of change The initial goal was to lose 10% of your weight before surgery, about 25 Lbs. The ultimate weight goal is 225 lbs before surgery. The initial weight was 249 Lbs, per the system's note. However, the client reports that it was 254 lbs on her records from the [facility] scale. Weight as of 07/03/2024: 246 Lbs Weight as of 08/07/2024: 238 Lbs Weight on day of surgery 10/04/2024: 218Lbs, and weight as of yesterday 10/13/2024: 215Lbs Target: 180 Lbs and go from there. PT is implementing the following: Current meal plan: 2 shakes, 2 bars, 1 small meal daily Exercise plan: 300?400 calories burned per day Scale: Yes. Communication with provider: Tuesdays. Assessment & Plan Assessment & Plan (1) Bipolar disorder, unspecified: Code(s): F31.9 - Bipolar disorder, unspecified (2) Generalized anxiety disorder: Code(s): F41.1 - Generalized anxiety disorder Plan F/up in 1 month for support. Next shamika: 01/26/25 at 11 am, phone visit. Telehealth Telehealth Telehealth Platform: [employer] Location of provider rendering services: other (Home office. [place], [place]) Location of patient: address on file Patient Identification confirmed using: Name, : Yes Telehealth method: voice only Patient verbally consented to treatment: Yes Patient verbally consented to billing insurance company: Yes Patient informed of any privacy concerns related to visit: Yes Minutes spent on Phone/Video with Pt.: 45 Coding Level of Care Code Established Pt Tele Psytx 45 mins (73270) Patient Type Established Diagnoses Bipolar disorder, unspecified F31.9 Generalized anxiety disorder F41.1 Time Spent (min) 45
== END 2024-12-29 14:08 | disposition home or self-care (01) ==
LOC: HO.HBST 13:15
PROVIDERS: PCP Pediatrics; Visit Provider Counselor Mental Health
DX: F31.9 Bipolar disorder, unspecified (principal); F41.1 Generalized anxiety disorder
CPT/HCPCS: 90834

== ENCOUNTER 2025-01-26 11:15 | Outpatient (AMB) | payer OTHER, SELFPAY ==
--- NOTE | 2025-01-26 11:15 | A.OFFWM_ITS ---
Intake Intake Visit Reasons: TV PO LSG 10/04/24 Allergies fentanyl Allergy (Intermediate, Verified 12/16/24 11:42) rash from fentanyl patch sumatriptan (Imitrex) Allergy (Intermediate, Verified 12/16/24 11:42) chest pain PFSH Medical History Hypothyroidism Left leg numbness Ambulates with cane Fatty liver Anxiety Obesity Asthma Diabetes Insomnia Back pain Depression Bipolar 1 disorder Morbid obesity Surgical History History of surgery History of surgery Hx of tonsillectomy Hx of discectomy Family History Mother Depression Anxiety Father No problems noted. Social History Household Members: Significant Other Housing: Apartment Are you a primary professional healthcare representative to a significant other at home: No Do you presently have visiting nurse or other home services: No 75 years or older and lives alone: No Alcohol intake: current Alcohol intake frequency: holidays/special occasions only Patient Tobacco Use Status: Former Tobacco user Tobacco use type: Cigarette e-Cigarette/Vaping Use: Former Use Substance Use Type: Opiates service: No Behavioral Health Assessment Weight Management Therapy Therapy Notes Details Subjective: Patient was last seen approximately one month ago and reports significant improvement in mood, with less discouragement compared to previous visits. She states that her home environment is stable and supportive. Patient weighed herself last week and noted a weight of 201 lbs. She recently underwent surgery, which has temporarily limited her ability to exercise. Patient is considering returning to school to make productive use of her free time, as she is currently disabled and has substantial unstructured time. Regarding medications, she is gradually tapering Methadone and is currently at 31 mg daily. She continues to take Abilify 30 mg daily and Duloxetine 60 mg daily. Her PCP will manage her Ambien 5 mg prescription; she reports using it only a couple of times per week as needed for sleep. Objective: Patient presents for a behavioral health post-operative appointment. She is processing her emotions, particularly when interacting with individuals not undergoing similar experiences. Explored strategies to increase activity levels and address feelings of boredom or unstructured time. Developed a behavioral activation plan. Discussed the importance of cultivating discipline and routine, rather than relying solely on motivation. Recommended participation in peer support groups for additional social and emotional support. Assessment/Response: * Mental status: WNL * Risk reported/identified: None. Assessment & Plan Assessment & Plan (1) Bipolar disorder, unspecified: Code(s): F31.9 - Bipolar disorder, unspecified (2) Generalized anxiety disorder: Code(s): F41.1 - Generalized anxiety disorder Plan -Continue current medication regimen and behavioral activation strategies. Advised PT to ask her provider about the use of magnesium, HONG and L-theanine for sleep and anxiety. -Encourage participation in peer support groups. -Follow up in 1 month for continued behavioral health support. Next appointment scheduled for 02/23/25 at 10:00 am (phone call). Telehealth Telehealth Telehealth Platform: [employer] Location of provider rendering services: other (Home office. [place], [place]) Location of patient: address on file Patient Identification confirmed using: Name, : Yes Telehealth method: voice only Patient verbally consented to treatment: Yes Patient verbally consented to billing insurance company: Yes Patient informed of any privacy concerns related to visit: Yes Minutes spent on Phone/Video with Pt.: 45 Coding Level of Care Code Established Pt Tele Psytx 45 mins ([id number]) Patient Type Established Diagnoses Bipolar disorder, unspecified F31.9 Generalized anxiety disorder F41.1 Time Spent (min) 45
== END 2025-01-26 12:07 | disposition home or self-care (01) ==
LOC: HO.HBST 11:15
PROVIDERS: PCP Pediatrics; Visit Provider Counselor Mental Health
DX: F31.9 Bipolar disorder, unspecified (principal); F41.1 Generalized anxiety disorder
CPT/HCPCS: 90834

== ENCOUNTER 2025-02-20 07:36 | Outpatient (REF) | payer OTHER, SELFPAY ==
--- OUTSIDE RECORDS SUMMARY | 2025-02-20 07:40 | XMS_ITS | Encounter Summary ---
Author Organization [facility] Address [address] [place] [address] Care Team Providers Care Z Os Mainframe Systems Programmer Name Role Phone Vicki Miller MD Primary Care Provider [phone] Reason for Referral * Consultation (Routine) - Authorized Specialty Diagnoses / Procedures Referred By Goldie judge Referred To Contact Breast Surgery Diagnoses Family history of breast cancer Lolis Clement CNM [address] [place] [phone] Phone: tel: fax: [facility] [address] [address] Phone: tel: fax: Referral ID Status Reason Start Date Expiration Date Visits Requested Visits Authorized [id number] Authorized Specialty Services Required 01/24/2025 01/24/2026 1 1 Reason for Visit * Reason Onset Date Comments Request For Order(s) 01/24/2025 Encounter Details Date Type Department Care Team (Late st Contact Info) Description 01/24/2025 Telephone Obstetrics and Gynecology [facility] [address] [place] [address] Lolis Clement CNM [address] [place] [phone] Social History Tobacco Use Types Packs/Day Years Used Date Smoking Tobacco: Some Days Smokeless Tobacco: Never Alcohol Use Standard Drinks/Week Comments No 0 (1 standard drink = 0.6 oz pur e alcohol) Comments Unknown Sex and Gender Information Value Date Recorded Sex Assigned at Not on file Legal Sex Female 6:52 AM EST Gender Identity Not on file Sexual Orientation Not on file documented as of this encounter Progress Notes * Lolis Clement CNM - 01/24/2025 9:58 AM EDT I would recommend referral to Breast Care which I have placed. They will formulate the best plan ofcare for her. Can you ask pt if that would be acceptable to her? * Jenniffer Armijo RN - 01/24/2025 9:31 AM EDT Spoke with patient-both her grandmothers had breast cancer-one diagnosed in her 50s-the other she is unsure about -but in her 50s-it had spread to her brain. Her mother was in her early 40s-42-43, and her aunt on paternal side was 42 , another one on paternal was 45. Patient has strong historyof breast cancer. Will send message [facility] to see if pt should have early mammogram ordered for strong family history of breast cancer. * Daphney Barbosa - 01/24/2025 9:20 AM EDT Chief Complaint/problem: patient calling in to request a mammogram order be placed for her - she has a strong family history of breast cancer. Please advise How long has the patient had this problem? - Pt???s [employer] provider: Lolis Clement CNM Last menstrual period (LMP) or EDC (due date): - documented in this encounter Plan of Treatment Upcoming Encounters Date Type Department Care Team (Late st Contact Info) Description 06/07/2025 2:15 PM EST Consult [facility] [address] [phone] Aurelia Rodgers MD [address] [place] [phone] Scheduled Referrals Name Type Priority Associated Diagnoses Order Schedule Ambulatory referral to Breast Clinic Outpatient Referral Routine Family history of breast cancer 1 Occurrences starting 01/24/2025 until 01/24/2026 documented as of this encounter Visit Diagnoses Diagnosis Family history of breast cancer- Primary Family history of malignant neoplasm of breast documented in this encounter Care Teams Z [employer] Mainframe Systems Programmer Relationship Specialty Start Date End Date Vicki Miller MD [address] [place] [address] , [address] [facility] D/B/A: [facility] PCP - General Internal Medicine 06/13/14 documented as of this encounter
--- OUTSIDE RECORDS SUMMARY | 2025-02-20 07:40 | XMS_ITS | Clinical Summary ---
Author Organization [address] Address [address] [place] [address] [place] [address] Phone Care Team Providers Care Heat Regulator Name Role Phone Vicki Miller MD Primary Care Provider [phone] Allergies Active Allergy Reactions Criticality Noted Date [...] Active Problems Problem Noted Date Diagnosed Date Family history of breast cancer 01/24/2025 Overview (01/24/2025): Referred to Breast Clinic Methadone maintenance therapy patient 07/21/2019 Overview (01/14/2024): 07/21/2019 methadone 45-50mg [employer] Depression 08/29/2011 Lumbago 08/05/2011 Post laminectomy syndrome 08/05/2011 Radiculitis, lumbosacral 08/05/2011 Encounters Date Type Department Care Team Description 01/24/2025 Telephone Obstetrics and Gynecology [place] [address] [place] [phone] Lolis Clement CNM from Last 3 Months Immunizations Immunization Administration Dates Next Due Influenza trivalent, with pr eservative (Fluzone; Afluria) 6mo and older 01/07/2012 Surgical History Surgery Date Site/Laterality Comments BACK SURGERY PROCEDURE: HISTORICAL BACK SURGERY; COMMENT: 04/2011 Medical History Medical History Date Comments Deliberate self-cutting DX:Delib erate self-cutting Asthma DX:Asthma [facility] ([facility]) DX:Bipolar disorder (HCC) Hypothyroidism DX:Hypothyroidis m Substance abuse (CMS/HCC V24, [facility] V28) DX:Substance abuse (HCC) Family History Medical [...] 05/19/2024 1:24 PM EST Plan of Treatment Upcoming Encounters Date Type Department Care Team (Late st Contact Info) Description 06/07/2025 2:15 PM EST Consult Breast Care [address] [phone] Aurelia Rodgers MD [address] [place] [phone] Health Maintenance Due Date Last Done Comments Hepatitis A Vaccines (1 of 2 - Risk 2-dose series) 2012 Hepatitis B Vaccines (1 of 3 - 19+ 3-dose series) 2012 Pneumococcal Vaccine: Pediatrics (0 to 5 Years) and At-Risk Patients (6 to 49 Years) (1 of 2 - PCV) 2012 HPV Vaccines (1 - 3-dose SCDM series) 2020 Cholesterol Screening (Lipid Panel) 03/30/2022 11/18/2011 Medicare Annual Wellness Visit 03/30/2022 Social Influencers of Health Screening 03/30/2022 Depression Screening 04/20/2024 COVID-19 Vaccine ( season) 2024 06/28/2023, 10/02/2020, 09/04/2020 Influenza Vaccine (#1) 2024 , 03/17/2023, 03/11/2021, Additional history exists Cervical Cancer Screening: Pap Smear 07/02/2025 07/02/2022, 07/02/2022 DTaP,Tdap,and Td Vaccines (2 - Td or Tdap) 07/20/2031 07/19/2021 RSV Immunization Adult Patients (1 - 1-dose 75+ series) 2068 HIV Screening Completed 08/08/2011 Hepatitis C Screening [...] RESULTING AGENCY - 07/14/2022 6:25 AM EDT [id number] THINPREP PAP, IMAGED: NEGATIVE FOR SQUAMOUS INTRAEPITHELIAL LESION AND MALIGNANCY . ORION CELESTIN(ASCP) (CASE ELECTRONICALLY SIGNED 07 12 2022) ADEQUACY: SATISFACTORY ENDOCERVICAL/TRANSFORMATION ZONE COMPONENT PRESENT. SOURCE: THINPREP PAP HPV IF ASCUS, CERVICAL, IMAGED CLINICAL INFORMATION: HPV IF DIAGNOSIS OF ASCUS. PAP HX NEGATIVE, [Z01.419] us Ursula [facility] LAB CYTOLOGY ORDERABLES Final R esult HISTORICAL TESTING LAB RESULTING AGENCY * (ABNORMAL) Lipid panel (11/18/2011) Pathologist [facility] LDL/HDL Ratio 4 0 - 4 Triglycerides 243(A) 0 - 150 mg/dL Cholesterol 193 0 - 200 mg/dL HDL 52 >=40 mg/dL LDL Cholesterol 93(A) 0 - 10 mg/dL Blood Venous blood specimen / Unknown Historical Provider LAB BLOOD ORDERABLES Emily l Result * HIV Screening (08/08/2011) Pathologist [facility] HIV Screening Abstracted Historical Provider HEALTH MAINTENANCE Final Result * Hepatitis C Screening (08/08/2011) Pathologist [facility] Hepatitis C Screening Abstracted [facility] Provider HEALTH MAINTENANCE Final Result from Last 3 Months or Most Recently Relevant to Health Maintenance Insurance [employer] MEDICARE Member Subscriber Plan / Payer (Ef fective 2023-Present) Name:DANIELLA WEATHERS Relation to Subscriber:Self Name:Daniella Weathers Payer ID:[id number] Group ID:[id number] Type:Not on file Address: [place] [address] [place] [phone] Care Teams Heat Regulator Relationship Specialty Start Date End Date Vicki Miller MD [address] [place] [address] , [address] Physician Associ D/B/A: [facility] FERMIN Diallo PCP - General Internal Medicine 06/13/14
[2025-02-20 07:53] LABS: MANUAL DIFF FLAG NO
[2025-02-20 08:20] LABS: Hematocrit 40.5 % (37.0-47.0); Hemoglobin 13.1 g/dl (12.0-16.0); Imm Gran Abs Auto 0.01 X10*3/uL (0.00-0.03); Imm Gran Pct Auto 0.2 % (0.0-0.4); Lymphocytes Absolute Auto 1.7 X10*3/uL (1.2-4.9); Mean Corpuscular HGB Conc 32.3 g/dl (31.0-35.0); Mean Corpuscular Hemoglobin 27.4 pg (27.0-33.0); Mean Corpuscular Volume 84.7 fL (80.0-98.0); NRBC Abs Auto 0.000 X10*3/uL (0.0-0.012); NRBC Pct Auto 0.0 /100WBC (0.0-0.2); Platelet Count 241 X10*3/uL (160-400); Red Blood Count 4.78 X10*6/uL (4.20-5.50); White Blood Count 5.8 X10*3/uL (4.8-10.8)
[2025-02-20 08:32] LABS: Total Hemoglobin (HGBA1C) 3390.2396 umol/L
[2025-02-20 08:56] LABS: Alanine Aminotransferase 23 U/L (0-31); Albumin Level 4.4 g/dL (3.5-5.0); Alkaline Phosphatase 93 U/L (39-117); Anion Gap 11 (12-20); Aspartate Amino Transferase 25 U/L (5-31); Blood Urea Nitrogen 13 mg/dL (9-16); Calcium 9.4 mg/dL (8.4-10.2); Carbon Dioxide 29 mmol/L (22-29); Chloride 102 mmol/L (96-108); Cholesterol 206 mg/dL (<200); Estimated Glomerular Filt Rate > 60; HDL Cholesterol 52 mg/dL (>40); Iron 83 mcg/dL (30-160); Percent Iron Saturation 26 % (15-50); Potassium 4.3 mmol/L (3.3-5.1); Sodium 138 mmol/L (135-145); Total Iron Binding Capacity 323 mcg/dL (228-428); Total Protein 7.3 g/dL (6.5-8.0); Triglycerides 134 mg/dL (<150); Unsaturated Iron Binding 240 ug/dL
[2025-02-20 09:16] LABS: Ferritin 28 ng/mL (10-122)
[2025-02-20 09:23] LABS: Folate 4.1 ng/mL (> or = 4.0); Vitamin B12 537 pg/mL (200-900)
== END 2025-02-20 07:37 | disposition home or self-care (01) ==
LOC: HO.LAB 07:36
PROVIDERS: PCP Pediatrics; Visit Provider Surgery
DX: E11.9 Type 2 diabetes mellitus without complications (principal); E03.9 Hypothyroidism, unspecified; E66.812 Obesity, class 2; Z68.37 Body mass index [BMI] 37.0-37.9, adult
CPT/HCPCS: 36415; 80053; 80061; 82306; 82607; 82728; 82746; 83036; 83525; 83540; 84425; 84443; 84590; 84630; 85025; 86140

== ENCOUNTER 2025-02-23 10:14 | Outpatient (AMB) | payer OTHER, SELFPAY ==
--- NOTE | 2025-02-23 10:05 | A.OFFWM_ITS ---
Intake Intake Visit Reasons: TV PO LSG 10/04/24 Allergies fentanyl Allergy (Intermediate, Verified 12/16/24 11:42) rash from fentanyl patch sumatriptan (Imitrex) Allergy (Intermediate, Verified 12/16/24 11:42) chest pain PFSH Medical History Hypothyroidism Left leg numbness Ambulates with cane Fatty liver Anxiety Obesity Asthma Diabetes Insomnia Back pain Depression Bipolar 1 disorder Morbid obesity Surgical History History of surgery History of surgery Hx of tonsillectomy Hx of discectomy Family History Mother Depression Anxiety Father No problems noted. Social History Household Members: Significant Other Housing: Apartment Are you a primary day care director to a significant other at home: No Do you presently have visiting nurse or other home services: No Alcohol intake: current Alcohol intake frequency: holidays/special occasions only Patient Tobacco Use Status: Former Tobacco user Tobacco use type: Cigarette e-Cigarette/Vaping Use: Former Use Substance Use Type: Opiates service: No Behavioral Health Assessment Weight Management Therapy Therapy Notes Details Subjective: Patient reports that this time of year is particularly challenging, describing increased fatigue and feeling drained. She has not lost weight but is maintaining her current weight. Recently, she participated in a walk to support suicide prevention. She also underwent an ear procedure over a month ago, which went well, but required her to pause her exercise routine, leading to feeling off track. Current weight: 202 lbs. Objective: Patient presents for a follow-up visit via telephone. * Discussed current functioning and symptoms consistent with seasonal affective changes. * Provided psychoeducation on seasonal affective disorder and mood symptoms, including the impact of reduced daylight and strategies for coping. * Collaboratively developed a behavioral activation plan to increase engagement in enjoyable and meaningful activities, starting today. * Reviewed and encouraged the use of previously effective coping strategies, such as journaling, and identified additional daily activities to support mood and structure. * Introduced cognitive restructuring techniques to help identify and challenge negative automatic thoughts related to fatigue and motivation. * Practiced goal-setting and problem-solving skills to address barriers to resuming her exercise routine. * Encouraged use of activity scheduling and monitoring to increase accountability and track progress. * Reinforced the importance of self-compassion and realistic expectations during recovery from her recent procedure. Assessment/Response: * Mental status: Patient is alert and oriented, mood is described as fatigued but hopeful, affect is congruent. Thought process is logical and goal- directed. No evidence of psychosis or cognitive impairment. * Risk reported/identified: Patient denies suicidal ideation, self-harm, or thoughts of harm to others. No acute safety concerns identified. Assessment & Plan Assessment & Plan (1) Bipolar disorder, unspecified: Code(s): F31.9 - Bipolar disorder, unspecified (2) Generalized anxiety disorder: Code(s): F41.1 - Generalized anxiety disorder Plan The patient is encouraged to gradually resume physical activity as tolerated, with a focus on setting realistic and achievable goals. Ongoing monitoring of mood and energy levels will be important, particularly as seasonal changes may continue to impact her symptoms. Support for self-compassion and flexibility in her recovery process will be reinforced. * A follow-up appointment is scheduled in two months, on 04/24/2024 at 10:00 am, to assess progress and adjust interventions as needed. Telehealth Telehealth Telehealth Platform: [facility] Location of provider rendering services: practice address Location of patient: address on file Patient Identification confirmed using: Name, : Yes Telehealth method: voice only Patient verbally consented to treatment: Yes Patient verbally consented to billing insurance company: Yes Patient informed of any privacy concerns related to visit: Yes Minutes spent on Phone/Video with Pt.: 55 [place] [address] Tele Psytx >53 mins Patient Type Established Diagnoses Bipolar disorder, unspecified F31.9 Generalized anxiety disorder F41.1 Time Spent (min) 55
--- OUTSIDE RECORDS SUMMARY | 2025-02-23 11:56 | XMS_ITS | Clinical Summary ---
Author Organization [address] Address [address] [place] [address] [place] [address] Phone Care Team Providers Care Heddle Machine Operator Name Role Phone Vicki Miller MD Primary Care Provider [phone] Allergies Active Allergy Reactions Criticality Noted Date [...] Team Description 01/24/2025 Telephone Obstetrics and Gynecology [place] [address] [place] [address] Lolis Clement CNM from Last 3 Months Immunizations Immunization Administration Dates Next Due Influenza trivalent, with pr eservative (Fluzone; Afluria) 6mo and older 01/07/2012 Surgical History Surgery Date Site/Laterality Comments BACK SURGERY PROCEDURE: HISTORICAL BACK SURGERY; COMMENT: 04/2011 Medical History Medical History Date Comments Deliberate self-cutting DX:Delib erate self-cutting Asthma DX:Asthma Bipolar disorder ([facility]/HCC V24, [facility] V28) DX:Bipolar disorder (HCC) Hypothyroidism DX:Hypothyroidis m Substance abuse (CMS/HCC V24, [facility] V28) DX:Substance abuse (HCC) Family History Medical [...] 06/07/2025 2:15 PM EST Consult Breast Care [address] [phone] Aurelia Rodgers MD [address] [place] [phone] Health Maintenance Due Date Last Done Comments [...] RESULTING AGENCY - 07/14/2022 6:25 AM EDT [id number] THINPREP PAP, IMAGED: NEGATIVE FOR SQUAMOUS INTRAEPITHELIAL [...] AGENCY * (ABNORMAL) Lipid panel (11/18/2011) Pathologist [facility] LDL/HDL Ratio 4 0 - 4 Triglycerides 243(A) 0 - 150 mg/dL Cholesterol 193 0 - 200 mg/dL HDL 52 >=40 mg/dL LDL Cholesterol 93(A) 0 - 10 mg/dL Blood Venous blood specimen / Unknown Historical Provider LAB BLOOD ORDERABLES Emiyl l Result * HIV Screening (08/08/2011) Pathologist [facility] HIV Screening Abstracted Historical Provider HEALTH MAINTENANCE Final Result * Hepatitis C Screening (08/08/2011) Pathologist [facility] Hepatitis C Screening Abstracted [facility] Provider HEALTH MAINTENANCE Final Result from Last 3 Months or Most Recently Relevant to Health Maintenance Insurance [employer] MED[employer] Member Subscriber Plan / Payer (Ef fective 2023-Present) Name:DANIELLA WEATHERS Relation to Subscriber:Self Name:Daniella Weathers Payer ID:[id number] Group ID:[id number] Type:Not on file Address: [place] [address] [place] [address] Care Teams Heddle Machine Operator Relationship Specialty Start Date End Date Vicki Miller MD [address] [place] [address] , [address] Physician Associ D/B/A: [facility] FERMIN Diallo PCP - General Internal Medicine 06/13/14
--- OUTSIDE RECORDS SUMMARY | 2025-02-23 11:56 | XMS_ITS | Encounter Summary ---
Author Organization [facility] Address [address] [place] [address] Care Team Providers Care Auto Collision Repair Instructor Name Role Phone Vicki Miller MD Primary Care Provider [phone] Reason for Referral * Consultation (Routine) - Authorized Specialty Diagnoses / Procedures Referred By Goldie judge Referred To Contact Breast Surgery Diagnoses Family history of breast cancer Lolis Clement CNM [address] [place] [phone] Phone: tel: fax: [facility] [address] [phone] Phone: tel: fax: Referral ID Status Reason Start Date Expiration Date Visits Requested Visits Authorized [id number] Authorized Specialty Services Required 01/24/2025 01/24/2026 1 1 Reason for Visit * Reason Onset Date Comments Request For Order(s) 01/24/2025 Encounter Details Date Type Department Care Team (Late st Contact Info) Description 01/24/2025 Telephone Obstetrics and Gynecology [facility] [address] [place] [address] Lolis Clement CNM [address] [place] [phone] Social History Tobacco Use Types Packs/Day [...] strong historyof breast cancer. Will send message [employer] to see if pt should have early mammogram ordered for strong family history of breast cancer. * Daphney Barbosa - 01/24/2025 9:20 AM EDT Chief Complaint/problem: patient calling in to request a mammogram order be placed for her - she has a strong family history of breast cancer. Please advise How long has the patient had this problem? - Pt???s TACK PULLER provider: Lolis Clement CNM Last menstrual period (LMP) or EDC (due date): - documented in this encounter Plan of Treatment Upcoming Encounters Date Type Department Care Team (Late st Contact Info) Description 06/07/2025 2:15 PM EST [facility] [address] [phone] Aurelia Rodgers MD [address] [place] [phone] Scheduled Referrals Name Type Priority Associated Diagnoses Order Schedule Ambulatory referral to Breast Clinic Outpatient Referral Routine Family history of breast cancer 1 Occurrences starting 01/24/2025 until 01/24/2026 documented as of this encounter Visit Diagnoses Diagnosis Family history of breast cancer- Primary Family history of malignant neoplasm of breast documented in this encounter Care Teams Auto Collision Repair Instructor Relationship Specialty Start Date End Date Vicki Miller MD [address] [place] [address] , [address] [facility] [place] PCP - General Internal Medicine 06/13/14 documented as of this encounter
== END 2025-02-23 10:59 | disposition home or self-care (01) ==
LOC: HO.HBST 10:14
PROVIDERS: PCP Pediatrics; Visit Provider Counselor Mental Health
DX: F31.9 Bipolar disorder, unspecified (principal); F41.1 Generalized anxiety disorder
CPT/HCPCS: 90837

== ENCOUNTER 2025-03-29 09:04 | Outpatient (AMB) | payer OTHER, SELFPAY ==
--- NOTE | 2025-03-29 09:17 | MHC.OFFVISWM ---
VS Expanded 03/29/25 09:27 BP 128/68 Blood Pressure Location Rt brachial Blood Pressure Position Sitting Pulse 78 Pulse Source Pulse Oximeter Temp 97.9 F Temperature Source Temporal Artery Scan Pulse Oximetry 98 Oxygen Delivery Method Room Air Height 5 ft 6 in Weight 203 lb 12.8 oz BMI 32.9 Body Fat % 39.1 Body Fat Mass 79.6 Fat Free Mass 124.2 Visceral Fat Rating 7.0 Body Water % 43.7 Body Water Mass 89.0 Muscle Mass/Score 118.0 Basal Metabolic Rate/Score 1,731 Intake Visit Reasons: OV PO LSG 10/04/24 Allergies fentanyl Allergy (Intermediate, Verified 03/29/25 09:23) rash from fentanyl patch sumatriptan (Imitrex) Allergy (Intermediate, Verified 03/29/25 09:23) chest pain Medication List - Last Reconciled 03/29/25 by MARIAJOSE Herring aripiprazole (Abilify) 30 mg PO BEDTIME blood-glucose sensor (Dexcom G7 Sensor device) As directed cholecalciferol (vitamin D3) 50 mcg PO DAILY duloxetine 60 mg PO DAILY levothyroxine 50 mcg PO DAILY methadone 24 mg PO DAILY zolpidem (Ambien) 5 mg PO BEDTIME PRN HPI Comments Details: This a 29 yo female who is s/p LSG without hiatal hernia repair on 10/04/2024. Presents for 4 month post op visit. Weight today is 203.8 pounds, with a BMI of 33.5. Initial weight 249.4 pounds starting the program on 05/25/2024 and operative weight 231.4 pounds. No complaints of nausea, emesis, abdominal pain or reflux. Reports infrequent but normal bowel movements every 2-3 days and uses stool softeners regularly. She occasionally has low blood sugar at nighttime. She did discuss this with her primary. Some numbers as low as 49. Present meal plan includes: Premier protein rtd 4 oz w 4 oz almond milk, 8-10, 2-4 fit crunch bar 8-10am Fairlife shake or Premier 8oz at 11am-1pm bar 2-4pm meal at 5pm- 3f chicken, 3 bites broccoli 7-9pm protein bar 60 oz water daily Exercise routine includes: treadmill 6-7 days per week (350-400 mary ann split between 2 sessions), speed 3-3.5, incline 10-12 was unable to exercise as much more recently, but plans to incorporate stationary bike Did the patient ever have any of these conditions and are they resolved or still being treated? GERD: resolved ROXANNE:? never DM:? has a Dexcom- last A1C 5.5 HTN:? never Hyperlipidemia:? never Post op complications:? none PFSH Medical History Hypothyroidism Left leg numbness Ambulates with cane Fatty liver Anxiety Obesity Asthma Diabetes Insomnia Back pain Depression Bipolar 1 disorder Morbid obesity Surgical History History of surgery History of surgery Hx of tonsillectomy Hx of discectomy Family History Mother Depression Anxiety Father No problems noted. Social History Household Members: Significant Other Housing: Apartment Are you a primary health care / medical job titles to a significant other at home: No Do you presently have visiting nurse or other home services: No 75 years or older and lives alone: No Alcohol intake: current Alcohol intake frequency: holidays/special occasions only Patient Tobacco Use Status: Former Tobacco user Tobacco use type: Cigarette e-Cigarette/Vaping Use: Former Use Substance Use Type: Opiates service: No Physical Exam Vital Signs: Last Vital Signs Temp 97.9 F 03/29/25 09:27 Pulse 78 03/29/25 09:27 BP 128/68 03/29/25 09:27 Pulse Ox 98 03/29/25 09:27 Oxygen Delivery Method Room Air 03/29/25 09:27 BMI result Body Mass Index 32.9 Assessment & Plan Assessment & Plan (1) Obesity: Code(s): E66.9 - Obesity, unspecified Category: Medical Qualifiers: Obesity type: due to excess calories Obesity classification: adult class 2 (BMI 35 - 39.9) Serious obesity comorbidity presence: without serious comorbidity Body mass index: BMI 37.0-37.9 Qualified Code(s): E66.812 - Obesity, class 2; E66.09 - Other obesity due to excess calories; Z68.37 - Body mass index [BMI] 37.0-37.9, adult (2) S/P laparoscopic sleeve gastrectomy: Code(s): Z98.84 - Bariatric surgery status Category: Medical Plan Pt to continue communicating with Dr Osei. She is happy with how she feels currently. Can use a snack of something with protein + carbs like fruit to help with low blood sugar issues at night. Has been told not to exercise at night and I agree with this. Labs reviewed, vit D ordered. RTC 3mo. Medications: New cholecalciferol (vitamin D3) 50 mcg PO DAILY 90 caps 3RF
[2025-03-29 09:27] VITALS: BP 128/68; PULSE 78; TEMP 36.6; O2SAT 98; BMI 32.9
== END 2025-03-29 10:28 | disposition home or self-care (01) ==
LOC: HO.HBS 09:05
PROVIDERS: PCP Pediatrics; Visit Provider Physician Assistant Surgical
DX: E66.812 Obesity, class 2 (principal); E66.09 Other obesity due to excess calories; Z68.37 Body mass index [BMI] 37.0-37.9, adult; Z98.84 Bariatric surgery status
CPT/HCPCS: 99214; G2211

== ENCOUNTER → 2025-03-29 09:04 | Outpatient (BNVA) | payer OTHER, SELFPAY | PROVIDERS: PCP Pediatrics; Visit Provider Physician Assistant Surgical | DX: Z48.815 Encounter for surgical aftercare following surgery on the digestive system (principal); E66.9 Obesity, unspecified; Z68.32 Body mass index [BMI] 32.0-32.9, adult; Z98.84 Bariatric surgery status | CPT/HCPCS: 99212 ==